=== PATIENT | male | born 1935 | race Caucasian/White ===

== ENCOUNTER → 2018-05-02 | Outpatient (CLI) | payer MEDICARE, OTHER ==
--- NOTE | 2018-05-02 14:00 | XR ---
EXAMINATION TYPE: XR lumbar spine 2 or 3V DATE OF EXAM: 05/02/2018 COMPARISON: None HISTORY: Bilateral sciatica TECHNIQUE: Three-view lumbar spine FINDINGS: There 5 lumbar-type vertebral bodies. Pedicles are intact. There is loss of disc height L3- 4 L4-5 L5-S1. Disc space narrowing is present posteriorly L1-L2 3. Vertebral body heights are preserv ed. Scoliosis is present. IMPRESSION: 1. Degenerative disc changes L3-4 through L5-S1.
== END | disposition home or self-care (01) ==
LOC: RADXRMAIN 11:27
PROVIDERS: ATTEND Family Medicine
DX: M47.817 Spondylosis without myelopathy or radiculopathy, lumbosacral region (principal)
CPT/HCPCS: 72100

== ENCOUNTER 2018-05-05 10:23 | Observation (INO) | payer MEDICARE, OTHER ==
[2018-05-05] MEDS ORDERED: HYDROcodone/APAP 5-325MG 1 EACH TAB PO STA (10:51)
--- NOTE | 2018-05-05 10:58 | ED ---
Back Pain HPI - General Chief Complaint: Back Pain/Injury Stated Complaint: SCIATICA Time Seen by Provider: 05/05/18 10:35 Source: patient Limitations: no limitations - History of Present Illness Initial Comments: Patient is an 82-year-old male presents with a chief complaint back pain and sciatica. The patient states that this pain has been going on for about 5 weeks however has been gradually getting worse. The patient and his state that since yesterday the pain has been so bad that the patient is unable to walk without holding onto something. The patient had a fall yesterday where he hit his head on a garbage can. The patient denies the use of blood thinners. He denies loss of consciousness, he remembers the entire event. Patient cannot identify an inciting incidents to his back pain however he states that he had x- rays previously that showed degenerative disc disease. He is scheduled for an MRI on May 24 of this year. - Related Data Home Medications Medication Instructions Recorded Confirmed Celecoxib [CeleBREX] 200 mg PO BID 05/05/18 05/05/18 Fish Oil/Dha/Epa [Fish Oil 1,200 1 cap PO DAILY 05/05/18 05/05/18 mg Fish Oil] HYDROcodone/APAP 10-325MG [[place] 1 tab PO DAILY PRN 05/05/18 05/05/18 10-325] Lisinopril [Zestril] 5 mg PO HS 05/05/18 05/05/18 Multivitamins, Thera [Multivitamin 1 tab PO DAILY 05/05/18 05/05/18 (formulary)] Saw [place] 500 mg PO DAILY 05/05/18 05/05/18 Simvastatin [Zocor] 20 mg PO HS 05/05/18 05/05/18 Turmeric Root Extract [Turmeric] 500 mg PO DAILY 05/05/18 05/05/18 Allergies Allergy/AdvReac Type Severity Reaction Status Date / Time No Known Allergies Allergy Verified 05/05/18 12:26 Review of Systems ROS Statement: Those systems with pertinent positive or pertinent negative responses have been documented in the HPI. ROS Other: All systems not noted in ROS Statement are negative. Musculoskeletal: Reports: back pain, arthralgia, other Neurological: Reports: abnormal gait Past Medical History Past Medical History: Atrial Fibrillation, Hypertension History of Any Multi-Drug Resistant Organisms: None Reported Past Surgical History: Orthopedic Surgery Past Psychological History: No Psychological Hx Reported Smoking Status: Former smoker Past Alcohol Use History: Rare Past Drug Use History: None Reported General Exam Limitations: no limitations General appearance: alert, in no apparent distress Head exam: Present: normocephalic, other (Patient has a bruise and a small abrasion to the left lateral aspect of his head, just left of the lateral canthus of the left eye.) Eye exam: Present: normal appearance ENT exam: Present: normal exam Neck exam: Present: normal inspection Respiratory exam: Present: normal lung sounds bilaterally. Absent: respiratory distress Cardiovascular Exam: Present: regular rate, normal rhythm GI/Abdominal exam: Present: soft. Absent: distended, tenderness Rectal exam: Present: deferred Extremities exam: Present: normal inspection, other (Patient is a small abrasion over the anterior left knee Secondary to fall) Back exam: Present: normal inspection, other (Patient has limited range of motion in the lumbar spine however he has no tenderness to palpation or percussion of the spine.). Absent: full ROM, tenderness, muscle spasm, paraspinal tenderness, vertebral tenderness Neurological exam: Present: alert, altered, other (Patient has an antalgic gait secondary to pain. Lower extremity reflexes are concerning for a decreased right patellar reflex, left patellar, and bilateral Achilles tendon reflexes are 2+) Psychiatric exam: Present: normal affect, normal mood Skin exam: Present: warm, dry, intact Course Vital Signs 05/05/18 10:29 Temperature 98.3 F Pulse Rate 67 Respiratory 18 Rate Blood Pressure 178/77 O2 Sat by Pulse 98 Oximetry Medical Decision Making - Medical Decision Making Patient is an 82-year-old male who presents with chief complaint back pain. On initial evaluation, vital signs show hypertension but otherwise stable. Patient is in no acute distress. Pulses are 2+ bilaterally in the upper and lower extremities. At this time, patient given [place] for pain, he'll be sent for a computed tomography scan evaluation of the head and C-spine given his recent fall. The family expresses concern about the patient's worsening symptoms and recent fall, I believe that the patient does need an MRI however I believe that it should be expedited as the patient's symptoms continue to worsen. At this time there does not appear to be any symptoms concerning of spinal cord compression as she denies bowel or bladder dysfunction, perennial anesthesia, or any numbness or tingling. Patient is able to ambulate with assistance. 12:[address] evaluation of the head and neck are unremarkable except for moderate degenerative changes of the cervical spine. Lumbar computed tomography scan shows degenerative changes with moderate central canal compromise most notably at L2-L3, L3 and L4. Lab evaluation is unremarkable. This case was discussed with Dr. Finney who accepted admission on behalf of Dr. Ortega. MRI has been ordered. I discussed with the patient, he is agreeable. - Lab Data Result diagrams: 05/05/18 11:00 05/05/18 11:00 Lab Results 05/05/18 05/05/18 05/05/18 Range/Units 11:00 11:00 11:00 WBC 8.0 (3.8-10.6) k/uL RBC 5.37 (4.30-5.90) m/uL Hgb 15.9 (13.0-17.5) gm/dL Hct 48.6 (39.0-53.0) % MCV 90.4 (80.0-100.0) fL MCH 29.6 (25.0-35.0) pg MCHC 32.7 (31.0-37.0) g/dL RDW 13.4 (11.5-15.5) % Plt Count 253 (150-450) k/uL Neutrophils % 78 % Lymphocytes % 13 % Monocytes % 5 % Eosinophils % 2 % Basophils % 0 % Neutrophils # 6.3 (1.3-7.7) k/uL Lymphocytes # 1.1 (1.0-4.8) k/uL Monocytes # 0.4 (0-1.0) k/uL Eosinophils # 0.2 (0-0.7) k/uL Basophils # 0.0 (0-0.2) k/uL PT 10.1 (9.0-12.0) sec INR 1.0 (<1.2) Sodium 141 (137-145) mmol/L Potassium 4.6 (3.5-5.1) mmol/L Chloride 110 H (98-107) mmol/L Carbon Dioxide 19 L (22-30) mmol/L Anion Gap 12 mmol/L BUN 17 (9-20) mg/dL Creatinine 0.74 (0.66-1.25) mg/dL Est GFR (CKD-EPI)AfAm >90 (>60 ml/min/1.73 sqM) Est GFR (CKD-EPI)NonAf 86 (>60 ml/min/1.73 sqM) Glucose 104 H (74-99) mg/dL Calcium 9.2 (8.4-10.2) mg/dL Disposition Clinical Impression: Sciatica, Abnormal gait, Low back pain Disposition: HOME SELF-CARE Condition: Good Is patient prescribed a controlled substance at d/c from ED?: No Decision to Admit Reason: Admit from EC - Out of Hospital Transfer - Req. Specs Out of Hospital Transfer - Requested Specifics: Other Non-Acute
[2018-05-05 11:19] LABS: Basophils % (A) 0 %; Eosinophils # (A) 0.2 k/uL (0-0.7); Eosinophils % (A) 2 %; HCT 48.6 % (39.0-53.0); HGB 15.9 gm/dL (13.0-17.5); Lymphocytes # (A) 1.1 k/uL (1.0-4.8); Lymphocytes % (A) 13 %; MCH 29.6 pg (25.0-35.0); MCHC 32.7 g/dL (31.0-37.0); MCV 90.4 fL (80.0-100.0); Mean Platelet Volume 6.3; Monocytes # (A) 0.4 k/uL (0-1.0); Monocytes % (A) 5 %; Neutrophils # (A) 6.3 k/uL (1.3-7.7); Neutrophils % (A) 78 %; Platelet Count 253 k/uL (150-450); RBC 5.37 m/uL (4.30-5.90); RDW 13.4 % (11.5-15.5)
[2018-05-05 11:24] LABS: Anion Gap 12 mmol/L; Blood Urea Nitrogen 17 mg/dL (9-20); Calcium 9.2 mg/dL (8.4-10.2); Carbon Dioxide 19 mmol/L (22-30); Chloride 110 mmol/L (98-107); Glucose 104 mg/dL (74-99); Potassium 4.6 mmol/L (3.5-5.1); Sodium 141 mmol/L (137-145)
[2018-05-05 11:27] LABS: Prothrombin Time 10.1 sec (9.0-12.0)
--- NOTE | 2018-05-05 11:49 | CT ---
EXAMINATION TYPE: CT lumbar spine wo con DATE OF EXAM: 05/05/2018 11:42 AM COMPARISON: None. HISTORY: Sciatica CT DLP: 779.6 mGycm Automated exposure control for dose reduction was used. Unenhanced CT of the lumbar spine was performed. Bone and soft tissue window settings are submitted as well as coronal and sagittal reconstructions. FINDINGS: Visualized portions of the lungs are clear. There is moderate atheromatous calcification of the aorta. Paraspinal soft tissues are otherwise normal. Vertebral body height and alignment are maintained. There is no evidence of spondylolysis or spondylo listhesis. T12-L1, intervertebral foramina appear well maintained. There is no significant compressive discopath y. The facets are unremarkable. L1-L2: Is mild disc space loss. There is a diffuse disc displacement. The intervertebral foramina are widely maintained. There is minor hypertrophic change in the facets. L2-L3: The intervertebral foramina are widely maintained. There is a diffuse disc displacement. This hypertrophic changes in the facets. There is moderate central canal stenosis. L3-L4: There is marked disc space loss. The intervertebral foramina appear well maintained. There is a diffuse disc displacement. This hypertrophic changes in the facets. There is moderate central canal stenosis. L4-L5: There is disc space loss. There is spondylosis deformans present. There is right-sided interve rtebral foraminal narrowing. There is a diffuse disc displacement. There are hypertrophic changes in the facets. There is mild trefoiling of the thecal sac. L5-S1: There is disc space loss and a vacuum phenomena. There is mild, bilateral intervertebral lit inal narrowing. There is hypertrophic changes in the facets. IMPRESSION: 1. DIFFUSE DEGENERATIVE DISC DISEASE AND FACET ARTHROPATHY. 2. VARYING DEGREES OF CENTRAL CANAL COMPROMISE, MOST MARKED AT L2-3 AND L3-4.
[2018-05-05] MEDS ORDERED: NALOXONE 0.4 MG/ML 1 ML VIAL IV PRN (11:53)
[2018-05-05] MEDS ORDERED: HYDROcodone/APAP 5-325MG 1 EACH TAB PO PRN (11:53)
--- NOTE | 2018-05-05 12:01 | CT ---
EXAMINATION TYPE: CT brain manolo aguilar DATE OF EXAM: 05/05/2018 COMPARISON: NONE HISTORY: fall CT DLP: 1368 mGycm Automated exposure control for dose reduction was used. TECHNIQUE: CT scan of the head and cervical spine are performed without contrast. FINDINGS: BRAIN: There are generalized changes of sulcal prominence and ventriculomegaly, compatible with atrop hic change. There is diffuse periventricular white matter lucency, compatible with small vessel ische gissell change. There is no acute focal lesion, mass effect or midline shift identified. I do not see blanka dence of intracranial blood. There is minimal, chronic ethmoidal sinus mucosal disease. The bony calvarium is intact. IMPRESSION: 1. NO ACUTE INTRACRANIAL ABNORMALITY. 2. MINIMAL, CHRONIC SINUS MUCOSAL DISEASE. 3. DEGENERATIVE CHANGE. CERVICAL SPINE: There are emphysematous changes within the lungs. Prevertebral soft tissues are normal. There is a retrograde listhesis of C3 on C4 and a mild antegrade listhesis of C4 on C5. Atlantoaxial relationships are normal. There is disc space loss and hypertrophic spondylosis at C3-4, C5-6 and C6- 7. There is uncovertebral joint disease present at these levels. There is facet arthropathy on the le ft at C2-3 and on the right at C4-5. There is left-sided facet arthropathy at C5-6 and C6-7. No protr usion is seen. No fracture is identified. IMPRESSION: 1. NO ACUTE OSSEOUS ABNORMALITY. 2. MODERATE DEGENERATIVE CHANGE.. 3. EMPHYSEMATOUS CHANGE.
[2018-05-05] MEDS ORDERED: HYDROcodone/APAP 10-325MG 1 EACH TAB PO PRN (13:26)
[2018-05-05] MEDS ORDERED: ALPRAZolam 0.25 MG TAB PO PRN (13:27)
[2018-05-05] MEDS ORDERED: MELATONIN 3 MG TABLET PO PRN (13:27)
[2018-05-05] MEDS ORDERED: HYDROmorphone 1 MG/ML 1 ML SYRINGE IVP PRN (13:27)
[2018-05-05] MEDS ORDERED: ACETAMINOPHEN TAB 500 MG TAB PO PRN (13:27)
[2018-05-05 15:35] VITALS: BMI 29.1
[2018-05-05] MEDS ORDERED: hydrALAZINE HCL 20 MG/ML 1 ML VIAL IVP PRN (15:51)
[2018-05-05] MEDS ORDERED: KETOROLAC 30 MG/ML 1 ML VIAL IVP PRN (15:52)
[2018-05-05 17:04] LABS: Glucose,Whole Blood 131 mg/dL (75-99)
[2018-05-05 17:33] LABS: Appearance,Urine Clear (Clear); Bilirubin,Urine Negative (Negative); Blood,Urine Negative (Negative); Color,Urine Yellow; Glucose,Urine (UA) Negative (Negative); Ketones,Urine Negative (Negative); Leukocyte Esterase,Urine Negative (Negative); Nitrite,Urine Negative (Negative); Protein,Urine Negative (Negative); Specific Gravity,Urine 1.022 (1.001-1.035); Urobilinogen,Urine <2.0 mg/dL (<2.0)
[2018-05-05] MEDS: methylPREDNISolone SOD SUCCI 125 MG/2 ML VIAL IV SCH ×2 (17:47→23:16)
[2018-05-05] MEDS: INSULIN ASPART 100 UNIT/ML 1 ML 10 ML VIAL SQ SCH ×2 (17:49→22:21)
--- NOTE | 2018-05-05 19:50 | P.CNOR ---
History of Present Illness - [facility] Consult date: 05/05/18 Consult reason: low back pain History of present illness: This is an 82-year-old male with a fairly recent history of low back pain. He states that he has been having pain for the last 5 weeks or so but has been progressively worse over the past week. He states that he has noticed difficulty walking secondary to pain as well as weakness in his legs. He denies numbness or tingling but states that his legs "won't do what he wants them to do". He states that he fell yesterday due to the weakness in his legs. He reports no bowel or bladder changes. His back pain became worse after the fall. He is brought to the emergency department this morning by family and admitted to observation. We're consulted for orthopedic spine evaluation. Past Medical History Past Medical History: Atrial Fibrillation, Eye Disorder, Hyperlipidemia, Hypertension History of Any Multi-Drug Resistant Organisms: None Reported Past Surgical History: Orthopedic Surgery Additional Past Surgical History / Comment(s): right rotator cuff, bilateral carpal tunnel Past Anesthesia/Blood Transfusion Reactions: No Reported Reaction Past Psychological History: No Psychological Hx Reported Smoking Status: Former smoker Past Alcohol Use History: Rare Past Drug Use History: None Reported Medications and Allergies Home Medications Medication Instructions Recorded Confirmed Type Celecoxib [CeleBREX] 200 mg PO BID 05/05/18 05/05/18 History Fish Oil/Dha/Epa [Fish Oil 1,200 1 cap PO DAILY 05/05/18 05/05/18 History mg Fish Oil] HYDROcodone/APAP 10-325MG [[place] 1 tab PO DAILY PRN 05/05/18 05/05/18 History 10-325] Lisinopril [Zestril] 5 mg PO HS 05/05/18 05/05/18 History Multivitamins, Thera [Multivitamin 1 tab PO DAILY 05/05/18 05/05/18 History (formulary)] Saw [place] 500 mg PO DAILY 05/05/18 05/05/18 History Simvastatin [Zocor] 20 mg PO HS 05/05/18 05/05/18 History Turmeric Root Extract [Turmeric] 500 mg PO DAILY 05/05/18 05/05/18 History Allergies Allergy/AdvReac Type Severity Reaction Status Date / Time No Known Allergies Allergy Verified 05/05/18 12:26 Physical Examination This is a pleasant 82-year-old male in no acute distress. He is alert and oriented 3. Exam of his head neck reveal no obvious deformity. There is a small scratch over his left eye. He has full cervical spine motion without difficulty or pain. There is no pain to palpation about the cervical spine or paraspinal musculature. Exam of the upper extremities is unremarkable. He has fairly good shoulder, elbow, wrist and finger motion without difficulty or pain. Exam of the thoracic and lumbar spine reveal no obvious deformity. There is mild pain with palpation about the lower lumbar spine and paraspinal musculature. Exam of the lower extremities reveals no deformity. There is an abrasion about the left lower leg which is covered with clean dressing. He is able to wiggle toes. He has weakness with dorsiflexion of the great toes against resistance bilaterally. Strength is +2-3/5 bilaterally. Plantar flexion against resistance is +5/5 bilaterally. He is able to lift each leg off the bed independently but is unable to sustain leg raise against resistance. Pedal pulses are +2/4 bilaterally. Capillary refills less than [address] of the lumbar spine reveals degenerative changes. There is significant degenerative disc disease at L3-4 and L4-5. There is some spinal canal stenosis noted. No compression fractures identified. - Labs Labs: Abnormal Lab Results - Last 24 Hours (Table) 05/05/18 05/05/18 Range/Units 11:00 17:02 Chloride 110 H (98-107) mmol/L Carbon Dioxide 19 L (22-30) mmol/L Glucose 104 H (74-99) mg/dL POC Glucose (mg/dL) 131 H (75-99) mg/dL H & H 05/05/18 Range/Units 11:00 Hgb 15.9 (13.0-17.5) gm/dL Hct 48.6 (39.0-53.0) % Coagulation 05/05/18 Range/Units 11:00 INR 1.0 (<1.2) Result Diagrams: 05/05/18 11:00 05/05/18 11:00 Assessment and Plan (1) Lumbar degenerative disc disease Current Visit: Yes Status: Acute Code(s): M51.36 - OTHER INTERVERTEBRAL DISC DEGENERATION, LUMBAR REGION SNOMED Code(s): 65365968 (2) Lumbar canal stenosis Current Visit: Yes Status: Acute Code(s): M48.061 - SPINAL STENOSIS, LUMBAR REGION WITHOUT NEUROGENIC KJ SNOMED Code(s): 53841474 (3) Low back pain Current Visit: Yes Status: Acute Code(s): M54.5 - LOW BACK PAIN SNOMED Code(s): 658032528 Plan: The clinical and radiographic findings are discussed the patient. I have started site Medrol 80 mg IVP every 8 hours 3 doses. The patient has been ambulating in the hallway with a walker since the first dose of steroid. An MRI has been ordered by the emergency department. MRI will most likely be done on Monday. We will await results of the MRI and proceed with recommendations as indicated at that time. He is to report any changes in bowel or bladder or increased weakness to the lower extremities.
[2018-05-05] MEDS ORDERED: MELOXICAM 7.5 MG TAB PO SCH (21:00)
--- NOTE | 2018-05-05 21:44 | HP ---
HISTORY AND PHYSICAL DATE OF SERVICE: 05/05/2018 CHIEF COMPLAINT: Back pain. HISTORY OF PRESENT ILLNESS: This 82-year-old gentleman with a past medical history of multiple medical problems, including atrial fibrillation, hypertension, hyperlipidemia, being followed by Dr. Ricardo Ortega in the outpatient setting, is complaining of back pain for the last 5 weeks. The pain was felt in the back and radiating downward to both legs. Because of increasing pains, the patient came to [place]. Patient unable to walk. Patient also took a fall, scraping the left knee also. There is no history of fever, rigors, chills at this time. CT scan of the back showed diffuse DJD varying degrees of central canal compromise, also. There is no history of fever, rigors. No history of any headache, loss consciousness, seizures at this time. PAST MEDICAL HISTORY: History of atrial fibrillation, history of hypertension, hyperlipidemia, history of DJD. HOME MEDICATIONS: 1. Turmeric extract 500 mg p.o. daily. 2. Zocor 20 mg q.h.s. 3. Saw [place] 500 mg p.o. daily. 4. Multivitamins 1 p.o. daily. 5. Zestril 5 mg q.h.s. 6. [place] 1 tablet b.i.d. p.r.n. 7. Fish oil 1 capsule b.i.d. 8. Celebrex 200 mg b.i.d. ALLERGIES: None. FAMILY HISTORY: No history of heart disease or strokes in the family. SOCIAL HISTORY: previous history of smoking. Occasional alcohol intake. REVIEW OF SYSTEMS: ENT: No diminished hearing, diminished vision. CARDIOVASCULAR: No angina, palpitations. RESPIRATORY: No cough or hemoptysis. GI: No nausea or vomiting. : No dysuria. NERVOUS: No numbness or weakness. ALLERGY/IMMUNOLOGY: No asthma or hay fever. MUSCULOSKELETAL: As mentioned earlier. HEMATOLOGY/ONCOLOGY: No history of anemia. ENDOCRINE: No history of diabetes, hypothyroidism. CONSTITUTIONAL: As mentioned earlier. DERMATOLOGY: Negative. RHEUMATOLOGY: Negative. PSYCHIATRY: As mentioned earlier. PHYSICAL EXAMINATION: Alert oriented x3. Pulse 59, blood pressure 166/90, respirations 16, temperature 97.2, pulse ox 96% on room air. HEENT: Conjunctivae normal. Oral mucosa moist. NECK: No jugular venous distention. No carotid bruits. No lymph node enlargement. CARDIOVASCULAR: S1, S2 muffled. RESPIRATORY: Breath sounds diminished in the bases. No rhonchi. No crackles. ABDOMEN: Soft, nontender. No mass palpable. LEGS: No edema. No swelling. NERVOUS SYSTEM: Higher functions as mentioned earlier. Moves all 4 limbs. No focal motor or sensory deficits. LYMPHATIC: No lymphadenopathy in neck or axillae. SKIN: No ulcer, rash or bleeding. BACK: Some tenderness present. Some gait dysfunction also present. LABS: CBC within normal limits. CO2 is 19. ASSESSMENT: 1. Back pain with sciatica with severe degenerative joint disease. 2. Varying degrees of central canal compromise, marked at L2-3 and L3-4. 3. Gait dysfunction. 4. Atrial fibrillation. 5. Hypertension. 6. Hyperlipidemia. 7. History of degenerative joint disease. 8. History of nicotine dependence. RECOMMENDATIONS AND DISCUSSION: In this 82-year-old gentleman who presented with multiple complex medical issues , we will monitor the patient closely, continue the current medical management and continue symptomatic treatment. Otherwise, orthopedic evaluation, IV steroids have been recommended by Orthopedics. Resume the home medications, oral pain medications. I would also recommend to continue the current medications and further recommendations to follow. See orders for further details. MMODL / IJN: [id number] / MTDD
[2018-05-05 22:19] LABS: Glucose,Whole Blood 159 mg/dL (75-99)
[2018-05-05] MEDS: LISINOPRIL 5 MG TAB PO SCH (22:21)
[2018-05-05] MEDS: ATORVASTATIN 10 MG TAB PO SCH (22:21)
[2018-05-05] MEDS: HEPARIN SODIUM,PORCINE 5,000 UNIT/ML 1 ML VIAL SQ SCH (22:21)
[2018-05-06 06:56] LABS: Glucose,Whole Blood 161 mg/dL (75-99)
[2018-05-06 07:32] LABS: Basophils % (A) 0 %; Eosinophils % (A) 0 %; HCT 49.3 % (39.0-53.0); HGB 16.2 gm/dL (13.0-17.5); Lymphocytes # (A) 0.6 k/uL (1.0-4.8); Lymphocytes % (A) 8 %; MCH 29.6 pg (25.0-35.0); MCHC 32.9 g/dL (31.0-37.0); MCV 90.1 fL (80.0-100.0); Mean Platelet Volume 6.4; Monocytes # (A) 0.1 k/uL (0-1.0); Monocytes % (A) 2 %; Neutrophils # (A) 6.8 k/uL (1.3-7.7); Neutrophils % (A) 90 %; Platelet Count 268 k/uL (150-450); RBC 5.48 m/uL (4.30-5.90); RDW 13.2 % (11.5-15.5); WBC 7.6 k/uL (3.8-10.6)
[2018-05-06 07:45] LABS: Anion Gap 10 mmol/L; Blood Urea Nitrogen 19 mg/dL (9-20); Carbon Dioxide 24 mmol/L (22-30); Chloride 105 mmol/L (98-107); Glucose 174 mg/dL (74-99); Sodium 139 mmol/L (137-145)
[2018-05-06] MEDS ORDERED: NON-FORMULARY DRUG (Fish Oil/Dha/Epa [Fish Oil 1,200 Mg Fish Oil] 1 CAP) PO SCH (09:00)
[2018-05-06] MEDS ORDERED: NON-FORMULARY DRUG (Saw Palmetto [Saw Palmetto] 500 MG) PO SCH (09:00)
[2018-05-06] MEDS: INSULIN ASPART 100 UNIT/ML 1 ML 10 ML VIAL SQ SCH ×2 (09:22→15:51)
[2018-05-06] MEDS: methylPREDNISolone SOD SUCCI 125 MG/2 ML VIAL IV SCH (09:22)
[2018-05-06] MEDS: HEPARIN SODIUM,PORCINE 5,000 UNIT/ML 1 ML VIAL SQ SCH ×2 (09:22→20:45)
[2018-05-06] MEDS: MULTIVITAMINS, THERA 1 EACH TAB PO SCH (09:23)
[2018-05-06] MEDS: PANTOPRAZOLE 40 MG TABLET PO SCH (09:23)
--- NOTE | 2018-05-06 09:45 | P.PN ---
Subjective Progress Note Date: 05/06/18 Principal diagnosis: Low back pain. Lumbar stenosis. Lumbar degenerative disc disease. This is an 82-year-old male who we are following regarding his low back pain with lower extremity weakness. He states that his pain is improved today. He has been ambulating without the use of the walker today. He is awaiting MRI tomorrow. Objective - Vital Signs Vital signs: Vital Signs Temp 97.8 F 05/06/18 08:00 Pulse 100 05/06/18 08:00 Resp 18 05/06/18 08:00 BP 148/89 05/06/18 08:00 Pulse Ox 91 L 05/06/18 08:00 Intake & Output 05/05/18 05/06/18 05/06/18 18:59 06:59 18:59 Weight 84.3 kg Other: Voiding Method Toilet Toilet # Voids 2 - Exam This is a pleasant 82-year-old male in no acute distress. He is alert and oriented 3. He is sitting up in a chair. He has less pain with palpation about the lumbar spine today. He continues to have weakness to the lower extremities on exam but no pain with motion of the legs today. Pedal pulse is + 2/4 bilaterally. Sensation is intact. - Labs CBC & Chem 7: 05/06/18 07:01 05/06/18 07:01 Labs: Abnormal Lab Results - Last 24 Hours (Table) 05/05/18 05/05/18 05/05/18 Range/Units 11:00 17:02 22:17 Lymphocytes # (1.0-4.8) k/uL Chloride 110 H (98-107) mmol/L Carbon Dioxide 19 L (22-30) mmol/L Glucose 104 H (74-99) mg/dL POC Glucose (mg/dL) 131 H 159 H (75-99) mg/dL 05/06/18 05/06/18 05/06/18 Range/Units 06:54 07:01 07:01 Lymphocytes # 0.6 L (1.0-4.8) k/uL Chloride (98-107) mmol/L Carbon Dioxide (22-30) mmol/L Glucose 174 H (74-99) mg/dL POC Glucose (mg/dL) 161 H (75-99) mg/dL Assessment and Plan (1) Lumbar degenerative disc disease Current Visit: Yes Status: Acute Code(s): M51.36 - OTHER INTERVERTEBRAL DISC DEGENERATION, LUMBAR REGION SNOMED Code(s): 42483171 (2) Lumbar canal stenosis Current Visit: Yes Status: Acute Code(s): M48.061 - SPINAL STENOSIS, LUMBAR REGION WITHOUT NEUROGENIC KJ SNOMED Code(s): 14804049 (3) Low back pain Current Visit: Yes Status: Acute Code(s): M54.5 - LOW BACK PAIN SNOMED Code(s): 418439033 Plan: The clinical and radiographic findings are discussed the patient. Complete the 3 doses of Solu-Medrol today. We'll continue to follow and await MRI results. We will most likely send him home on a tapered prednisone dose.
[2018-05-06 12:09] LABS: Glucose,Whole Blood 168 mg/dL (75-99)
[2018-05-06 16:01] VITALS: RESP 16
--- NOTE | 2018-05-06 16:37 | PN ---
PROGRESS NOTE I am covering for Dr. Ricardo Ortega. This 82-year-old gentleman who was admitted with back pains, headache, is on IV steroids. Patient is improving slightly and MRI is also ordered. No chest pain. No palpitations. No fever. PHYSICAL EXAM: Alert and oriented x3. Pulse 100, blood pressure 14/80 respiration 18, temperature 97.8, pulse ox 98% on room air. HEENT: Conjunctivae normal. Oral mucosa moist. NECK: No jugular venous distention. No lymph nodes. CARDIAC: S1, S2. RESPIRATORY: Diminished breath sounds at the bases. No rhonchi. ABDOMEN: Soft, nontender. LEGS: Movements are minimally painful. NERVOUS SYSTEM: No focal deficits. LABS: CBC within normal limits. Glucose 174. ASSESSMENT: 1. Back pain, sciatica with severe degenerative joint disease. 2. Varying degrees of central canal compromise marked at L2-3, L3-4 on MRI. 3. Gait dysfunction. 4. Atrial fibrillation. 5. Hypertension. 6. History of degenerative joint disease. 7. History of nicotine dependence. RECOMMENDATIONS: Recommend to continue current management, continue symptomatic treatment, continue with IV steroids. Increase ambulation. MRI per Orthopedic surgery. Dr. Ortega will follow. MMODL / IJN: [id number] /
[2018-05-06 17:20] LABS: Glucose,Whole Blood 219 mg/dL (75-99)
[2018-05-06 20:40] LABS: Glucose,Whole Blood 185 mg/dL (75-99)
[2018-05-06] MEDS: ATORVASTATIN 10 MG TAB PO SCH (20:44)
[2018-05-06] MEDS: LISINOPRIL 5 MG TAB PO SCH (20:44)
[2018-05-07 07:38] LABS: Basophils % (A) 0 %; Eosinophils % (A) 0 %; HCT 47.2 % (39.0-53.0); HGB 15.7 gm/dL (13.0-17.5); Lymphocytes # (A) 1.8 k/uL (1.0-4.8); Lymphocytes % (A) 14 %; MCH 29.5 pg (25.0-35.0); MCHC 33.3 g/dL (31.0-37.0); MCV 88.6 fL (80.0-100.0); Mean Platelet Volume 6.4; Monocytes # (A) 0.6 k/uL (0-1.0); Monocytes % (A) 5 %; Neutrophils # (A) 10.4 k/uL (1.3-7.7); Neutrophils % (A) 80 %; Platelet Count 334 k/uL (150-450); RBC 5.32 m/uL (4.30-5.90); RDW 13.4 % (11.5-15.5); WBC 12.9 k/uL (3.8-10.6)
[2018-05-07 07:56] LABS: Calcium 10.1 mg/dL (8.4-10.2); Potassium 4.7 mmol/L (3.5-5.1)
[2018-05-07] MEDS: MULTIVITAMINS, THERA 1 EACH TAB PO SCH (08:33)
[2018-05-07] MEDS: PANTOPRAZOLE 40 MG TABLET PO SCH (08:33)
[2018-05-07] MEDS: HEPARIN SODIUM,PORCINE 5,000 UNIT/ML 1 ML VIAL SQ SCH (08:33)
--- NOTE | 2018-05-07 09:00 | P.PN ---
Progress Note - Text Progress Note Date: 05/07/18 Patient is a very pleasant 82-year-old male who is seen and examined at bedside for follow up evaluation in regards to his low back pain and bilateral lower extremity weakness. He states his symptoms became severe on Monday he presented to the hospital for further evaluation. Since that time he was given Solu-Medrol 80 mg every 8 hours for 3 doses. Since that time his symptoms have had significant improvement. He is not currently experiencing significant lower extremity weakness or radiculopathy bilaterally. He has previously had some pain radiating down the posterior thighs and in the posterior calves bilaterally. He is able to stand and move without significant difficulty. He does feel he is improved significantly over the weekend and would like to be discharged home today. He is currently planning to have an MRI lumbar spine to be performed this morning. He had a CT of the lumbar spine performed which did show evidence of lumbar degenerative disc disease with some spinal canal stenosis. Physical exam: Patient is awake, alert, and oriented 3 Vital signs stable Good chest excursion with deep inspiration and expiration Abdomen soft nontender Examination of lumbar spine reveals skin is intact with no abrasions, lacerations, or bruises; no erythema, purulence or signs of infection Mild pain with palpation of the lower lumbosacral spine along the midline Dorsiflexion, plantarflexion, and extensor hallucis longus positive sustained bilaterally Able to stand on toes bilaterally without difficulty Some difficulty with standing on heels bilaterally Able to perform active hip flexion and knee extension against resistance without difficulty bilaterally Patient is able to stand and change positions without significant difficulty No signs or symptoms of DVT; no calf pain Neurovascularly intact Assessment: Low back pain Bilateral lower extremity weakness L3-4 and L4 to S5 significant degenerative disc disease Lumbar spinal canal stenosis Plan: 1. After physical examination of the patient further discussion with the patient, his symptoms have improved over the weekend. He is moving well without significant difficulty. He is able to actively perform active range of motion bilateral lower extremities without significant difficulty. He has some difficulty standing on his heels bilaterally. He is not currently experiencing significant low back pain but some back pain continues to be present. His legs feel stronger this morning than they did over the weekend. He is currently waiting for an MRI of the lumbar spine to be performed. We discussed we will review the MRI results. Given the significant improvement of his overall symptoms, we're not currently planning for acute surgical intervention in regards to his lumbar spine. We are currently planning to continue with treatment in the outpatient setting. We discussed that if he needed consultation and possible treatment with pain management or the possibility of surgical intervention if he were to fail all conservative treatment options, this can be discussed in detail in the outpatient setting. As previously discussed, we will plan to discharge him on a steroid taper at discharge. A prescription for prednisone 10 mg taper as written, signed, and placed in the patient's chart. From an orthopedic spine standpoint, patient is clear for discharge pending MRI results and clearance by medicine. 2. Medicine will continue to follow patient closely 3. Following discharge, patient a final with Nas Hernandez PA-C or Dr. John Rouse at [facility] in 2 weeks for further evaluation 4. Patient has been discussed in detail with Dr. John Rouse and he agrees with this plan
[2018-05-07 11:29] LABS: Hemoglobin A1C 6.4 % (4.0-6.0)
--- NOTE | 2018-05-07 12:22 | MR ---
EXAMINATION TYPE: MR lumbar spine wo/w con DATE OF EXAM: 05/07/2018 COMPARISON: CT lumbar spine 05/05/2018 HISTORY: sciatica TECHNIQUE: Multiplanar, multisequence images of the lumbar spine were acquired utilizing 8.5 mL intravenous Gada vist gadolinium contrast. L1-L2: There is a left posterior paracentral disc herniation resulting in moderate to severe canal st enosis, possible mass effect on the conus. Facet arthropathy with hypertrophy ligamentum flavum cause s some posterior lateral mass effect on the thecal sac. No significant foraminal encroachment. L2-L3: Posterior extension of endplate disc complex results in anterior mass effect on the thecal sac . Facet arthropathy causes posterior lateral mass effect on the thecal sac, there is moderate central canal stenosis. L3-L4: Posterior extension of endplate disc complex causes some anterior mass effect on the thecal sa c. Facet arthropathy causes posterior lateral mass effect on the thecal sac and encroaches on the lat eral recesses, there is some trefoil appearance of the thecal sac, differential extension of endplate disc complex results in greater left-sided foraminal encroachment. L4-L5: Posterior extension of endplate disc complex causes some anterior mass effect on the thecal sa c. Circumferential extension of endplate disc complex results in foraminal encroachment greater on th e right than on the left. Facet arthropathy with hypertrophy of the ligamentum flavum causes some pos terior lateral mass effect on the thecal sac right greater than left likely accentuated by spinal cur vature. L5-S1: Circumferential disc bulge, extension of endplate disc complex causes foraminal encroachment a nd contact the anterior thecal sac. Facet arthropathy changes present. No significant central stenosi s. Lumbar segments are intact. No paraspinal masses are identified. Conus medullaris has a normal appe arance. There is multilevel spondylosis with endplate discogenic marrow signal change. Loss of disc h eight and signal present at the intervertebral levels, there is multilevel vacuum disc phenomenon pre sent. There is a mild spinal curvature. Probable focal hemangioma present within the L2 vertebral bod y. Some minimal peripheral enhancement noted at the level of the patient's disc herniation at L1-2. N o additional abnormal enhancement following contrast administration. IMPRESSION: Degenerative disc disease, disc herniation at L1-2 with possible mass effect on the conus medullaris, multilevel spinal stenosis, multilevel foraminal encroachment, facet arthropathy as described.
--- NOTE | 2018-05-07 15:44 | DS ---
DISCHARGE SUMMARY FINAL DIAGNOSES: 1. Back pain, sciatica with severe degenerative joint disease. 2. Varying degrees of central canal compression marked at L2-3 and L3-4 on MRI. 3. Gait dysfunction. 4. Atrial fibrillation. 5. Hypertension. 6. History of degenerative joint disease. 7. History of nicotine dependence. DISCHARGE DISPOSITION: The patient is being discharged in stable condition with guarded prognosis. HISTORY OF PRESENT ILLNESS: This 82-year-old gentleman with past medical history of multiple medical problems is being by Dr. Ricardo Ortega in the outpatient setting for severe back pain and sciatica, gait dysfunction. The patient is treated with steroids which offered some symptomatic relief. Orthopedic Surgery saw the patient. Recommended outpatient followup. On exam, vitals are stable. Cardiovascular S1, S2. Abdomen soft. Nervous system: No focal deficits. DISCHARGE ADVICE AND MEDICATIONS: 1. Diet is cardiac diet. 2. Activity limited until followup. 3. Follow up with Dr. Ricardo Ortega in 2-3 days. 4. Follow up with Dr. Rouse as recommended. MEDICATIONS: 1. Fish oil 1 p.o. daily. 2. [place] 10 mg daily p.r.n. 3. Zestril 5 mg q.h.s. 4. Multivitamins one p.o. daily. 5. Saw palmetto 500 mg daily. 6. Zocor 20 mg q.h.s. 7. Turmeric extract 500 mg p.o. daily. 8. Protonix 40 mg daily. 9. Prednisone taper per orthopedic surgery that will be 30 mg daily for 4 days, 20 for 4 days, 10 for 4 days. 10.Silver sulfadiazine local application. Once again, the patient is being discharged in stable condition with guarded prognosis. PT/OT evaluation and possible walker also being arranged. MMODL / IJN: [id number] /
[2018-05-07 15:50] VITALS: BP 136/75; PULSE 64; TEMP 97.9
== END 2018-05-07 16:06 | disposition home or self-care (01) ==
LOC: EC 10:23 → 3OBS 11:53
PROVIDERS: ADMIT Family Medicine; ATTEND Family Medicine
DX: M47.26 Other spondylosis with radiculopathy, lumbar region (principal); M48.061 Spinal stenosis, lumbar region without neurogenic claudication; M51.16 Intervertebral disc disorders with radiculopathy, lumbar region; M51.36 Other intervertebral disc degeneration, lumbar region; R26.9 Unspecified abnormalities of gait and mobility; E78.5 Hyperlipidemia, unspecified; M19.90 Unspecified osteoarthritis, unspecified site; H57.9 Unspecified disorder of eye and adnexa; R53.1 Weakness; R51 Headache; I48.91 Unspecified atrial fibrillation; I10 Essential (primary) hypertension; S00.83XA Contusion of other part of head, initial encounter; W01.198A Fall on same level from slipping, tripping and stumbling with subsequent striking against other object, initial encounter; Z87.891 Personal history of nicotine dependence; Z79.891 Long term (current) use of opiate analgesic; Z79.899 Other long term (current) drug therapy
CPT/HCPCS: 99284 ×2; 96374; 96376 ×2; 36415; 97161; 97165; 80048 ×3; 85025 ×3; 85610; 81003; 83036; 72125; 72131; 70450; 72158; G0378 ×3; J1644 ×3; J2930 ×2; A9581

== ENCOUNTER → 2020-10-06 | Outpatient (CLI) | payer MEDICARE, OTHER ==
--- NOTE | 2020-10-06 11:00 | XR ---
EXAMINATION TYPE: XR chest 2V DATE OF EXAM: 10/06/2020 COMPARISON: NONE HISTORY: Cough TECHNIQUE: Frontal and lateral views of the chest are obtained. FINDINGS: There is no focal air space opacity, pleural effusion, or pneumothorax seen. The cardiac silhouette size is within normal limits. The aorta is dense. There are prominent lung volume suggest ing underlying COPD. The osseous structures are intact, postop change noted to the right humerus. IMPRESSION: No acute cardiopulmonary process.
== END | disposition home or self-care (01) ==
LOC: RADXRMAIN 09:32
PROVIDERS: ATTEND Family Medicine
DX: R05 Cough (principal)
CPT/HCPCS: 71046

== ENCOUNTER 2021-02-25 03:29 | Emergency (ER) | payer MEDICARE, OTHER ==
[2021-02-25 03:38] VITALS: PULSE 65; TEMP 97.5
--- NOTE | 2021-02-25 04:30 | ED ---
SOB HPI - General Chief Complaint: Shortness of Breath Stated Complaint: ALAN Time Seen by Provider: 02/25/21 04:16 Source: patient, family Mode of arrival: wheelchair Limitations: no limitations - History of Present Illness Initial Comments: This patient is an 85-year-old man who presents to be evaluate for shortness of breath. The patient states that he had been feeling pretty well today until he got up this morning to use the bathroom. When he went back to bed to lie down and he was feeling like he was short of breath. When I see the patient this morning, he states that the symptoms have resolved since leaving home. The patient has been having problems with intermittent shortness of breath since the end of December. At that time he had developed a significant cough, and was seen at his physician office and also an urgent care. He had been given course of steroid, and inhaler, and medication for reflux. The cough and breathing seemed to improve somewhat so they could not tell which medication seem to bring on the improvement. He has not had fever or chills. No chest pain. No leg pain or swelling. No change in urination or bowel movements. MD Complaint: shortness of breath, cough Onset/Timin -: month(s) Severity scale (1-10): 0 Consistency: constant Improves With: nothing Worsens With: nothing Associated Symptoms: denies other symptoms - Related Data Home Medications Medication Instructions Recorded Confirmed Fish Oil/Dha/Epa [Fish Oil 1,200 1 cap PO DAILY 05/05/18 05/05/18 mg Fish Oil] HYDROcodone/APAP 10-325MG [[place] 1 tab PO DAILY PRN 05/05/18 05/05/18 10-325] Multivitamins, Thera [Multivitamin 1 tab PO DAILY 05/05/18 05/05/18 (formulary)] Saw [place] 500 mg PO DAILY 05/05/18 05/05/18 Simvastatin [Zocor] 20 mg PO HS 05/05/18 05/05/18 Turmeric Root Extract [Turmeric] 500 mg PO DAILY 05/05/18 05/05/18 lisinopriL [Zestril] 5 mg PO HS 05/05/18 05/05/18 Previous Rx's Medication Instructions Recorded Pantoprazole [Protonix] 40 mg PO IRASEMA-BRKFST #30 tablet. 05/07/18 SILVER sulfADIAZINE CREAM 1 applic TOPICAL DAILY applic 05/07/18 [Silvadene Cream] predniSONE See Taper PO DAILY #24 tab 05/07/18 Allergies Allergy/AdvReac Type Severity Reaction Status Date / Time No Known Allergies Allergy Verified 02/25/21 03:38 Review of Systems ROS Statement: Those systems with pertinent positive or pertinent negative responses have been documented in the HPI. ROS Other: All systems not noted in ROS Statement are negative. Constitutional: Denies: fever, chills ENT: Denies: throat pain Respiratory: Reports: cough, dyspnea. Denies: wheezes, hemoptysis Cardiovascular: Reports: orthopnea. Denies: chest pain, palpitations, edema, syncope Gastrointestinal: Denies: abdominal pain, nausea, vomiting, diarrhea Genitourinary: Denies: dysuria, hematuria Musculoskeletal: Denies: back pain Skin: Denies: rash Neurological: Denies: headache, weakness, numbness Past Medical History Past Medical History: Atrial Fibrillation, Eye Disorder, Hyperlipidemia, Hypertension History of Any Multi-Drug Resistant Organisms: None Reported Past Surgical History: Orthopedic Surgery Additional Past Surgical History / Comment(s): right rotator cuff, bilateral carpal tunnel Past Anesthesia/Blood Transfusion Reactions: No Reported Reaction Past Psychological History: No Psychological Hx Reported Smoking Status: Former smoker Past Alcohol Use History: Rare Past Drug Use History: None Reported General Exam Limitations: no limitations General appearance: alert, in no apparent distress Head exam: Present: atraumatic, normocephalic Eye exam: Present: normal appearance. Absent: scleral icterus, conjunctival injection ENT exam: Present: normal oropharynx Respiratory exam: Present: normal lung sounds bilaterally. Absent: respiratory distress, wheezes, rales, rhonchi, stridor Cardiovascular Exam: Present: regular rate, normal rhythm, systolic murmur (Grade 2/6 systolic ejection murmur.). Absent: diastolic murmur, rubs, gallop GI/Abdominal exam: Present: soft. Absent: distended, tenderness, guarding, rebound, rigid, mass Extremities exam: Present: normal inspection, normal capillary refill. Absent: pedal edema, calf tenderness Back exam: Present: normal inspection. Absent: CVA tenderness (R), CVA tenderness (L) Neurological exam: Present: alert Skin exam: Present: warm, dry, intact, normal color. Absent: rash Course Vital Signs 02/25/21 03:31 Temperature 97.5 F L Pulse Rate 65 Respiratory 26 H Rate Blood Pressure 163/82 O2 Sat by Pulse 95 Oximetry Medical Decision Making - Medical Decision Making Patient's symptoms had resolved and they did not recur here. He is feeling well and would like to go. I discussed the results with the patient and his and they're going to follow with the favor maker as scheduled. Discussed following with cardiology as well to ensure that this is not an anginal equi valent. - Lab Data Result diagrams: 02/25/21 04:54 02/25/21 04:54 Lab Results 02/25/21 02/25/21 02/25/21 Range/Units 04:54 04:54 04:54 WBC 6.0 (3.8-10.6) k/uL RBC 4.85 (4.30-5.90) m/uL Hgb 14.4 (13.0-17.5) gm/dL Hct 42.3 (39.0-53.0) % MCV 87.3 (80.0-100.0) fL MCH 29.8 (25.0-35.0) pg MCHC 34.1 (31.0-37.0) g/dL RDW 12.8 (11.5-15.5) % Plt Count 274 (150-450) k/uL MPV 6.6 Neutrophils % 70 % Lymphocytes % 19 % Monocytes % 5 % Eosinophils % 5 % Basophils % 1 % Neutrophils # 4.2 (1.3-7.7) k/uL Lymphocytes # 1.2 (1.0-4.8) k/uL Monocytes # 0.3 (0-1.0) k/uL Eosinophils # 0.3 (0-0.7) k/uL Basophils # 0.0 (0-0.2) k/uL PT 9.9 (9.0-12.0) sec INR 0.9 (<1.2) APTT 22.4 (22.0-30.0) sec D-Dimer 0.34 (<0.60) mg/L FEU Sodium 140 (137-145) mmol/L Potassium 4.3 (3.5-5.1) mmol/L Chloride 107 (98-107) mmol/L Carbon Dioxide 27 (22-30) mmol/L Anion Gap 6 mmol/L BUN 13 (9-20) mg/dL Creatinine 0.72 (0.66-1.25) mg/dL Est GFR (CKD-EPI)AfAm >90 (>60 ml/min/1.73 sqM) Est GFR (CKD-EPI)NonAf 85 (>60 ml/min/1.73 sqM) Glucose 140 H (74-99) mg/dL Plasma Lactic Acid Kev (0.7-2.0) mmol/L Calcium 9.3 (8.4-10.2) mg/dL Total Bilirubin 0.3 (0.2-1.3) mg/dL AST 25 (17-59) U/L ALT 20 (4-49) U/L Alkaline Phosphatase 71 (38-126) U/L Troponin I (0.000-0.034) ng/mL NT-Pro-B Natriuret Pep pg/mL Total Protein 6.2 L (6.3-8.2) g/dL Albumin 3.8 (3.5-5.0) g/dL 02/25/21 02/25/21 02/25/21 Range/Units 04:54 04:54 04:54 WBC (3.8-10.6) k/uL RBC (4.30-5.90) m/uL Hgb (13.0-17.5) gm/dL Hct (39.0-53.0) % MCV (80.0-100.0) fL MCH (25.0-35.0) pg MCHC (31.0-37.0) g/dL RDW (11.5-15.5) % Plt Count (150-450) k/uL MPV Neutrophils % % Lymphocytes % % Monocytes % % Eosinophils % % Basophils % % Neutrophils # (1.3-7.7) k/uL Lymphocytes # (1.0-4.8) k/uL Monocytes # (0-1.0) k/uL Eosinophils # (0-0.7) k/uL Basophils # (0-0.2) k/uL PT (9.0-12.0) sec INR (<1.2) APTT (22.0-30.0) sec D-Dimer (<0.60) mg/L FEU Sodium (137-145) mmol/L Potassium (3.5-5.1) mmol/L Chloride (98-107) mmol/L Carbon Dioxide (22-30) mmol/L Anion Gap mmol/L BUN (9-20) mg/dL Creatinine (0.66-1.25) mg/dL Est GFR (CKD-EPI)AfAm (>60 ml/min/1.73 sqM) Est GFR (CKD-EPI)NonAf (>60 ml/min/1.73 sqM) Glucose (74-99) mg/dL Plasma Lactic Acid Kev 1.2 (0.7-2.0) mmol/L Calcium (8.4-10.2) mg/dL Total Bilirubin (0.2-1.3) mg/dL AST (17-59) U/L ALT (4-49) U/L Alkaline Phosphatase (38-126) U/L Troponin I <0.012 (0.000-0.034) ng/mL NT-Pro-B Natriuret Pep 42 pg/mL Total Protein (6.3-8.2) g/dL Albumin (3.5-5.0) g/dL - EKG Data -: EKG Interpreted by Dc EKG shows normal: sinus rhythm (With occasional PVC), axis, intervals (Normal CO interval 240 ms, prolonged consistent with first-degree AV block. QRS duration 94 ms, QTC 418 ms, both normal), ST-T waves (Normal) Rate: normal (62 bpm) Interpretation: other (Possible old inferior infarct.) Disposition Clinical Impression: Dyspnea Disposition: HOME SELF-CARE Condition: Good Instructions (If sedation given, give patient instructions): Dyspnea (ED) Additional Instructions: Follow with the bridge operator slip as well as the favor maker to ensure that this does not represent angina. Is patient prescribed a controlled substance at d/c from ED?: No Referrals: Ricardo Ortega MD [Primary Care Provider] - 1-2 days Wade Adan MD [STAFF PHYSICIAN] - 1-2 days
--- NOTE | 2021-02-25 04:48 | XR ---
EXAMINATION TYPE: XR chest 2V DATE OF EXAM: 02/25/2021 COMPARISON: 10/06/2020 HISTORY: Difficulty breathing TECHNIQUE: FINDINGS: There is some patchy atelectasis at the lung bases. Heart size is normal. There are no vern r masses. There are chest leads. There is right shoulder surgery. IMPRESSION: Atelectasis at both lung bases is new compared to old exam. No heart failure.
[2021-02-25 05:16] LABS: Basophils % (A) 1 %; Eosinophils # (A) 0.3 k/uL (0-0.7); Eosinophils % (A) 5 %; HCT 42.3 % (39.0-53.0); HGB 14.4 gm/dL (13.0-17.5); Lymphocytes # (A) 1.2 k/uL (1.0-4.8); Lymphocytes % (A) 19 %; MCH 29.8 pg (25.0-35.0); MCHC 34.1 g/dL (31.0-37.0); MCV 87.3 fL (80.0-100.0); Mean Platelet Volume 6.6; Monocytes # (A) 0.3 k/uL (0-1.0); Monocytes % (A) 5 %; Neutrophils # (A) 4.2 k/uL (1.3-7.7); Neutrophils % (A) 70 %; Platelet Count 274 k/uL (150-450); RBC 4.85 m/uL (4.30-5.90); RDW 12.8 % (11.5-15.5)
[2021-02-25 05:34] LABS: D-Dimer 0.34 mg/L FEU (<0.60); INR 0.9 (<1.2); Partial Thromboplastin Time 22.4 sec (22.0-30.0); Prothrombin Time 9.9 sec (9.0-12.0)
[2021-02-25 05:44] LABS: ALT 20 U/L (4-49); AST 25 U/L (17-59); African American GFR (CKD) >90 (>60 ml/min/1.73 sqM); Albumin 3.8 g/dL (3.5-5.0); Alkaline Phosphatase 71 U/L (38-126); Anion Gap 6 mmol/L; Blood Urea Nitrogen 13 mg/dL (9-20); Calcium 9.3 mg/dL (8.4-10.2); Carbon Dioxide 27 mmol/L (22-30); Chloride 107 mmol/L (98-107); Glucose 140 mg/dL (74-99); Non-African American GFR(CKD) 85 (>60 ml/min/1.73 sqM); Potassium 4.3 mmol/L (3.5-5.1); Sodium 140 mmol/L (137-145); Total Bilirubin 0.3 mg/dL (0.2-1.3); Total Protein 6.2 g/dL (6.3-8.2)
[2021-02-25 06:27] VITALS: BP 137/79; RESP 16
== END 2021-02-25 06:27 | disposition home or self-care (01) ==
LOC: EC 03:29
DX: R06.02 Shortness of breath (principal); R05 Cough; I10 Essential (primary) hypertension; E78.5 Hyperlipidemia, unspecified; I48.91 Unspecified atrial fibrillation; Z87.891 Personal history of nicotine dependence
CPT/HCPCS: 36415; 71046; 80053; 83605; 83880; 84484; 85025; 85379; 85610; 85730; 93005; 99285

== ENCOUNTER 2021-10-28 20:07 | Emergency (ER) | payer MEDICARE, OTHER ==
[2021-10-28 20:25] VITALS: RESP 16; TEMP 98.1
[2021-10-28] MEDS ORDERED: HYDROmorphone 0.5 MG/0.5 ML SYRINGE IM STA (21:44)
[2021-10-28] MEDS ORDERED: KETOROLAC 15 MG/ML 1 ML VIAL IM STA (21:44)
--- NOTE | 2021-10-28 22:55 | CT ---
EXAMINATION TYPE: CT lumbar spine wo con DATE OF EXAM: 10/28/2021 COMPARISON: 05/05/2018 HISTORY: chronic back and hip pain CT DLP: 1297.6 mGycm Automated exposure control for dose reduction was used. Images obtained from the level of T12-S2 vertebra without contrast. The lumbar vertebrae have fairly normal alignment. There is moderate degenerative disc space narrowin g from L3 to S1. There is spurring of the endplates. There is no compression fracture. There is poste rior disc herniation and facet arthropathy with some spinal stenosis at L1 to. There are similar less severe stenosis at L2-3. There is moderate stenosis at L3-4. There is no significant stenosis at L4- 5 and L5-S1. There is no lumbar paraspinal mass. I see no focal bone destruction. The facet joints ar e intact. The sacroiliac joints are intact IMPRESSION: Multilevel spondylotic changes. Spinal stenosis at L2-3 and L3-4 which has progressed compared to old exam. No fracture seen. No focal bone destruction.
--- NOTE | 2021-10-28 23:28 | ED ---
Back Pain HPI - General Chief Complaint: Back Pain/Injury Stated Complaint: Back pain Time Seen by Provider: 10/28/21 20:56 Source: patient Limitations: no limitations - History of Present Illness Initial Comments: This patient is an 86-year-old man who presents to be evaluated for right lower back pain. He has been having intermittent symptoms like this one back months to years. The pain has flared up worse for the past few days. She denies any change in bladder or bowel function. No saddle anesthesia. MD Complaint: back pain -: month(s) Similar Symptoms Previously: Yes Place: home Radiation: right leg Severity: severe Quality: aching Consistency: constant Improves With: none Worsens With: none Associated Symptoms: denies other symptoms - Related Data Home Medications Medication Instructions Recorded Confirmed Fish Oil/Dha/Epa [Fish Oil 1,200 1 cap PO DAILY 05/05/18 05/05/18 mg Fish Oil] HYDROcodone/APAP 10-325MG [[place] 1 tab PO DAILY PRN 05/05/18 05/05/18 10-325] Multivitamins, Thera [Multivitamin 1 tab PO DAILY 05/05/18 05/05/18 (formulary)] Saw [place] 500 mg PO DAILY 05/05/18 05/05/18 Simvastatin [Zocor] 20 mg PO HS 05/05/18 05/05/18 Turmeric Root Extract [Turmeric] 500 mg PO DAILY 05/05/18 05/05/18 lisinopriL [Zestril] 5 mg PO HS 05/05/18 05/05/18 Previous Rx's Medication Instructions Recorded Pantoprazole [Protonix] 40 mg PO IRASEMA-BRITKFST #30 tablet. 05/07/18 SILVER sulfADIAZINE CREAM 1 applic TOPICAL DAILY applic 05/07/18 [Silvadene Cream] predniSONE See Taper PO DAILY #24 tab 05/07/18 Allergies Allergy/AdvReac Type Severity Reaction Status Date / Time No Known Allergies Allergy Verified 10/28/21 20:25 Review of Systems ROS Statement: Those systems with pertinent positive or pertinent negative responses have been documented in the HPI. ROS Other: All systems not noted in ROS Statement are negative. Constitutional: Denies: fever, chills, weakness Respiratory: Denies: cough, dyspnea Cardiovascular: Denies: chest pain, palpitations, edema Gastrointestinal: Denies: abdominal pain, nausea, vomiting, diarrhea, constipation Genitourinary: Denies: dysuria, hematuria Musculoskeletal: Reports: as per HPI, back pain Skin: Denies: rash Neurological: Denies: headache, weakness, numbness Past Medical History Past Medical History: Atrial Fibrillation, Eye Disorder, Hyperlipidemia, Hypertension History of Any Multi-Drug Resistant Organisms: None Reported Past Surgical History: Orthopedic Surgery Additional Past Surgical History / Comment(s): right rotator cuff, bilateral carpal tunnel Past Anesthesia/Blood Transfusion Reactions: No Reported Reaction Past Psychological History: No Psychological Hx Reported Smoking Status: Former smoker Past Alcohol Use History: Rare Past Drug Use History: None Reported General Exam Limitations: no limitations General appearance: alert, in no apparent distress Head exam: Present: atraumatic, normocephalic Eye exam: Present: normal appearance. Absent: scleral icterus, conjunctival injection Neck exam: Present: normal inspection Respiratory exam: Present: normal lung sounds bilaterally. Absent: respiratory distress, wheezes, rales, rhonchi, stridor Cardiovascular Exam: Present: regular rate, normal rhythm, normal heart sounds. Absent: systolic murmur, diastolic murmur, rubs, gallop GI/Abdominal exam: Present: soft. Absent: distended, tenderness, guarding, rebound, rigid, mass Extremities exam: Present: normal inspection, normal capillary refill. Absent: pedal edema, calf tenderness Back exam: Present: normal inspection, paraspinal tenderness. Absent: CVA tenderness (R), CVA tenderness (L), vertebral tenderness Neurological exam: Present: alert, reflexes normal. Absent: motor sensory deficit Skin exam: Present: warm, dry, intact, normal color. Absent: rash Course Vital Signs 10/28/21 10/29/21 20:22 00:01 Temperature 98.1 F Pulse Rate 75 80 Respiratory 16 16 Rate Blood Pressure 195/85 160/90 O2 Sat by Pulse 96 95 Oximetry Disposition Clinical Impression: Lumbar radiculopathy, Lumbar canal stenosis Disposition: HOME SELF-CARE Condition: Fair Instructions (If sedation given, give patient instructions): Lumbar Spinal Stenosis (ED) Is patient prescribed a controlled substance at d/c from ED?: No Referrals: Ricardo Ortega MD [Primary Care Provider] - 1-2 days Guille Rouse DO [Doctor of Osteopathic Medicine] - 1-2 days
[2021-10-29 00:03] VITALS: BP 160/90; PULSE 80
== END 2021-10-29 00:01 | disposition home or self-care (01) ==
LOC: EC 20:07
DX: M48.061 Spinal stenosis, lumbar region without neurogenic claudication (principal); M54.16 Radiculopathy, lumbar region; I10 Essential (primary) hypertension; I48.91 Unspecified atrial fibrillation; E78.5 Hyperlipidemia, unspecified; Z87.891 Personal history of nicotine dependence; Z79.52 Long term (current) use of systemic steroids; Z79.899 Other long term (current) drug therapy
CPT/HCPCS: 72131; 99283; 96372 ×2; J1885; J1170

== ENCOUNTER → 2022-01-27 | Outpatient (CLI) | payer MEDICARE, OTHER ==
[2022-01-27 12:34] LABS: INR 0.9 (<1.2); Partial Thromboplastin Time 23.3 sec (22.0-30.0); Prothrombin Time 10.4 sec (9.0-12.0)
[2022-01-27 18:14] LABS: HCT 45.5 % (39.6-50.0); HGB 14.8 g/dL (13.0-17.0); MCH 29.5 pg (27.0-32.0); MCHC 32.5 g/dL (32.0-37.0); MCV 90.8 fL (80.0-97.0); Mean Platelet Volume 10.2 fL (9.5-12.2); NRBC Per 100 WBC 0 /100 WBCS (0.0-0.0); Platelet Count 292 X 10*3/uL (140-440); RBC 5.01 X 10*6/uL (4.40-5.60); RDW 12.6 % (11.5-14.5)
[2022-01-27 18:20] LABS: African American GFR (CKD) 95.2 (60.0-200.0); Albumin 4.4 g/dL (3.8-4.9); Albumin/Globulin Ratio 1.81 (1.60-3.17); Anion Gap 10.1 mmol/L (10.00-18.00); BUN/Creat Ratio 11.97 Ratio (12.00-20.00); Blood Urea Nitrogen 9.2 mg/dL (9.0-27.0); Calcium 9.5 mg/dL (8.7-10.3); Carbon Dioxide 25.3 mmol/L (20.0-27.5); Globulin 2.4 g/dL (1.6-3.3); Non-African American GFR(CKD) 82.1 (60.0-200.0); Potassium 4.4 mmol/L (3.5-5.5); Total Bilirubin 0.4 mg/dL (0.30-1.20); Total Protein 6.9 g/dL (6.2-8.2)
[2022-01-27 20:37] LABS: Appearance,Urine Clear (Clear); Bilirubin,Urine Negative (Negative); Blood,Urine Negative (Negative); Color,Urine Yellow (Yellow); Ketones,Urine Negative (Negative); Nitrite,Urine Negative (Negative); PH, Urine 7.5 (5.0-8.0); Specific Gravity,Urine 1.009 (1.001-1.030); Urobilinogen,Urine 0.2 (0.2,1.0)
== END | disposition home or self-care (01) ==
LOC: LABPAT 10:55
PROVIDERS: ATTEND Orthopaedic Surgery
DX: Z01.818 Encounter for other preprocedural examination (principal); I44.0 Atrioventricular block, first degree
CPT/HCPCS: 80053; 81003; 85027; 85610; 85730; 87070; 93005

== ENCOUNTER 2022-02-08 07:39 | Inpatient (IN) | payer MEDICARE, OTHER ==
[~2022-02-08 07:39] MED LIST: ACETAMINOPHEN TAB 500 MG TAB PO PRN; DEXAMETHASONE SOD PHOSPHATE 4 MG/ML 1 ML VIAL IV ONE; GABAPENTIN 300 MG CAP PO PRN; LIDOCAINE 1% (10MG/ML) FOR IV START INTRADERMA PRN; MELOXICAM 7.5 MG TAB PO PRN; MIDAZOLAM 2 MG/2 ML VIAL IV PRN; ONDANSETRON 4 MG/2 ML VIAL IVP ONE; TRANEXAMIC ACID IN NACL,ISO-OS 1,000 MG in SALINE 1 100ML.BAG IVPB PRN
[2022-02-08] MEDS ORDERED: MIDAZOLAM 2 MG/2 ML VIAL ONE (09:05)
[2022-02-08] MEDS ORDERED: PROPOFOL 10 MG/ML 20 ML VIAL IV ONE (09:05)
[2022-02-08] MEDS ORDERED: TRANEXAMIC ACID IN NACL,ISO-OS 1,000 MG/100 ML BAG ONE (09:05)
[2022-02-08] MEDS ORDERED: HYDROmorphone (PF) 1 MG/ML ONE (09:05)
[2022-02-08] MEDS: LACTATED RINGERS 1,000 ML IV SCH (09:08)
[2022-02-08] MEDS ORDERED: ceFAZolin 1,000 MG in SODIUM CHLORIDE 0.9% 1,000 ML IRRIGATION ONE (09:10)
[2022-02-08] MEDS ORDERED: ROPIVACAINE 5 MG/ML 30 ML VIAL MISCELLANE ONE ×2 (09:13→10:14)
--- NOTE | 2022-02-08 10:17 | P.OP ---
Date of Procedure: 02/08/22 Preoperative Diagnosis: Severe osteoarthritis right hip Postoperative Diagnosis: Severe osteoarthritis right hip Procedure(s) Performed: Right total hip arthroplasty with a direct anterior approach Implants: [employer] Polarstem standard size 6 collar [employer] R3, 3 hole hemispherical acetabular shell, 54 mm [employer] Reflection 6.5 mm cancellus screw, 20 mm 2 [employer] R3, XLPE 20 acetabular liner [employer] Oxinium femoral head 36 m, +4 All components were press-fit. The articulation is Oxinium on polyethylene. Anesthesia: spinal Surgeon: Kt Patrick Branch Services Manager #1: Nas Hernandez Estimated Blood Loss (ml): 350 Pathology: other (Femoral head) Condition: stable Disposition: PACU Indications for Procedure: After failure of conservative treatment we discussed the surgical and nonsur gical treatment options at length. Patient wishes to proceed with a total hip arthroplasty with a direct anterior approach. Complications specific to this procedure were discussed at length, including but not limited to infection, leg length discrepancy, dislocation, nerve injury, and fracture. Covid-19 was also discussed at length with the patient, and they are aware of the current policies and procedures. The patient was given the option of delaying surgery, but they elect to proceed knowing these risks. Patient is aware of all these complications and informed consent was obtained Operative Findings: The operative findings are consistent with severe osteoarthritis of the right hip Description of Procedure: Patient was seen and evaluated in the preoperative area and the consent was reviewed. The operative site was marked with a skin marker. The patient was then brought to the operating room and given preoperative antibiotics intravenously. 1 g of Tranexamic acid was also given intravenously. A spinal anesthetic was administered by the anesthesia department. The patient was then placed on the Ulysses table with the bony prominences well-padded. The hip area was then prepped with a ChloraPrep solution and draped in the usual sterile fashion. A universal timeout was then performed, which confirmed the patient's name, surgical site, ALLERGIES, and procedure being performed on the consent. Next the incision site was located at 1 cm distal and 2 cm lateral to the anterior superior iliac spine. The skin and subcutaneous tissues were sharply incised. Incision was carefully dissected down to the fascia overlying the tensor fascia laura muscle. This fascia was then incised in line with the incision. Care was taken to stay laterally in order to avoid injuring the lateral femoral cutaneous nerve. Next, using blunt finger dissection, the tensor fascia laura muscle was dissected off its investing fascia. The muscle was then carefully retracted laterally with a cobra retractor over the lateral neck of the femur. Next, the circumflex vessels were identified and cauterized using the AquaMantis device. The anterior hip capsule was then exposed. The capsule was then opened and an inverted T fashion. Cobra retractors were then placed intracapsularly. The retractors were maintained intracapsular throughout the procedure. The proximal femur was then visualized. Fluoroscopic x-rays were then taken in order to evaluate the preoperative leg lengths. A small amount of traction was placed on the leg. The femoral neck was then osteotomized at the appropriate level above the lesser trochanter. A small wedge of bone was then removed from the remaining femoral head. Next, using a corkscrew the femoral head was removed from the acetabulum. On gross visual inspection, the femoral head had complete loss of articular cartilage and multiple periarticular osteophytes. The femoral head was then mellissa sured. Attention was then turned to the acetabulum. The acetabulum was exposed and any remaining labrum was excised. Sequential reaming of the acetabulum was performed using fluoroscopic guidance until there was a good bed of bleeding cancellus bone. When the appropriate size was reached, a trial was then placed. The position and fit of the trial was checked with fluoroscopy. The trial was then removed. Then, using fluoroscopic guidance, the final implant was impacted at 20 of anteversion and 40 of abduction, and fully seated in the acetabulum. 2 screws were then placed in the acetabulum. Again fluoroscopy was used to check position of the screws. Next, the liner was then impacted, with a 20 elevated liner located in the anterior superior quadrant. Component locking was confirmed. Attention was then directed to the femur. With the aid of the Ulysses table, the femur was externally rotated to approximately 130, extended, and adducted under the opposite leg. A side hook was then placed under the proximal femur, and the side hook elevator was used to elevate the proximal femur while releasing the capsule. Retractors were then placed. A capsular release was performed, as well as a release of the conjoined tendon, which afforded excellent visualization of the proximal femur. Next, a box osteotome was used to lateralize the proximal femur. A boat deckhand was then used to locate the femoral canal. Sequential broaching was then performed with appropriate size which afforded excellent fixation in the proximal femur. A trial was then placed with appropriate head and neck, and the hip was gently reduced with the aid of the Ulysses table. Fluoroscopy was then used to check position of the components, as well as to ensure equal leg lengths. The hip was then gently dislocated and the trials were then removed. Final implants were then impacted and the hip was again reduced. Final fluoroscopic x-rays confirmed that the components were in anatomic position, as well as equal leg lengths. The hip was also taken through range of motion, and found to be stable. The hip was then copiously irrigated with antibiotic solution with pulsatile lavage. The hip was then irrigated with Irrisept solution. The soft tissues were then injected with a ropivacaine solution. A second dose of 1 g of Tranexamic acid was also given intravenously. The fascia was then closed with 2-0 strata fix suture. The subcutaneous tissue was closed with 3-0 Vicryl. The subcuticular tissue was closed with 3-0 strata fix suture. The skin was then closed with Exofin skin glue. After the glue and dried, and Optifoam silver impregnated dressing was applied. The patient was then transferred to the recovery room in stable condition. The pediatric physical therapy assistant ETHAN Hanson was required due to the complexity of surgery, and the need for skilled bilingual sales assistant for positioning, draping, exposure, retraction, and closure of the wound.
[2022-02-08] MEDS: HYDROmorphone 0.5 MG/0.5 ML SYRINGE IVP PRN ×3 (10:58→12:40)
[2022-02-08] MEDS ORDERED: NALOXONE 0.4 MG/ML 1 ML VIAL IV PRN (11:02)
[2022-02-08] MEDS ORDERED: ONDANSETRON 4 MG/2 ML VIAL IVP PRN (11:03)
[2022-02-08] MEDS ORDERED: MAGNESIUM HYDROXIDE 2,400 MG/10 ML CUP PO PRN (11:03)
[2022-02-08] MEDS ORDERED: HYDROcodone/APAP 5-325MG 1 EACH TAB PO PRN (11:03)
[2022-02-08] MEDS ORDERED: HYDROcodone/APAP 7.5-325MG 1 EACH TAB PO PRN (11:03)
[2022-02-08] MEDS ORDERED: HYDROmorphone 0.5 MG/0.5 ML SYRINGE IVP PRN ×2 (11:03)
--- NOTE | 2022-02-08 11:51 | XR ---
EXAMINATION TYPE: XR Hip Limited RT DATE OF EXAM: 02/08/2022 COMPARISON: NONE INDICATION: Postoperative TECHNIQUE: AP view of the right hip FINDINGS: Status post right total hip arthroplasty. No gross hardware complication. Acute postoperative changes with surrounding soft tissue swelling and gas. IMPRESSION: As above.
--- NOTE | 2022-02-08 12:06 | XR ---
EXAMINATION TYPE: XR Hip Limited RT DATE OF EXAM: 02/08/2022 CLINICAL HISTORY: Right hip arthroplasty TECHNIQUE: OR fluoroscopy COMPARISON: None. FINDINGS: Fluoroscopic guidance was provided during the procedure. A total of 23 seconds of fluorosc opic time was utilized during the procedure and 3 spot images were acquired. IMPRESSION: As Above.
[2022-02-08] MEDS ORDERED: KETOROLAC 15 MG/ML 1 ML VIAL IVP ONE (12:30)
[2022-02-08] MEDS: MULTIVITAMINS, THERA 1 EACH TAB PO SCH (16:18)
--- NOTE | 2022-02-08 17:01 | FL ---
Fluoroscopy HISTORY: Anterior hip replacement 23 seconds fluoroscopy time supplied to the referring clinician. 3 intraoperative C-arm images docum ent the procedure. See dictated report from orthopedic surgery.
[2022-02-08] MEDS: SENNOSIDES-DOCUSATE SODIUM 1 EACH TAB PO SCH (19:58)
[2022-02-08] MEDS: SODIUM CHLORIDE 0.9% 1,000 ML IV SCH (20:02)
[2022-02-09] MEDS: HYDROcodone/APAP 10-325MG 1 EACH TAB PO PRN ×4 (00:07→19:17)
[2022-02-09] MEDS: SODIUM CHLORIDE 0.9% 1,000 ML IV SCH ×2 (06:29→20:36)
[2022-02-09] MEDS: LACTATED RINGERS 1,000 ML IV SCH (06:29)
--- NOTE | 2022-02-09 07:39 | P.DS ---
Providers Expected date of discharge: 02/09/22 Attending physician: Kt Patrick Consults: 02/08/22 11:03 Consult Physician Routine Consulting Provider: Ronaldo Finney Consult Reason/Comments: Postoperative medical management Do you want consulting provider notified?: Yes Primary care physician: Ricardo Ortega - Discharge Diagnosis(es) (1) Primary localized osteoarthritis of right hip Current Visit: Yes Status: Acute (2) Status post total replacement of right hip Current Visit: Yes Status: Acute Hospital Course: This is an 86-year-old Male with known history of degenerative arthritis of the Right hip. The patient presents for evaluation. After discussion and consideration patient elects to proceed with total hip arthroplasty with direct anterior approach. The patient is seen preoperatively by primary care physician and cleared for surgery. Patient is admitted to [facility] on 02/08/2022 for total hip arthroplasty with direct anterior approach. The procedure is performed without complication or sequelae. The patient is doing well postoperatively. Labs and vital signs are stable on day of discharge. On day of discharge patient's hip incision is healing well. There is minimal erythema. There is no drainage noted at this time. There is minimal soft tissue swelling to the hip and thigh. Patient has full foot and ankle motion without difficulty or pain. Neurovascular status to the lower extremity is intact. Patient is discharged to home in good condition. Please see med rec for accurate list of home medications. Patient Condition at Discharge: Good Plan - Discharge Summary Discharge Rx Participant: Yes New Discharge Prescriptions: New Celecoxib [CeleBREX] 200 mg PO DAILY PRN #30 cap PRN Reason: Pain Sennosides-Docusate Sodium [Senokot-S] 1 tab PO BID PRN #60 tablet PRN Reason: Constipation Aspirin 325 mg PO BID #60 tab HYDROcodone/APAP 10-325MG [[place] 10] 1 each PO Q6H PRN #28 tab PRN Reason: Pain Ondansetron [Zofran] 4 mg PO Q6HR PRN #30 tab PRN Reason: Nausea No Action Turmeric Root Extract [Turmeric] 500 mg PO DAILY HYDROcodone/APAP 10-325MG [[place] 10-325] 1 tab PO Q6HR PRN PRN Reason: Pain Cholecalciferol [Vitamin D3 (25 Mcg = 1000 Iu)] 50 mcg PO DAILY Aspirin 81 mg PO DAILY Prevagen Es 1 tab PO DAILY Atorvastatin [Lipitor] 10 mg PO DAILY amLODIPine [Norvasc] 2.5 mg PO DAILY Superbeta Prostate 1 tab PO DAILY Discharge Medication List HYDROcodone/APAP 10-325MG [[place] 10-325] 1 tab PO Q6HR PRN 05/05/18 [History] Turmeric Root Extract [Turmeric] 500 mg PO DAILY 05/05/18 [History] Aspirin 81 mg PO DAILY 02/07/22 [History] Atorvastatin [Lipitor] 10 mg PO DAILY 02/07/22 [History] Cholecalciferol [Vitamin D3 (25 Mcg = 1000 Iu)] 50 mcg PO DAILY 02/07/22 [History] Prevagen Es 1 tab PO DAILY 02/07/22 [History] Superbeta Prostate 1 tab PO DAILY 02/07/22 [History] amLODIPine [Norvasc] 2.5 mg PO DAILY 02/07/22 [History] Aspirin 325 mg PO BID #60 tab 02/08/22 [Rx] Celecoxib [CeleBREX] 200 mg PO DAILY PRN #30 cap 02/08/22 [Rx] HYDROcodone/APAP 10-325MG [[place] 10] 1 each PO Q6H PRN #28 tab 02/08/22 [Rx] Ondansetron [Zofran] 4 mg PO Q6HR PRN #30 tab 02/08/22 [Rx] Sennosides-Docusate Sodium [Senokot-S] 1 tab PO BID PRN #60 tablet 02/08/22 [Rx] Follow up Appointment(s)/Referral(s): Kt Patrick DO [Doctor of Osteopathic Medicine] - 2 Weeks Activity/Diet/Wound Care/Special Instructions: 1. Keep Optifoam dressing over the right hip intact over the next 7 days 2. Patient may shower with dressing intact over the surgical site of the right hip 3. Patient may shower without a dressing intact after 7 days if his incision site remains clean and dry 4. Weight-bear as tolerated on the right lower extremity with a walker 5. Take medications as prescribed 6. Any questions or concerns patient may contact [facility] at [phone] Discharge Disposition: HOME SELF-CARE
[2022-02-09] MEDS: ASPIRIN 325 MG TAB PO SCH ×2 (08:09→20:51)
[2022-02-09] MEDS: CHOLECALCIFEROL 25 MCG (1000 IU) TABLET PO SCH (08:09)
[2022-02-09] MEDS: MULTIVITAMINS, THERA 1 EACH TAB PO SCH (08:09)
[2022-02-09] MEDS: amLODIPine 2.5 MG TAB PO SCH (08:09)
[2022-02-09] MEDS: ATORVASTATIN 10 MG TAB PO SCH (08:09)
[2022-02-09 09:55] LABS: Basophils # (A) 0.02 X 10*3/uL (0.00-0.10); Basophils % (A) 0.1 %; Eosinophils # (A) 0.01 X 10*3/uL (0.04-0.35); Eosinophils % (A) 0.1 %; HCT 32.9 % (39.6-50.0); HGB 10.7 g/dL (13.0-17.0); Immature Grans, Automated 0.4 %; Lymphocytes # (A) 1.22 X 10*3/uL (0.90-5.00); Lymphocytes % (A) 8.7 %; MCH 29.3 pg (27.0-32.0); MCHC 32.5 g/dL (32.0-37.0); MCV 90.1 fL (80.0-97.0); Monocytes # (A) 1.42 X 10*3/uL (0.20-1.00); Monocytes % (A) 10.2 %; NRBC Per 100 WBC 0 /100 WBCS (0.0-0.0); Neutrophils # (A) 11.23 X 10*3/uL (1.80-7.70); Neutrophils % (A) 80.5 %; Platelet Count 277 X 10*3/uL (140-440); RBC 3.65 X 10*6/uL (4.40-5.60); RDW 12.6 % (11.5-14.5); WBC 13.96 X 10*3/uL (4.50-10.00)
[2022-02-09] MEDS ORDERED: diazePAM 5 MG TAB PO STA (13:41)
[2022-02-09] MEDS: HYDROmorphone 0.5 MG/0.5 ML SYRINGE IVP PRN ×2 (13:44→21:00)
--- NOTE | 2022-02-09 14:01 | P.CONS ---
History of Present Illness - Reason for Consult Consult date: 02/09/22 Medical management postop right hip arthroplasty - History of Present Illness This is a pleasant 86-year-old male who follows with Dr. Ricardo Ortega in the outpatient setting and was admitted under orthopedic services and underwent right hip arthroplasty with direct anterior approach. Patient has past medical history of severe osteoarthritis of the right hip and has failed previous conservative measures and elected to have procedure. Patient is postop day #1 and doing relatively well. Patient has past medical history of atrial fibrillation, I disorder, hyperlipidemia, hypertension, extremely hard of hearing. We were consulted for medical management and hypertension. Patient takes low-dose Norvasc 2.5 mg daily and recommend patient holding his blood pressures were mildly soft postoperatively. Discussed with the patient and son at the bedside about monitoring blood pressures daily and if blood pressure is low hold medications and notify provider. DVT and pain management prophylaxis per primary service. On exam patient denies any chest pain, shortness of breath, lightheadedness, dizziness, or palpitations. Patient is afebrile. Patient reports to passing gas and did have a bowel movement and denies any nausea or vomiting and tolerating diet. Incentive spirometer at the bedside and encourage the patient to keep using at least 10 times every hour while awake. Patient will have home care and rehab in the outpatient setting. Review Of Systems: Constitutional: No fever, no chills, no night sweats. No weight change. No weakness, fatigue or lethargy. No daytime sleepiness. EENT: No headache. No blurred vision or double vision, no loss of vision. No loss of Hearing, no ringing in the ears, no dizziness. No nasal drainage or congestion. No epistaxis. No sore throat. Lungs: No shortness of breath, cough, no sputum production. No wheezing. Cardiovascular: No chest pain, no lower extremity edema. No palpitations. No paroxysmal nocturnal dyspnea. No orthopnea. No lightheadedness or dizziness. No syncopal episodes. Abdominal: No abdominal pain. No nausea, vomiting. No diarrhea. No constipation. No bloody or tarry stools.. No loss of appetite. Genitourinary: No dysuria, increased frequency, urgency. No urinary retention. Musculoskeletal: No myalgias. No muscle weakness, no gait dysfunction, no frequent falls. No back pain. No neck pain. Integumentary: No wounds, no lesions. No rash or pruritus. No unusual bruising. No change in hair or nails. Neurologic: No aphasia. No facial droop. No change in mentation. No head injury. No headache. No paralysis. No paresthesia. Psychiatric: No depression. No anxiety. No mood swings. Endocrine: No abnormal blood sugars. No weight change. No excessive sweating or thirst. No cold intolerance. PHYSICAL EXAMINATION: GENERAL: The patient is alert and oriented x4, Well developed, well nourished. HEENT: Pupils are round and equally reacting to light. EOMI. no scleral icterus. No conjunctival pallor. Normocephalic, atraumatic. No pharyngeal erythema. No thyromegaly. CARDIOVASCULAR: S1 and S2 muffled PULMONARY: diminished breath sounds bilaterally with no wheezing or rhonchi noted. ABDOMEN: soft. Nontender on exam. obese. non-distended, normoactive bowel sounds. No palpable organomegaly. MUSCULOSKELETAL: No joint swelling or deformity. EXTREMITIES: No cyanosis, clubbing, or pedal edema. Right hip surgical dressing is intact NEUROLOGICAL: Gross neurological examination did not reveal any focal deficits. SKIN: No rashes. Assessment: Severe osteoarthritis of the right hip status post right hip total arthroplasty anterior approach postop day #1 History of chronic atrial fibrillation Mild leukocytosis, most likely reactive from surgery Hypertension Hyperlipidemia GI prophylaxis DVT prophylaxis Full code Plan: Recommend to continue with current medications and management per orthopedic services. Patient has been seen and evaluated by PT/OT therapy recommending home with home care and plan is for discharge today. Appropriate home medications resumed and recommend to continue monitoring blood pressures closely as blood pressure is been on the softer side and discussed with the patient and family member at the bedside about monitoring blood pressure daily and his systolic number is less than 120 to hold the Norvasc and notify provider. Patient tolerating diet with no reports of nausea or vomiting noted. Patient with some mildly elevated leukocytosis most likely reactive recommend following up with primary care provider at scheduled appointment and having repeat labs at that time. Recommend continue with incentive spirometer use at least 10 times every hour while awake and to continue with restrictions per orthopedics. DVT prophylaxis and pain management per orthopedic services. Will continue to follow with orthopedics during hospitalization. Thank you for this consultation. The impression and plan of care has been dictated by Yesy Tierney, nurse practitioner as directed. Dr. Isis MD I have performed a history and examination and MDM of this patient, discussed the same with the dictator, and agree with the dictator's assessment and plan as written ,documented as a scribe. Based on total visit time, I have performed more than 50% of the visit. Any additional findings or plans will be noted. Past Medical History Past Medical History: Atrial Fibrillation, Eye Disorder, Hyperlipidemia, Hypertension Additional Past Medical History / Comment(s): bubble in his left eye in the corner. Pt sees Dr Guy. mild left ankle edema History of Any Multi-Drug Resistant Organisms: None Reported Past Surgical History: Orthopedic Surgery Additional Past Surgical History / Comment(s): right rotator cuff, bilateral carpal tunnel. Cataract surgery Past Anesthesia/Blood Transfusion Reactions: No Reported Reaction Additional Past Anesthesia/Blood Transfusion Reaction / Comm: slow to wake up Past Psychological History: No Psychological Hx Reported Smoking Status: Former smoker Past Alcohol Use History: Rare Past Drug Use History: None Reported - Past Family History Father Family Medical History: No Reported History Mother Family Medical History: No Reported History Additional Family Medical History / Comment(s): lived 105yr Medications and Allergies Home Medications Medication Instructions Recorded Confirmed Type Turmeric Root Extract [Turmeric] 500 mg PO DAILY 05/05/18 02/07/22 History Atorvastatin [Lipitor] 10 mg PO DAILY 02/07/22 02/07/22 History Cholecalciferol [Vitamin D3 (25 50 mcg PO DAILY 02/07/22 02/07/22 History Mcg = 1000 Iu)] Prevagen Es 1 tab PO DAILY 02/07/22 02/07/22 History Superbeta Prostate 1 tab PO DAILY 02/07/22 02/07/22 History amLODIPine [Norvasc] 2.5 mg PO DAILY 02/07/22 02/08/22 History Aspirin 325 mg PO BID #60 tab 02/08/22 Rx Celecoxib [CeleBREX] 200 mg PO DAILY PRN #30 cap 02/08/22 Rx HYDROcodone/APAP 10-325MG [[place] 1 each PO Q6H PRN #28 tab 02/08/22 Rx 10] Ondansetron [Zofran] 4 mg PO Q6HR PRN #30 tab 02/08/22 Rx Sennosides-Docusate Sodium 1 tab PO BID PRN #60 tablet 02/08/22 Rx [Senokot-S] Allergies Allergy/AdvReac Type Severity Reaction Status Date / Time No Known Allergies Allergy Verified 02/08/22 07:59 Physical Exam Vitals: Vital Signs Temp Pulse Pulse Resp BP Pulse Ox 02/09/22 07:56 97.6 F 73 16 112/67 90 L 02/09/22 02:00 98.1 F 68 18 106/57 93 L 02/08/22 20:00 97.5 F L 92 18 94/54 95 02/08/22 17:00 99.0 F 106 H 16 108/64 92 L 02/08/22 15:34 120 H 16 155/78 99 02/08/22 15:00 110 H 22 148/59 99 02/08/22 14:00 96 16 136/72 93 L 02/08/22 13:01 86 16 119/64 96 02/08/22 12:31 58 L 16 147/65 94 L 02/08/22 12:16 60 18 127/73 94 L 02/08/22 12:01 68 130/62 94 L 02/08/22 11:46 61 18 135/66 95 02/08/22 11:31 65 16 160/68 94 L 02/08/22 11:15 55 L 16 126/70 94 L 02/08/22 10:48 97.9 F 83 16 134/63 98 Intake and Output 02/08/22 02/09/22 02/09/22 22:59 06:59 14:59 Output Total 150 Balance -150 Output: Urine 150 Other: # Voids 2 4 # Bowel Movements 1 Weight 82.554 kg Results CBC & Chem 7: 02/09/22 04:40
--- NOTE | 2022-02-09 14:35 | XR ---
EXAMINATION TYPE: XR Hip RT and AP Pelvis DATE OF EXAM: 02/09/2022 COMPARISON: Right hip x-ray from yesterday. HISTORY: Increased right hip pain. Right hip replacement one day earlier. TECHNIQUE: A single AP view of the pelvis is obtained. Two views of the right hip are obtained. FINDINGS: Metallic artifact from total right hip arthroplasty redemonstrated. Position stable and sat isfactory. No acute displaced fracture in the pelvis. Sacroiliac joints symmetric and within normal limits. Pubi c symphysis is intact. Outlet projection noted. Overlying soft tissue is unremarkable. IMPRESSION: There is no acute fracture or dislocation in the pelvis or right hip.
[2022-02-09] MEDS ORDERED: diazePAM 5 MG TAB PO PRN (16:38)
[2022-02-09] MEDS: SENNOSIDES-DOCUSATE SODIUM 1 EACH TAB PO SCH (20:51)
[2022-02-10] MEDS: HYDROcodone/APAP 10-325MG 1 EACH TAB PO PRN ×4 (01:46→22:16)
[2022-02-10] MEDS: HYDROmorphone 0.5 MG/0.5 ML SYRINGE IVP PRN ×3 (04:27→07:02)
[2022-02-10] MEDS: LACTATED RINGERS 1,000 ML IV SCH (05:37)
[2022-02-10] MEDS: CHOLECALCIFEROL 25 MCG (1000 IU) TABLET PO SCH (07:19)
[2022-02-10] MEDS: ASPIRIN 325 MG TAB PO SCH ×2 (07:20→22:16)
[2022-02-10] MEDS: amLODIPine 2.5 MG TAB PO SCH (07:20)
[2022-02-10] MEDS: ATORVASTATIN 10 MG TAB PO SCH (07:20)
--- NOTE | 2022-02-10 09:49 | P.PN ---
Subjective Progress Note Date: 02/10/22 Principal diagnosis: Status post right total hip arthroplasty This is an 86 year-old male post right total hip arthroplasty. This is post-op day 2. The patient was evaluated at the bedside today with family present. The patient has been confused and aggressive since receiving Valium yesterday. A family member states he had a similar reaction to bee pollen in the . The patient's states he is calming down a little since last night. He is cur rently sleeping after receiving Dilaudid and [place] 10 this morning. Objective - Vital Signs Vital signs: Vital Signs Temp 98.2 F 02/09/22 20:00 Pulse 100 02/09/22 20:00 Resp 24 02/10/22 07:21 BP 142/56 02/10/22 07:21 Pulse Ox 93 L 02/09/22 20:00 FiO2 Intake & Output 02/09/22 02/10/22 02/10/22 18:59 06:59 18:59 Output Total 100 Balance -100 Output: Urine 100 Other: Voiding Method Toilet Urinal # Voids 1 2 - Exam The patient does not appear in acute distress. Orientated x1 according to nurs ing staff. The patient is currently sleeping during exam. Dressing is clean dry and intact. Incision appears fine with no erythema or active drainage. Calf is soft.. Circulatory status is intact. - Labs CBC & Chem 7: 02/09/22 04:40 Labs: Abnormal Lab Results - Last 24 Hours (Table) 02/09/22 Range/Units 04:40 WBC 13.96 H (4.50-10.00) X 10*3/uL RBC 3.65 L (4.40-5.60) X 10*6/uL Hgb 10.7 L (13.0-17.0) g/dL Hct 32.9 L (39.6-50.0) % Immature Gran # 0.06 H (0.00-0.04) X 10*3/uL Neutrophils # 11.23 H (1.80-7.70) X 10*3/uL Monocytes # 1.42 H (0.20-1.00) X 10*3/uL Eosinophils # 0.01 L (0.04-0.35) X 10*3/uL Assessment and Plan (1) Primary localized osteoarthritis of right hip Current Visit: Yes Status: Acute Code(s): M16.11 - UNILATERAL PRIMARY OSTEOARTHRITIS, RIGHT HIP SNOMED Code(s): 838745146543096 (2) Status post total replacement of right hip Current Visit: Yes Status: Acute Code(s): Z96.641 - PRESENCE OF RIGHT ARTIFICIAL HIP JOINT SNOMED Code(s): 127450040255 Plan: 1. Continue pain control. Discontinued Valium. Continue [place] 10 and use Dil audid only if needed. 2. Anticoagulation with Aspirin 325 mg BID. 3. Continue physical therapy and ambulation. 4. Anticipate discharge home in the next 1-2 days depending on mental status.
[2022-02-10] MEDS ORDERED: QUEtiapine 25 MG TAB PO PRN (10:50)
[2022-02-10] MEDS: MULTIVITAMINS, THERA 1 EACH TAB PO SCH (11:02)
--- NOTE | 2022-02-10 15:17 | P.PN ---
Subjective Progress Note Date: 02/10/22 - Reason for Consult Consult date: 02/09/22 Medical management postop right hip arthroplasty - History of Present Illness This is a pleasant 86-year-old male who follows with Dr. Ricardo Ortega in the outpatient setting and was admitted under orthopedic services and underwent right hip arthroplasty with direct anterior approach. Patient has past medical history of severe osteoarthritis of the right hip and has failed previous conservative measures and elected to have procedure. Patient is postop day #1 and doing relatively well. Patient has past medical history of atrial fibrillation, I disorder, hyperlipidemia, hypertension, extremely hard of hearing. We were consulted for medical management and hypertension. Patient takes low-dose Norvasc 2.5 mg daily and recommend patient holding his blood pressures were mildly soft postoperatively. Discussed with the patient and son at the bedside about monitoring blood pressures daily and if blood pressure is low hold medications and notify provider. DVT and pain management prophylaxis per primary service. On exam patient denies any chest pain, shortness of breath, lightheadedness, dizziness, or palpitations. Patient is afebrile. Patient reports to passing gas and did have a bowel movement and denies any nausea or vomiting and tolerating diet. Incentive spirometer at the bedside and encourage the patient to keep using at least 10 times every hour while awake. Patient will have home care and rehab in the outpatient setting. 02/10/2022 Patient is seen in follow-up this morning and apparently patient became increasingly confused and agitated and aggressive with staff shortly after receiving Valium and discharge was held by orthopedics to monitor closely. Valium was discontinued and patient's mentation is back to baseline and recommend close observation overnight with possible discharge in 24 hours. Family was at the bedside and had to stay with the patient due to increasing anxiety and delirium. Patient is afebrile and denies any chest pain or shortness of breath. Patient is calm and cooperative and responding appropriately to questions and commands. Patient is alert and oriented 3. Patient tolerating diet with no reports of nausea or vomiting noted and is urinating with no difficulties. Patient reports to passing gas and did have a bowel movement yesterday. Review of systems: Constitutional: No reports of fatigue, fever, or chills Cardiovascular: No reports of chest pain or palpitations Respiratory: No reports of shortness of breath or cough GI: No reports of nausea, vomiting, or diarrhea : No reports of dysuria or retention Neurovascular: No reports of weakness , reports hip pain but manageable All medications have been reviewed PHYSICAL EXAMINATION: GENERAL: The patient is alert and oriented x3, Well developed, well nourished. HEENT: Pupils are round and equally reacting to light. EOMI. no scleral icterus. No conjunctival pallor. Normocephalic, atraumatic. No pharyngeal erythema. No thyromegaly. CARDIOVASCULAR: S1 and S2 muffled PULMONARY: diminished breath sounds bilaterally with no wheezing or rhonchi noted. ABDOMEN: soft. Nontender on exam. obese. non-distended, normoactive bowel sounds. No palpable organomegaly. MUSCULOSKELETAL: No joint swelling or deformity. EXTREMITIES: No cyanosis, clubbing, or pedal edema. Right hip surgical dressing is intact NEUROLOGICAL: Gross neurological examination did not reveal any focal deficits. SKIN: No rashes. Assessment: Severe osteoarthritis of the right hip status post right hip total arthroplasty anterior approach postop day #1 History of chronic atrial fibrillation Acute altered mental status, possible toxic encephalopathy secondary to Valium which was discontinued, mental status is improved and patient is alert and oriented 3 Mild leukocytosis, most likely reactive from surgery Hypertension Hyperlipidemia GI prophylaxis DVT prophylaxis Full code Plan: Recommend to continue with current medications and management per orthopedic services. Patient has been seen and evaluated by PT/OT therapy recommending home with home care and plan was for discharge yesterday although patient became increasingly agitated and confused after receiving Valium and discharge was held to monitor mentation. Appropriate home medications resumed and recommend to continue monitoring blood pressures closely as blood pressure is improved today and mildly elevated although patient with his confusion was not given any oral medications and discussed with nursing staff about giving Norvasc now and monitoring blood pressure overnight. Patient tolerating diet with no reports of nausea or vomiting noted. Patient with some mildly elevated leukocytosis most l ikely reactive recommend following up with primary care provider at scheduled appointment and having repeat labs at that time. Recommend continue with incentive spirometer use at least 10 times every hour while awake and to continue with restrictions per orthopedics. DVT prophylaxis and pain management per orthopedic services. Recommend avoiding IV pain medications and Valium has been discontinued. Will continue to follow with orthopedics during hospitalization. Pulse observation overnight with possible discharge in 24 hours. Thank you for this consultation. The impression and plan of care has been dictated by Yesy Tierney, nurse practitioner as directed. Dr. Isis MD I have performed a history and examination and MDM of this patient, discussed the same with the dictator, and agree with the dictator's assessment and plan as written ,documented as a scribe. Based on total visit time, I have performed more than 50% of the visit. Any additional findings or plans will be noted. Objective - Vital Signs Vital signs: Vital Signs Temp 98.2 F 02/09/22 20:00 Pulse 100 02/09/22 20:00 Resp 24 02/10/22 07:21 BP 142/56 02/10/22 07:21 Pulse Ox 93 L 02/09/22 20:00 FiO2 Intake & Output 02/09/22 02/10/22 02/10/22 18:59 06:59 18:59 Output Total 100 Balance -100 Output: Urine 100 Other: Voiding Method Toilet Urinal # Voids 1 2 - Labs CBC & Chem 7: 02/09/22 04:40
[2022-02-10] MEDS ORDERED: amLODIPine 2.5 MG TAB PO STA (15:41)
[2022-02-10] MEDS: SODIUM CHLORIDE 0.9% 1,000 ML IV SCH (15:42)
[2022-02-10] MEDS: SENNOSIDES-DOCUSATE SODIUM 1 EACH TAB PO SCH (22:16)
[2022-02-11] MEDS: HYDROcodone/APAP 10-325MG 1 EACH TAB PO PRN ×4 (03:39→21:17)
[2022-02-11] MEDS: LACTATED RINGERS 1,000 ML IV SCH (04:42)
[2022-02-11] MEDS: SODIUM CHLORIDE 0.9% 1,000 ML IV SCH (04:42)
[2022-02-11] MEDS: amLODIPine 2.5 MG TAB PO SCH (07:13)
[2022-02-11] MEDS: ASPIRIN 325 MG TAB PO SCH ×2 (07:13→19:56)
[2022-02-11] MEDS: ATORVASTATIN 10 MG TAB PO SCH (07:13)
[2022-02-11] MEDS: CHOLECALCIFEROL 25 MCG (1000 IU) TABLET PO SCH (07:13)
[2022-02-11 09:06] LABS: Basophils # (A) 0.03 X 10*3/uL (0.00-0.10); Basophils % (A) 0.3 %; Eosinophils # (A) 0.26 X 10*3/uL (0.04-0.35); Eosinophils % (A) 2.7 %; HCT 28.7 % (39.6-50.0); HGB 9.2 g/dL (13.0-17.0); Immature Grans, Automated 0.5 %; Lymphocytes # (A) 1.34 X 10*3/uL (0.90-5.00); Lymphocytes % (A) 13.7 %; MCHC 32.1 g/dL (32.0-37.0); MCV 90.5 fL (80.0-97.0); Mean Platelet Volume 9.8 fL (9.5-12.2); Monocytes % (A) 9.2 %; NRBC Per 100 WBC 0 /100 WBCS (0.0-0.0); Neutrophils # (A) 7.18 X 10*3/uL (1.80-7.70); Neutrophils % (A) 73.6 %; Platelet Count 227 X 10*3/uL (140-440); RBC 3.17 X 10*6/uL (4.40-5.60); RDW 12.5 % (11.5-14.5); WBC 9.76 X 10*3/uL (4.50-10.00)
--- NOTE | 2022-02-11 09:19 | P.PN ---
Subjective Progress Note Date: 02/11/22 Principal diagnosis: Status post right total hip arthroplasty This is an 86 year-old male post right total hip arthroplasty. This is post-op day 3. The patient was evaluated at the bedside today with family present. The patient's confusion has improved but last night he was confused and aggressive again. He pain is controlled on [place] 10 at this time. Objective - Vital Signs Vital signs: Vital Signs Temp 99.3 F 02/11/22 07:11 Pulse 90 02/11/22 07:11 Resp 16 02/11/22 07:11 BP 144/81 02/11/22 07:11 Pulse Ox 96 02/11/22 07:11 FiO2 Intake & Output 02/10/22 02/11/22 02/11/22 18:59 06:59 18:59 Other: Voiding Method Urinal # Voids 3 4 - Exam The patient does not appear in acute distress. Alert and orientated x3. Dressing is clean dry and intact. Incision appears fine with no erythema or active drainage. Calf is soft and nontender. Good foot and ankle motion without difficulty. Sensation and circulatory status is intact. - Labs CBC & Chem 7: 02/11/22 04:53 Labs: Abnormal Lab Results - Last 24 Hours (Table) 02/11/22 Range/Units 04:53 RBC 3.17 L (4.40-5.60) X 10*6/uL Hgb 9.2 L (13.0-17.0) g/dL Hct 28.7 L (39.6-50.0) % Immature Gran # 0.05 H (0.00-0.04) X 10*3/uL Assessment and Plan (1) Primary localized osteoarthritis of right hip Current Visit: Yes Status: Acute Code(s): M16.11 - UNILATERAL PRIMARY OSTEOARTHRITIS, RIGHT HIP SNOMED Code(s): 699030214893209 (2) Status post total replacement of right hip Current Visit: Yes Status: Acute Code(s): Z96.641 - PRESENCE OF RIGHT ARTIFICIAL HIP JOINT SNOMED Code(s): 639409316062 Plan: 1. Continue pain control. Continue [place] 10. 2. Anticoagulation with Aspirin 325 mg BID. 3. Continue physical therapy and ambulation. 4. Anticipate discharge home tomorrow depending on mental status overnight tonight.
[2022-02-11] MEDS: MULTIVITAMINS, THERA 1 EACH TAB PO SCH (10:51)
[2022-02-11] MEDS ORDERED: QUEtiapine 25 MG TAB PO SCH (18:00)
--- NOTE | 2022-02-11 18:45 | P.PN ---
Subjective Progress Note Date: 02/11/22 - Reason for Consult Consult date: 02/09/22 Medical management postop right hip arthroplasty - History of Present Illness This is a pleasant 86-year-old male who follows with Dr. Ricardo Ortega in the outpatient setting and was admitted under orthopedic services and underwent right hip arthroplasty with direct anterior approach. Patient has past medical history of severe osteoarthritis of the right hip and has failed previous conservative measures and elected to have procedure. Patient is postop day #1 and doing relatively well. Patient has past medical history of atrial fibrillation, I disorder, hyperlipidemia, hypertension, extremely hard of hearing. We were consulted for medical management and hypertension. Patient takes low-dose Norvasc 2.5 mg daily and recommend patient holding his blood pressures were mildly soft postoperatively. Discussed with the patient and son at the bedside about monitoring blood pressures daily and if blood pressure is low hold medications and notify provider. DVT and pain management prophylaxis per primary service. On exam patient denies any chest pain, shortness of breath, lightheadedness, dizziness, or palpitations. Patient is afebrile. Patient reports to passing gas and did have a bowel movement and denies any nausea or vomiting and tolerating diet. Incentive spirometer at the bedside and encourage the patient to keep using at least 10 times every hour while awake. Patient will have home care and rehab in the outpatient setting. 02/10/2022 Patient is seen in follow-up this morning and apparently patient became increasingly confused and agitated and aggressive with staff shortly after receiving Valium and discharge was held by orthopedics to monitor closely. Valium was discontinued and patient's mentation is back to baseline and recommend close observation overnight with possible discharge in 24 hours. Family was at the bedside and had to stay with the patient due to increasing anxiety and delirium. Patient is afebrile and denies any chest pain or shortness of breath. Patient is calm and cooperative and responding appropriately to questions and commands. Patient is alert and oriented 3. Patient tolerating diet with no reports of nausea or vomiting noted and is urinating with no difficulties. Patient reports to passing gas and did have a bowel movement yesterday. 02/11/2022 Patient evaluated today with family at the bedside. Patient had increased agitation and confusion last night again and appears to be sundowning or possible acute hospital acquired that is exacerbated during the evening. Patient has seroquel on board for this evening and will recommend and change the timing of the dose for 1800 and this was discussed with family and nursing staff at the bedside. Patient is alert and oriented x 3 during exam and also calm and cooperative. Patient continues with some discomfort of the right hip but no worse. Patient is working with physical therapy and will have family support at home. at the bedside and will be returning this evening to stay with the patient if needed. Patient denies chest pain and shortness of breath. Patient is afebrile. Patient is voiding with no difficulty. Patient had IV fluids and will discontinue. Review of systems: Constitutional: No reports of fatigue, fever, or chills Cardiovascular: No reports of chest pain or palpitations Respiratory: No reports of shortness of breath or cough GI: No reports of nausea, vomiting, or diarrhea : No reports of dysuria or retention Neurovascular: No reports of weakness , reports right hip pain but manageable All medications have been reviewed PHYSICAL EXAMINATION: GENERAL: The patient is alert and oriented x3, Well developed, well nourished. HEENT: Pupils are round and equally reacting to light. EOMI. no scleral icterus. No conjunctival pallor. Normocephalic, atraumatic. No pharyngeal erythema. No thyromegaly. CARDIOVASCULAR: S1 and S2 muffled PULMONARY: diminished breath sounds bilaterally with no wheezing or rhonchi noted. ABDOMEN: soft. Nontender on exam. obese. non-distended, normoactive bowel sounds. No palpable organomegaly. MUSCULOSKELETAL: No joint swelling or deformity. EXTREMITIES: No cyanosis, clubbing, or pedal edema. Right hip surgical dressing is intact NEUROLOGICAL: Gross neurological examination did not reveal any focal deficits. SKIN: No rashes. Assessment: Severe osteoarthritis of the right hip status post right hip total arthroplasty anterior approach postop day #3 History of chronic atrial fibrillation Acute altered mental status, possible toxic encephalopathy secondary to Valium which was discontinued, or possible component of hospital acquired delirium more prevalent in the evening. Mild leukocytosis, most likely reactive from surgery, improved Hypertension Hyperlipidemia GI prophylaxis DVT prophylaxis Full code Plan: Recommend to continue with current medications and management per orthopedic services. Patient has been followed by PT/OT therapy recommending home with home care. Patient tolerating diet with no reports of nausea or vomiting noted. WBC has normalized. Patient is afebrile. Recommend to continue with incentive spirometer use at least 10 times every hour while awake and to continue with restrictions per orthopedics. DVT prophylaxis and pain management per orthop edic services. Recommend avoiding IV pain medications and Valium has been discontinued. Encouraged Seroquel in the evening and will change to 1800 as patient is becoming increasingly confused and agitated in the evening. Appears to be sundowning or possible hospital acquired delirium. Strongly encouraged the family to stay with him tonight to assist with his acute delirium as he improves significantly each morning. Will monitor overnight and possible discharge by ortho in the am. Will continue to follow with orthopedics during hospitalization. Thank you for this consultation. The impression and plan of care has been dictated by Yesy Tierney, nurse practitioner as directed. Dr. Isis MD I have performed a history and examination and MDM of this patient, discussed the same with the dictator, and agree with the dictator's assessment and plan as written ,documented as a scribe. Based on total visit time, I have performed more than 50% of the visit. Any additional findings or plans will be noted. Objective - Vital Signs Vital signs: Vital Signs Temp 98.5 F 02/11/22 17:17 Pulse 85 02/11/22 17:17 Resp 18 02/11/22 17:17 BP 129/77 02/11/22 17:17 Pulse Ox 97 02/11/22 17:17 FiO2 Intake & Output 02/10/22 02/11/22 02/11/22 18:59 06:59 18:59 Other: Voiding Method Urinal # Voids 3 4 2 - Labs CBC & Chem 7: 02/11/22 04:53 Labs: Abnormal Lab Results - Last 24 Hours (Table) 02/11/22 Range/Units 04:53 RBC 3.17 L (4.40-5.60) X 10*6/uL Hgb 9.2 L (13.0-17.0) g/dL Hct 28.7 L (39.6-50.0) % Immature Gran # 0.05 H (0.00-0.04) X 10*3/uL
[2022-02-11] MEDS: SENNOSIDES-DOCUSATE SODIUM 1 EACH TAB PO SCH (19:56)
[2022-02-12] MEDS: HYDROcodone/APAP 10-325MG 1 EACH TAB PO PRN ×2 (04:16→11:09)
[2022-02-12] MEDS: CHOLECALCIFEROL 25 MCG (1000 IU) TABLET PO SCH (07:11)
[2022-02-12] MEDS: amLODIPine 2.5 MG TAB PO SCH (07:12)
[2022-02-12] MEDS: ATORVASTATIN 10 MG TAB PO SCH (07:12)
[2022-02-12] MEDS: ASPIRIN 325 MG TAB PO SCH (07:12)
[2022-02-12 07:56] VITALS: BP 161/71; PULSE 78; RESP 17; TEMP 97.6
--- NOTE | 2022-02-12 09:57 | P.DS ---
Providers Date of admission: 02/10/22 07:41 Expected date of discharge: 02/12/22 Attending physician: Kt Patrcik Consults: 02/08/22 11:03 Consult Physician Routine Consulting Provider: Ronaldo Finney Consult Reason/Comments: Postoperative medical management Do you want consulting provider notified?: Yes Primary care physician: Ricardo Ortega - Discharge Diagnosis(es) (1) Primary localized osteoarthritis of right hip Current Visit: Yes Status: Acute (2) Status post total replacement of right hip Current Visit: Yes Status: Acute Hospital Course: This is a 86-year-old male with known history of degenerative arthritis of the right hip. The patient presents for evaluation. After discussion and consideration patient elects to proceed with total hip arthroplasty. The patient is seen preoperatively by his primary care physician and cleared for surgery. Patient is admitted to [facility] on 02/08/2022 for right anterior total hip arthroplasty. The procedures performed without complication or sequelae. He did have an adverse reaction to Valium post op day 1. The patient's mental status as improved over the past 2 days. Labs and vital signs are stable on day of discharge. On day of discharge patient's hip incision is healing well. There is minimal erythema. There is no drainage noted at this time. There is minimal soft tissue swelling to the hip and thigh. Patient has full foot and ankle motion without difficulty or pain. Neurovascular status to the right lower extremity is intact. Patient is discharged to home in stable condition. Patient Condition at Discharge: Fair Plan - Discharge Summary Discharge Rx Participant: Yes New Discharge Prescriptions: New Celecoxib [CeleBREX] 200 mg PO DAILY PRN #30 cap PRN Reason: Pain Sennosides-Docusate Sodium [Senokot-S] 1 tab PO BID PRN #60 tablet PRN Reason: Constipation Aspirin 325 mg PO BID #60 tab HYDROcodone/APAP 10-325MG [[place] 10] 1 each PO Q6H PRN #28 tab PRN Reason: Pain Ondansetron [Zofran] 4 mg PO Q6HR PRN #30 tab PRN Reason: Nausea Continue Turmeric Root Extract [Turmeric] 500 mg PO DAILY Cholecalciferol [Vitamin D3 (25 Mcg = 1000 Iu)] 50 mcg PO DAILY Prevagen Es 1 tab PO DAILY Atorvastatin [Lipitor] 10 mg PO DAILY amLODIPine [Norvasc] 2.5 mg PO DAILY Superbeta Prostate 1 tab PO DAILY Discontinued HYDROcodone/APAP 10-325MG [[place] 10-325] 1 tab PO Q6HR PRN PRN Reason: Pain Aspirin 81 mg PO DAILY Discharge Medication List Turmeric Root Extract [Turmeric] 500 mg PO DAILY 05/05/18 [History] Atorvastatin [Lipitor] 10 mg PO DAILY 02/07/22 [History] Cholecalciferol [Vitamin D3 (25 Mcg = 1000 Iu)] 50 mcg PO DAILY 02/07/22 [History] Prevagen Es 1 tab PO DAILY 02/07/22 [History] Superbeta Prostate 1 tab PO DAILY 02/07/22 [History] amLODIPine [Norvasc] 2.5 mg PO DAILY 02/07/22 [History] Aspirin 325 mg PO BID #60 tab 02/08/22 [Rx] Celecoxib [CeleBREX] 200 mg PO DAILY PRN #30 cap 02/08/22 [Rx] HYDROcodone/APAP 10-325MG [[place] 10] 1 each PO Q6H PRN #28 tab 02/08/22 [Rx] Ondansetron [Zofran] 4 mg PO Q6HR PRN #30 tab 02/08/22 [Rx] Sennosides-Docusate Sodium [Senokot-S] 1 tab PO BID PRN #60 tablet 02/08/22 [Rx] Follow up Appointment(s)/Referral(s): Ricardo Ortega MD [Primary Care Provider] - 02/18/22 9:30 am [facility], [NON-STAFF] - As Needed ([facility] will call you to schedule your in home physical therapy.) Kt Patrick DO [Doctor of Osteopathic Medicine] - 02/25/22 10:15 am Ambulatory/Diagnostic Orders: Complete Blood Count w/diff [LAB.AMB] Time Frame: 3 Days, Location: None Selected Patient Instructions/Handouts: Total Hip Replacement (DC) Activity/Diet/Wound Care/Special Instructions: 1. Keep Optifoam dressing over the right hip intact over the next 7 days 2. Patient may shower with dressing intact over the surgical site of the right hip 3. Patient may shower without a dressing intact after 7 days if his incision site remains clean and dry 4. Weight-bear as tolerated on the right lower extremity with a walker 5. Take medications as prescribed 6. Any questions or concerns patient may contact [facility] at [phone] Discharge Disposition: HOME WITH HOME HEALTH SERVICES
--- NOTE | 2022-02-12 11:45 | P.PN ---
Subjective Progress Note Date: 02/12/22 This is a pleasant 86-year-old male who follows with Dr. Ricardo Ortega in the outpatient setting and was admitted under orthopedic services and underwent right hip arthroplasty with direct anterior approach. Patient has past medical history of severe osteoarthritis of the right hip and has failed previous conservative measures and elected to have procedure. Patient is postop day #1 and doing relatively well. Patient has past medical history of atrial fibrillation, I disorder, hyperlipidemia, hypertension, extremely hard of hearing. We were consulted for medical management and hypertension. Patient takes low-dose Norvasc 2.5 mg daily and recommend patient holding his blood pressures were mildly soft postoperatively. Discussed with the patient and son at the bedside about monitoring blood pressures daily and if blood pressure is low hold medications and notify provider. DVT and pain management prophylaxis per primary service. On exam patient denies any chest pain, shortness of breath, lightheadedness, dizziness, or palpitations. Patient is afebrile. Patient reports to passing gas and did have a bowel movement and denies any nausea or vomiting and tolerating diet. Incentive spirometer at the bedside and encourage the patient to keep using at least 10 times every hour while awake. Patient will have home care and rehab in the outpatient setting. 02/10/2022 Patient is seen in follow-up this morning and apparently patient became increasingly confused and agitated and aggressive with staff shortly after receiving Valium and discharge was held by orthopedics to monitor closely. Valium was discontinued and patient's mentation is back to baseline and recommend close observation overnight with possible discharge in 24 hours. Family was at the bedside and had to stay with the patient due to increasing anxiety and delirium. Patient is afebrile and denies any chest pain or shortness of breath. Patient is calm and cooperative and responding appropriately to questions and commands. Patient is alert and oriented 3. Patient tolerating diet with no reports of nausea or vomiting noted and is urinating with no difficulties. Patient reports to passing gas and did have a bowel movement yesterday. 02/11/2022 Patient evaluated today with family at the bedside. Patient had increased agitation and confusion last night again and appears to be sundowning or possible acute hospital acquired that is exacerbated during the evening. Patient has seroquel on board for this evening and will recommend and change the timing of the dose for 1800 and this was discussed with family and nursing staff at the bedside. Patient is alert and oriented x 3 during exam and also calm and cooperative. Patient continues with some discomfort of the right hip but no worse. Patient is working with physical therapy and will have family support at home. at the bedside and will be returning this evening to stay with the patient if needed. Patient denies chest pain and shortness of breath. Patient is afebrile. Patient is voiding with no difficulty. Patient had IV fluids and will discontinue. 02/12/2022 Patient evaluated today sitting up in the chair with at the bedside. Miko johnston is alert and oriented x 3, appropriate and is ready for discharge today. He had a good night rest and slept through the night after taking dose of seroquel last night. Will send an as needed script for seroquel to use at bedtime. A repeat CBC has been ordered recommended for 2-3 days outpatient. Patient will also follow up with his primary care Dr. Ricardo Ortega on February 18 at 9:30 AM an appointment has been scheduled. Patient will also see Dr. Patrick in the office on February 25 at 10:15 AM. Orthopedics has evaluated the patient and is cleared for discharge home with homecare and physical therapy today. He reports mild pain to the right hip, stable. Denies numbness or tingling. Blood pressure today 120/66 and patient will continue with norvasc on discharge. Currently denies chest pain, shortness of breath. He is afebrile. Voiding without difficulty. He has had a BM since surgery and will discharge on bowel regimine. Review of systems: Constitutional: No reports of fatigue, fever, or chills Cardiovascular: No reports of chest pain or palpitations Respiratory: No reports of shortness of breath or cough GI: No reports of nausea, vomiting, or diarrhea : No reports of dysuria or retention Neurovascular: No reports of weakness , reports right hip pain but manageable All medications have been reviewed PHYSICAL EXAMINATION: GENERAL: The patient is alert and oriented x3, Well developed, well nourished. HEENT: Pupils are round and equally reacting to light. EOMI. no scleral icterus. No conjunctival pallor. Normocephalic, atraumatic. No pharyngeal erythema. No thyromegaly. CARDIOVASCULAR: S1 and S2 muffled PULMONARY: diminished breath sounds bilaterally with no wheezing or rhonchi noted. ABDOMEN: soft. Nontender on exam. obese. non-distended, normoactive bowel sounds. No palpable organomegaly. MUSCULOSKELETAL: No joint swelling or deformity. EXTREMITIES: No cyanosis, clubbing, or pedal edema. Right hip surgical dressing is intact NEUROLOGICAL: Gross neurological examination did not reveal any focal deficits. SKIN: No rashes. Assessment: Severe osteoarthritis of the right hip status post right hip total arthroplasty anterior approach postop day #4 History of chronic atrial fibrillation Acute altered mental status, possible toxic encephalopathy secondary to Valium which was discontinued, or possible component of hospital acquired delirium more prevalent in the evening. Mild leukocytosis, most likely reactive from surgery, improved Hypertension Hyperlipidemia GI prophylaxis DVT prophylaxis Full code Plan: Recommend to continue with current medications and management per orthopedic services. Patient has been followed by PT/OT therapy recommending home with home care. Patient tolerating diet with no reports of nausea or vomiting noted. WBC has normalized. Patient is afebrile. Recommend to continue with incentive spirometer use at least 10 times every hour while awake and to continue with restrictions per orthopedics. DVT prophylaxis and pain management per orthopedic services. Recommend avoiding IV pain medications and Valium has been discontinued. Encouraged Seroquel in the evening and will change to 1800 as patient is becoming increasingly confused and agitated in the evening. Appears to be sundowning or possible hospital acquired delirium. Family has stayed with the patient and he also took a dose of seroquel and patient slept through the night and is alert x 3 this morning and is asking to return home. is christiano witt with discharge plan. Patient is hemodynamically stable. Will continue to follow with orthopedics during hospitalization. Thank you for this consultation. Patient is cleared medically for discharge. The impression and plan of care has been dictated by Nurse Yasmani Meza as directed. Dr. Isis MD I have performed a history and physical examination and medical decision making of this patient, discussed the same with the dictator, and agree with the dict ators assessment and plan as written, documented as a scribe. Based on total visit time, I have performed more than 50% of this visit. Objective - Vital Signs Vital signs: Vital Signs Temp 97.6 F 02/12/22 07:55 Pulse 78 02/12/22 07:55 Resp 17 02/12/22 07:55 BP 161/71 02/12/22 07:55 Pulse Ox 96 02/12/22 07:55 FiO2 Intake & Output 02/11/22 02/12/22 02/12/22 18:59 06:59 18:59 Output Total 100 Balance -100 Output: Urine 100 Other: Voiding Method Toilet # Voids 2 3 - Labs CBC & Chem 7: 02/11/22 04:53 Assessment and Plan Time with Patient: Less than 30
[2022-02-12] MEDS ORDERED: QUEtiapine 25 MG TAB PO SCH (21:00)
== END 2022-02-12 12:30 | disposition home health service (06) | DRG 982 ==
LOC: OR 07:39 → 4SSUR 10:48 → OR 02-10 01:41 → 4SSUR 02-10 07:41
PROVIDERS: ADMIT Orthopaedic Surgery; ATTEND Orthopaedic Surgery
PROC: 0SR906A Replacement of Right Hip Joint with Oxidized Zirconium on Polyethylene Synthetic Substitute, Uncemented, Open Approach (ICD-10-PCS; principal; 2022-02-08 09:05)
DX: G92.8 Other toxic encephalopathy (principal); I48.20 Chronic atrial fibrillation, unspecified; T84.84XA Pain due to internal orthopedic prosthetic devices, implants and grafts, initial encounter; M16.11 Unilateral primary osteoarthritis, right hip; D72.829 Elevated white blood cell count, unspecified; E78.5 Hyperlipidemia, unspecified; F41.9 Anxiety disorder, unspecified; H91.90 Unspecified hearing loss, unspecified ear; I10 Essential (primary) hypertension; Z79.1 Long term (current) use of non-steroidal anti-inflammatories (NSAID); Z79.82 Long term (current) use of aspirin; Z79.899 Other long term (current) drug therapy; Z87.891 Personal history of nicotine dependence; Z98.890 Other specified postprocedural states; Z88.8 Allergy status to other drugs, medicaments and biological substances; T42.4X5A Adverse effect of benzodiazepines, initial encounter
CPT/HCPCS: 73501; 73502; 85025; 86850; 86900; 86901; 88300

== ENCOUNTER → 2022-02-18 | Outpatient (CLI) | payer MEDICARE, OTHER ==
--- NOTE | 2022-02-18 11:56 | US ---
EXAMINATION TYPE: US venous doppler duplex LE DATE OF EXAM: 02/18/2022 11:43 AM COMPARISON: NONE CLINICAL HISTORY: R60.0 LOCALIZED EDEMA. Recent right hip replacement, right leg pain SIDE PERFORMED: Bilateral TECHNIQUE: The lower extremity deep venous system is examined utilizing real time linear array sonog carter with graded compression, doppler sonography and color-flow sonography. VESSELS IMAGED: Common Femoral Vein Deep Femoral Vein Greater Saphenous Vein * Femoral Vein Popliteal Vein Small Saphenous Vein * Proximal Calf Veins (* superficial vessels) Right Leg: Appears negative for DVT Left Leg: Appears negative for DVT IMPRESSION: No evidence for DVT
== END | disposition home or self-care (01) ==
LOC: RADUSWWP 11:08
PROVIDERS: ATTEND Family Medicine
DX: R60.0 Localized edema (principal)
CPT/HCPCS: 93970

== ENCOUNTER → 2022-12-21 | Outpatient (CLI) | payer MEDICARE, OTHER ==
--- NOTE | 2022-12-21 12:07 | FL ---
EXAMINATION TYPE: FL barium swallow w video DATE OF EXAM: 12/21/2022 MODIFIED SWALLOW / DEGLUTITION STUDY CLINICAL HISTORY: Dysphagia with solids and liquids for 3 months. TECHNIQUE: Deglutition study is performed utilizing thin liquid barium, nectar thick liquid barium, barium thick applesauce, and barium coated cracker. 1 minute 1 second of fluoro time and 0 images o btained. Total dose area product (DAP) in uGy*m?, mGy*cm? (or similar): n/a COMPARISON: None. FINDINGS: The oral and pharyngeal phases show satisfactory initiation and propagation with all modali ties tested. Normal mastication is seen with solid modalities tested. There is no evidence of penet ration or aspiration with any modality tested. No significant pharyngeal residue was appreciated. IMPRESSION: No penetration or aspiration observed. Please refer to speech therapist notes for furthe r details if necessary.
== END | disposition home or self-care (01) ==
LOC: RADFLMAIN 10:47
PROVIDERS: ATTEND Otolaryngology
DX: R13.13 Dysphagia, pharyngeal phase (principal)
CPT/HCPCS: 74230

== ENCOUNTER → 2022-12-22 | Outpatient (CLI) | payer MEDICARE, OTHER ==
--- NOTE | 2022-12-22 10:29 | FL ---
EXAMINATION TYPE: FL barium swallow DATE OF EXAM: 12/22/2022 CLINICAL INDICATION: 87-year-old male R13.13, dysphagia. Difficulty swallowing. Coughing. COMPARISON: None Total Fluoroscopy Time: 3 minutes 7 seconds Total DAP: 47.86 88 images obtained. FINDINGS: The swallowing mechanism is normal and hypopharyngeal anatomy is preserved. The cervical portion has a normal course, caliber, and motility. The thoracic portion shows normal motility. No fixed narrowing is identified. There is [id number] te tertiary peristalsis noted and prolonged pooling of contrast in the lower esophagus. Repeat swallo ws needed for clearance of contrast. The mucosa is normal and no persistent defect is encountered. There is a small hiatal hernia. Mild gastroesophageal reflux is demonstrated. IMPRESSION: 1. Mild to moderate esophageal dysmotility. Prolonged pooling of contrast in the lower esophagus with repeated swallows needed for clearance. No stricture identified. 2. Small hiatal hernia with mild gastroesophageal reflux.
== END | disposition home or self-care (01) ==
LOC: RADUSWWP 09:00
PROVIDERS: ATTEND Otolaryngology
DX: K21.9 Gastro-esophageal reflux disease without esophagitis (principal); K22.4 Dyskinesia of esophagus
CPT/HCPCS: 74220

== ENCOUNTER → 2022-12-26 | Outpatient (CLI) | payer MEDICARE, OTHER ==
--- NOTE | 2022-12-26 15:52 | CT ---
EXAMINATION TYPE: CT soft tissue neck wo con CT DLP: 492.7 mGycm, Automated exposure control for dose reduction was used. DATE OF EXAM: 12/26/2022 3:31 PM COMPARISON: CT brain C-spine 05/05/2018. CLINICAL INDICATION:Male, 87 years old with history of R13.13 DYSPHAGIA, PHARYNGEAL PHASE; PHH, dysph agia TECHNIQUE: Standard CT of the neck without administration of intravenous contrast. Axial sections wi th coronal and sagittal reformats were obtained. FINDINGS: Limited evaluation due to lack of intravenous contrast. Brain: Visualized portions are grossly unremarkable. Orbits: Bilateral aphakia. Sinuses: Left mastoid effusion. Suprahyoid Neck: The oropharynx, oral cavity, parapharyngeal and retropharyngeal spaces are clear and symmetric. The nasopharynx is unremarkable. Infrahyoid Neck: The larynx, hypopharynx, and supraglottic area are clear and symmetric. Parotid Glands: Unremarkable. Submandibular Glands: Unremarkable. Musculoskeletal: Degenerative disc disease changes of the visualized spine are present. No acute osse ous abnormality. Grade 1 anterolisthesis of C2 on C3 and C4 on C5.. No aggressive osseous lesion. Lymph noes: Multiple nonenlarged lymph nodes are seen along both anterior chains of the neck. Vascular structures: Mild atherosclerotic calcifications of the internal carotid arteries. Thoracic Inlet/airway: Airway is patent. The lung apices are clear. Cylindrical bronchiectasis identi fied bilaterally. Soft tissues/Thyroid: Posterior right thyroid hypodense nodule with macrocalcifications measuring up to 1.6 cm. Other: none. IMPRESSION: Limited evaluation due to lack of intravenous contrast. 1. No acute process. 2. Posterior right thyroid lobe hypodense nodule with macrocalcification measuring up to 1.6 cm. Dedi cated thyroid ultrasound is recommended.
== END | disposition home or self-care (01) ==
LOC: RADCTMAIN 15:14
PROVIDERS: ATTEND Otolaryngology
DX: E04.1 Nontoxic single thyroid nodule (principal); R13.13 Dysphagia, pharyngeal phase
CPT/HCPCS: 70490

== ENCOUNTER → 2023-02-06 | Outpatient (CLI) | payer MEDICARE, OTHER ==
--- NOTE | 2023-02-06 22:15 | US ---
EXAMINATION TYPE: US thyroid st tissue head/neck DATE OF EXAM: 02/06/2023 COMPARISON: CT: 12/26/22 CLINICAL INDICATION: Male, 87 years old with history of E04.1 THYROID NODULE; calcified nodule seen o n CT limitations due to body habitus GLAND SIZE: Right Lobe: 3.8 x 1.9 x 2.1 cm Overall Parenchyma: homogenous Left Lobe: 3.6 x 1.8 x 2.0 cm Overall Parenchyma: homogeneous Isthmus Thickness: 0.4 cm NODULES RIGHT: # of nodules measured on right: 1 1. 1.7 X 1.3 x 1.2 cm, mid mid, TIRADS Score: 6 TIRADS Category 4: Moderately Suspicious Composition: Solid or almost completely solid (2 points). Echogenicity: Hypoechoic (2 points). Shape: Wider than tall (0 points). Margin: Smooth (0 points). Echogenic foci: Peripheral (rim) calcifications (2 points) Recommendation: If >1.5cm: FNA; If >1cm: Follow up at 1,2, 3,5 years LEFT: # of nodules measured on left: 0 ISTHMUS: # of nodules measured in the isthmus: 0 Bilateral neck scanned, no evidence of lymphadenopathy. IMPRESSION: Right thyroid gland nodule with peripheral calcification which meets criteria for FNA, which may be d ifficult given peripheral calcification.
== END | disposition home or self-care (01) ==
LOC: RADUSWWP 16:55
PROVIDERS: ATTEND Otolaryngology
DX: E04.1 Nontoxic single thyroid nodule (principal)
CPT/HCPCS: 76536

== ENCOUNTER 2023-03-17 11:33 | Day surgery (SDC) | payer MEDICARE, OTHER ==
[2023-03-17 13:45] VITALS: BP 165/76; PULSE 57; RESP 18; TEMP 97.7
--- NOTE | 2023-03-17 14:01 | US ---
ULTRASOUND GUIDED FNA THYROID BIOPSY: CLINICAL HISTORY: Right thyroid calcified nodule FINDINGS: Limited imaging demonstrated the nodule in the external calcified rim. Calcification also shadowed ou t the nodule. The nodule was not able to be accessed for percutaneous biopsy. IMPRESSION: 1. The third ultrasound guided FNA thyroid biopsy.
== END 2023-03-17 14:00 | disposition home or self-care (01) ==
LOC: RADPROMAIN 11:33
PROVIDERS: ATTEND Otolaryngology
DX: Z53.8 Procedure and treatment not carried out for other reasons (principal); E04.1 Nontoxic single thyroid nodule
CPT/HCPCS: 76536

== ENCOUNTER → 2023-04-05 | Outpatient (CLI) | payer MEDICARE, OTHER ==
[2023-04-05 17:22] LABS: T4, Free (Free Thyroxine) 1.47 ng/dL (0.80-1.80)
== END | disposition home or self-care (01) ==
LOC: LABWHC1 10:35
PROVIDERS: ATTEND Otolaryngology
DX: E04.1 Nontoxic single thyroid nodule (principal)
CPT/HCPCS: 36415; 84439; 84443

== ENCOUNTER → 2023-09-12 | Outpatient (CLI) | payer MEDICARE, OTHER ==
--- NOTE | 2023-09-13 09:39 | US ---
EXAMINATION TYPE: US thyroid st tissue head/neck DATE OF EXAM: 09/12/2023 COMPARISON: 02/06/2023 CLINICAL INDICATION: Male, 88 years old with history of E04.1 SINGLE THYROID NODULE; Right thyroid no dule Parquetry Floor Layer notes: Difficult to scan, thyroid low in neck, large neck GLAND SIZE: Right Lobe: 3.2 x 1.5 x 1.7 cm Overall Parenchyma: heterogenous Left Lobe: 3.4 x 1.4 x 1.1 cm Overall Parenchyma: heterogenous Isthmus Thickness: 0.3 cm NODULES RIGHT: # of nodules measured on right: 1 1. 1.4 X 0.6 x 0.8 cm, mid, Calcified, nodule, which is wider than tall Prior size: 1.7 x 1.3 x 1.2 cm LEFT: # of nodules measured on left: 0 ISTHMUS: # of nodules measured in the isthmus: 0 Bilateral neck scanned, no evidence of lymphadenopathy. Calcified nodule right lobe, smaller in size when compared to prior. IMPRESSION: Decreasing size of the calcified nodule in the right lobe currently 1.4 cm versus 1.7 cm, previously. Overall small size of the thyroid gland. Query any underlying hypothyroidism.
== END | disposition home or self-care (01) ==
LOC: RADUSWWP 15:35
PROVIDERS: ATTEND Otolaryngology
DX: E04.1 Nontoxic single thyroid nodule (principal)
CPT/HCPCS: 76536

== ENCOUNTER → 2023-11-13 | Outpatient (CLI) | payer MEDICARE, OTHER ==
--- NOTE | 2023-11-13 16:56 | US ---
EXAMINATION TYPE: US thyroid st tissue head/neck DATE OF EXAM: 11/13/2023 COMPARISON: Cancel FNA 03/17/2023, 09/12/2023. CLINICAL INDICATION: Male, 88 years old with history of E04.1 NONTOXIC SINGLE THYROID NODULE; Nodule. GLAND SIZE: Right Lobe: 4.4 x 2.0 x 2.3 cm Overall Parenchyma: heterogenous Left Lobe: 4.5 x 1.5 x 1.6 cm Overall Parenchyma: heterogenous. *Extremely limited visibility of left lobe Isthmus Thickness: Unable to visualize Exam is extremely limited due to thyroid low in neck, large neck NODULES RIGHT: # of nodules measured on right: 1 1. 1.6 X 1.0 x 0.9 cm, mid mid, solid or almost completely solid, hyperechoic nodule, which is wide r than tall, with ill-defined margins, without echogenic foci. Prior size: 1.4 x 0.6 x 0.8 cm TIRADS Score: 4 TIRADS Category 4: Composition: Solid or almost completely solid (2 points). Echogenicity: Hypoechoic (2 points). Shape: Wider than tall (0 points). Margin: Smooth (0 points). Echogenic foci: None or large comet-tail artifacts (0 points) Nodule appears calcified. LEFT: # of nodules measured on left: 0 ISTHMUS: # of nodules measured in the isthmus: 0, unable to visualize isthmus Bilateral neck scanned, no evidence of lymphadenopathy. IMPRESSION: 1. Heterogenous thyroid gland correlate for thyroiditis. 2. Similar size of the right neck thyroid nodule which is calcified. Continued attention on surveill ance imaging. 3. 4.
== END | disposition home or self-care (01) ==
LOC: RADUSWWP 14:23
PROVIDERS: ATTEND Family Medicine
DX: E04.1 Nontoxic single thyroid nodule (principal); E06.9 Thyroiditis, unspecified
CPT/HCPCS: 76536

== ENCOUNTER 2024-05-15 14:38 | Emergency (ER) | payer MEDICARE, OTHER ==
[2024-05-15 14:50] VITALS: TEMP 98.3
--- NOTE | 2024-05-15 16:35 | ED ---
Chest Pain HPI - General Source: patient, family, RN notes reviewed Mode of arrival: ambulatory Limitations: no limitations <Papito Ivan - Last Filed: 05/15/24 16:34> - General Source: patient, family, RN notes reviewed, old records reviewed Mode of arrival: ambulatory Limitations: no limitations - History of Present Illness MD Complaint: chest pain -: month(s) Onset: during rest, during exertion Pain Location: substernal Pain Radiation: none Severity: moderate Severity scale (1-10): 4 Quality: sharp Consistency: intermittent Improves With: nothing <Irving Cotton - Last Filed: 05/27/24 15:51> - General Chief Complaint: Chest Pain Stated Complaint: chest pain Time Seen by Provider: 05/15/24 16:34 - History of Present Illness Initial Comments: Quick note: 88-year-old male presented to ER with a chief complaint chest discomfort. Patient states he is having intermittent chest discomfort for the past 6 months. He states it has been worse over the past couple of days. He reports it is centralized chest discomfort to radiation to the left side and down his arm. reports he has a history of an irregular heart rhythm. Not A-fib. Patient denies any shortness of breath. reports he has been feeling dizzy and lightheaded. (Papito Ivan) This is an 88-year-old male to ER for evaluation of chest pain today 6 months of episodic chest pain but worse over the last few days central chest pain with concern for irregular heart rhythm (Irving Cotton) - Related Data Home Medications Medication Instructions Recorded Confirmed amLODIPine [Norvasc] 5 mg PO DAILY 02/07/22 05/15/24 Atorvastatin [Lipitor] 10 mg PO DAILY 05/15/24 05/15/24 Dutasteride 0.5 mg PO DAILY 05/15/24 05/15/24 HYDROcodone/APAP 10-325MG [[place] 1 tab PO Q6H PRN 05/15/24 05/15/24 10] Prevagen 1 tab PO DAILY 05/15/24 05/15/24 Tamsulosin [Flomax] 0.4 mg PO DAILY 05/15/24 05/15/24 traZODone HCL [Desyrel] 50 mg PO HS 09/18/24 09/18/24 Allergies Allergy/AdvReac Type Severity Reaction Status Date / Time diazepam [From Valium] AdvReac Confusion, Verified 05/15/24 17:26 agression Review of Systems ROS Other: All systems not noted in ROS Statement are negative. <Papito Ivan - Last Filed: 05/15/24 16:34> ROS Other: All systems not noted in ROS Statement are negative. <Irving Cotton - Last Filed: 05/27/24 15:51> ROS Statement: Those systems with pertinent positive or pertinent negative responses have been documented in the HPI. EKG Findings - EKG Comments: EKG Findings:: EKG sinus 65 DC 220 QRS 108 QTc 407 - EKG Results: EKG: interpreted by ERMD <Irving Cotton - Last Filed: 05/27/24 15:51> Past Medical History Past Medical History: Atrial Fibrillation, Eye Disorder, Hyperlipidemia, Hypertension Additional Past Medical History / Comment(s): bubble in his left eye in the corner. Pt sees Dr Guy. mild left ankle edema History of Any Multi-Drug Resistant Organisms: None Reported Past Surgical History: Orthopedic Surgery Additional Past Surgical History / Comment(s): right rotator cuff, bilateral carpal tunnel. Cataract surgery, hip replacement Past Anesthesia/Blood Transfusion Reactions: No Reported Reaction Additional Past Anesthesia/Blood Transfusion Reaction / Comment(s): slow to wake up Past Psychological History: No Psychological Hx Reported Smoking Status: Never smoker Past Alcohol Use History: Rare Past Drug Use History: None Reported - Past Family History Father Family Medical History: No Reported History Mother Family Medical History: No Reported History Additional Family Medical History / Comment(s): lived 105yr <Papito Ivan - Last Filed: 05/15/24 16:34> General Exam Limitations: no limitations <Papito Ivan - Last Filed: 05/15/24 16:34> General appearance: alert, in no apparent distress Head exam: Present: atraumatic, normocephalic, normal inspection Eye exam: Present: normal appearance, PERRL, EOMI. Absent: scleral icterus, conjunctival injection, periorbital swelling ENT exam: Present: normal exam, mucous membranes moist Neck exam: Present: normal inspection. Absent: tenderness, meningismus, lymphadenopathy Respiratory exam: Present: normal lung sounds bilaterally. Absent: respiratory distress, wheezes, rales, rhonchi, stridor Cardiovascular Exam: Present: regular rate, normal rhythm, normal heart sounds. Absent: systolic murmur, diastolic murmur, rubs, gallop, clicks GI/Abdominal exam: Present: soft, normal bowel sounds. Absent: distended, tenderness, guarding, rebound, rigid Extremities exam: Present: normal inspection, full ROM, normal capillary refill. Absent: tenderness, pedal edema, joint swelling, calf tenderness Back exam: Present: normal inspection Neurological exam: Present: alert, oriented X3, CN II-XII intact Psychiatric exam: Present: normal affect, normal mood Skin exam: Present: warm, dry, intact, normal color. Absent: rash <Irving Cotton - Last Filed: 05/27/24 15:51> - General Exam Comments Initial Comments: Visual Physical Exam Vital signs reviewed General: Well-appearing, nontoxic, no acute distress. Head: Normocephalic, atraumatic Eyes: PERRLA, EOMI ENT: Airway patent Chest: Nonlabored breathing Skin: No visual rash, normal skin tone Neuro: Alert and oriented 3 Musculoskeletal: No gross abnormalities (Papito Ivan) Course <Irving Cotton - Last Filed: 05/27/24 15:51> Vital Signs 05/15/24 05/15/24 14:47 18:12 Temperature 98.3 F Pulse Rate 61 58 L Respiratory 18 19 Rate Blood Pressure 179/68 166/92 O2 Sat by Pulse 95 95 Oximetry - Reevaluation(s) Reevaluation #1: Medical records reviewed (Irving Cotton) Reevaluation #2: Patient symptoms unchanged (Irving Cotton) Reevaluation #3: Patient informed of results and questions answered (Irving Cotton) Reevaluation #4: Was pt. sent in by a medical professional or institution (, PA, FOOD SERVICE HELPER, urgent care, hospital, or intermediate...) When possible be specific @ -no Did you speak to anyone other than the patient for history (EMS, parent, family, police, friend...)? What history was obtained from this source @ -no Did you review nursing and triage notes (agree or disagree)? Why? @ -agree Are old charts reviewed (outside hosp., previous admission, EMS record, old EKG, old radiological studies, urgent care reports/EKG's, intermediate records)? Report findings @ -yes Differential Diagnosis (chest pain, altered mental status, abdominal pain women, abdominal pain men, vaginal bleeding, weakness, fever, dyspnea, syncope, headache, dizziness, GI bleed, back pain, seizure, CVA, palpatations, mental health, musculoskeletal)? @ -prior EKG interpreted by me (3pts min.). @ -yes X-rays interpreted by me (1pt min.). @ -yes negative for acute disease CT interpreted by me (1pt min.). @ -no U/S interpreted by me (1pt. min.). @ -no What testing was considered but not performed or refused? (CT, X-rays, U/S, labs)? Why? @ -none What meds were considered but not given or refused? Why? @ -none Did you discuss the management of the patient with other professionals (professionals i.e. , PA, FOOD SERVICE HELPER, lab, RT, psych nurse, social media executive, levelman, teacher, armed security officer, director of casework services)? Give summary @ -no Was smoking cessation discussed for >3mins.? @ -no Was critical care preformed (if so, how long)? @ -no Were there social determinants of health that impacted care today? How? (Homelessness, low income, unemployed, alcoholism, drug addiction, transportation, low edu. Level, literacy, decrease access to med. care, longterm, rehab)? @ -none Was there de-escalation of care discussed even if they declined (Discuss DNR or withdrawal of care, Hospice)? DNR status @ -no What co-morbidities impacted this encounter? (DM, HTN, Smoking, COPD, CAD, Cancer, CVA, ARF, Chemo, Hep., AIDS, mental health diagnosis, sleep apnea, morbid obesity)? @ -none Was patient admitted / discharged? Hospital course, mention meds given and route, prescriptions, significant lab abnormalities, going to OR and other pertinent info. @ - 88-year-old male to ER with chest pain nonspecific chest pain found here in the ER nontypical chest pain patient has no acute findings and can be discharged home Discharge Undiagnosed new problem with uncertain prognosis? @ -no Drug Therapy requiring intensive monitoring for toxicity (Heparin, Nitro, Insulin, Cardizem)? @ -no Were any procedures done? @ -no Diagnosis/symptom? @ -Chest pain Acute, or Chronic, or Acute on Chronic? @ -Acute Uncomplicated (without systemic symptoms) or Complicated (systemic symptoms)? @ -Complicated Side effects of treatment? @ -no Exacerbation, Progression, or Severe Exacerbation? @ -exacerbation Poses a threat to life or bodily function? How? (Chest pain, [place], [place], pneumonia, PE, COPD, DKA, ARF, appy, cholecystitis, CVA, Diverticulitis, Homicidal, Suicidal, threat to staff... and all critical care pts) @ -yes extremes of age (Irving Cotton) Reevaluation #5: Differential Chest Pain: Stable Angina, Unstable Angina, STEMI, NSTEMI Aortic Dissection, Pneumothorax, M usculoskeletal, Esophageal Spasm GERD, Cholecystitis, Pancreatitis, Zoster, this is not meant to be an all-inclusive list. (Irving Cotton) Chest Pain MDM <Papito Ivan - Last Filed: 05/15/24 16:34> <Irving Cotton - Last Filed: 05/27/24 15:51> - MDM I performed the quick note portion of this chart. Electronically signed by Papito Ivan PA-C (Papito Ivan) 88-year-old male to ER with chest pain nonspecific chest pain found here in the ER nontypical chest pain patient has no acute findings and can be discharged home (Irving Cotton) Disposition <Papito Ivan - Last Filed: 05/15/24 16:34> Is patient prescribed a controlled substance at d/c from ED?: No Time of Disposition: 17:40 <Irving Cotton - Last Filed: 05/27/24 15:51> Clinical Impression: Atypical chest pain, Chest pain Disposition: HOME SELF-CARE Condition: Good Instructions (If sedation given, give patient instructions): Chest Pain (ED) Referrals: Ricardo Ortega MD [Primary Care Provider] - 1-2 days
[2024-05-15 17:00] LABS: Basophils % (A) 0 %; Eosinophils # (A) 0.1 k/uL (0-0.7); Eosinophils % (A) 2 %; HCT 44.7 % (39.0-53.0); HGB 14.4 gm/dL (13.0-17.5); Lymphocytes # (A) 1.2 k/uL (1.0-4.8); Lymphocytes % (A) 18 %; MCH 29.2 pg (25.0-35.0); MCHC 32.2 g/dL (31.0-37.0); MCV 90.7 fL (80.0-100.0); Mean Platelet Volume 7.4; Monocytes # (A) 0.3 k/uL (0-1.0); Monocytes % (A) 4 %; Neutrophils # (A) 4.9 k/uL (1.3-7.7); Neutrophils % (A) 74 %; Platelet Count 289 k/uL (150-450); RBC 4.92 m/uL (4.30-5.90); RDW 12.9 % (11.5-15.5); WBC 6.6 k/uL (3.8-10.6)
--- NOTE | 2024-05-15 17:01 | XR ---
EXAMINATION TYPE: XR chest 2V DATE OF EXAM: 05/15/2024 COMPARISON: 02/25/2021 INDICATION: Chest pain TECHNIQUE: Frontal and lateral views of the chest are obtained. FINDINGS: The heart size is normal. The pulmonary vasculature is normal. There may be some minimal atelectasis at the left base. Lungs otherwise appear clear. No suspicious c onsolidations are evident. Small focal eventrations in the posterior lung IMPRESSION: 1. Minimal left basilar atelectasis. [facility], , 05/15/2024 4:58 PM
[2024-05-15 17:08] LABS: ALT 14 U/L (4-49); AST 24 U/L (17-59); African American GFR (CKD) >90 (>60 ml/min/1.73 sqM); Alkaline Phosphatase 59 U/L (38-126); Anion Gap 6 mmol/L; Blood Urea Nitrogen 14 mg/dL (9-20); Carbon Dioxide 26 mmol/L (22-30); Chloride 105 mmol/L (98-107); Glucose 150 mg/dL (74-99); INR 0.9 (<1.2); Magnesium 1.8 mg/dL (1.6-2.3); Non-African American GFR(CKD) 80 (>60 ml/min/1.73 sqM); Partial Thromboplastin Time 24.6 sec (22.0-30.0); Potassium 4.4 mmol/L (3.5-5.1); Prothrombin Time 10.2 sec (10.0-12.5); Sodium 137 mmol/L (137-145); Total Bilirubin 0.4 mg/dL (0.2-1.3); Total Protein 6.6 g/dL (6.3-8.2)
[2024-05-15 18:13] VITALS: BP 166/92; PULSE 58; RESP 19
== END 2024-05-15 18:13 | disposition home or self-care (01) ==
LOC: EC 14:38
DX: R07.89 Other chest pain (principal)
CPT/HCPCS: 36415; 71046; 80053; 83735; 84484; 85025; 85610; 85730; 93005; 99284

== ENCOUNTER 2024-10-15 06:26 | Inpatient (IN) | payer MEDICARE, OTHER ==
--- NOTE | 2024-10-15 06:56 | ED ---
Abdominal Pain HPI - General Chief Complaint: Abdominal Pain Stated Complaint: ABD Pain Time Seen by Provider: 10/15/24 06:28 Source: patient, EMS, RN notes reviewed Mode of arrival: EMS Limitations: no limitations - History of Present Illness Initial Comments: 89-year-old male presents emergency department with chief complaint of right- sided abdominal pain, right flank pain. Patient states that his sudden onset of pain this morning approxi-1 hour ago. Patient denies any fever chills she does admit to nausea states pain is improved at this time. Patient has had no prior abdominal surgeries no history of kidney stones no dysuria no change of bowel habits. Denies chest pain or shortness of breath. - Related Data Home Medications Medication Instructions Recorded Confirmed amLODIPine [Norvasc] 5 mg PO DAILY 02/07/22 05/15/24 Atorvastatin [Lipitor] 10 mg PO DAILY 05/15/24 05/15/24 Dutasteride 0.5 mg PO DAILY 05/15/24 05/15/24 HYDROcodone/APAP 10-325MG [[place] 1 tab PO Q6H PRN 05/15/24 05/15/24 10] Prevagen 1 tab PO DAILY 05/15/24 05/15/24 Tamsulosin [Flomax] 0.4 mg PO DAILY 05/15/24 05/15/24 traZODone HCL [Desyrel] 50 mg PO HS 05/15/24 05/15/24 Allergies Allergy/AdvReac Type Severity Reaction Status Date / Time diazepam [From Valium] AdvReac Confusion, Verified 10/15/24 06:42 agression Review of Systems ROS Statement: Those systems with pertinent positive or pertinent negative responses have been documented in the HPI. ROS Other: All systems not noted in ROS Statement are negative. Past Medical History Past Medical History: Atrial Fibrillation, Eye Disorder, Hyperlipidemia, Hypertension Additional Past Medical History / Comment(s): bubble in his left eye in the corner. Pt sees Dr Guy. mild left ankle edema History of Any Multi-Drug Resistant Organisms: None Reported Past Surgical History: Orthopedic Surgery Additional Past Surgical History / Comment(s): right rotator cuff, bilateral carpal tunnel. Cataract surgery, hip replacement Past Anesthesia/Blood Transfusion Reactions: No Reported Reaction Additional Past Anesthesia/Blood Transfusion Reaction / Comment(s): slow to wake up Past Psychological History: No Psychological Hx Reported Smoking Status: Never smoker Past Alcohol Use History: Rare Past Drug Use History: None Reported - Past Family History Father Family Medical History: No Reported History Mother Family Medical History: No Reported History Additional Family Medical History / Comment(s): lived 105yr General Exam Limitations: no limitations General appearance: alert, in no apparent distress Head exam: Present: atraumatic, normocephalic, normal inspection Eye exam: Present: normal appearance, PERRL, EOMI. Absent: scleral icterus, conjunctival injection, periorbital swelling ENT exam: Present: normal exam, normal oropharynx, mucous membranes moist Neck exam: Present: normal inspection, full ROM. Absent: tenderness, meningismus, lymphadenopathy Respiratory exam: Present: normal lung sounds bilaterally. Absent: respiratory distress, wheezes, rales, rhonchi, stridor Cardiovascular Exam: Present: regular rate, normal rhythm, normal heart sounds. Absent: systolic murmur, diastolic murmur, rubs, gallop, clicks GI/Abdominal exam: Present: soft, tenderness, normal bowel sounds. Absent: distended, guarding, rebound, rigid Back exam: Present: CVA tenderness (R). Absent: CVA tenderness (L) Neurological exam: Present: alert, oriented X3, CN II-XII intact Skin exam: Present: warm, dry, intact, normal color. Absent: rash Course Vital Signs 10/15/24 10/15/24 06:39 09:28 Temperature 98.5 F Pulse Rate 84 76 Respiratory 16 22 Rate Blood Pressure 153/72 139/70 O2 Sat by Pulse 93 L 88 L Oximetry Medical Decision Making - Medical Decision Making \Was pt. sent in by a medical professional or institution (, PA, METAL BURNISHER, urgent care, hospital, or penitentiary...) When possible be specific @ -No Did you speak to anyone other than the patient for history (EMS, parent, family, police, friend...)? What history was obtained from this source @ -No Did you review nursing and triage notes (agree or disagree)? Why? @ -I reviewed and agree with nursing and triage notes Were old charts reviewed (outside hosp., previous admission, EMS record, old EKG, old radiological studies, urgent care reports/EKG's, penitentiary records)? Report findings @ -No old charts were reviewed Differential Diagnosis (chest pain, altered mental status, abdominal pain women, abdominal pain men, vaginal bleeding, weakness, fever, dyspnea, syncope, headache, dizziness, GI bleed, back pain, seizure, CVA, palpatations, mental health, musculoskeletal)? @ -Differential Abdominal Pain Men: Appendicitis, cholecystitis, diverticulosis, ischemic bowel, pancreatitis, hepatitis, UTI, gastroenteritis, AAA, incarcerated hernia, bowel obstruction, constipation, inflammatory bowel, hepatitis, peptic ulcer disease, splenic infarction, perforated viscus, testicular torsion, this is not meant to be an all-inclusive list EKG interpreted by me (3pts min.). @ -As above X-rays interpreted by me (1pt min.). @ -None done CT interpreted by me (1pt min.). @ -[CAT scan of the abdomen pelvis showing evidence of cholelithiasis probably cholecystitis U/S interpreted by me (1pt. min.). @ -Ultrasound gallbladder cholelithiasis with pericholecystic fluid and gallbladder wall thickening. What testing was considered but not performed or refused? (CT, X-rays, U/S, labs)? Why? @ -None What meds were considered but not given or refused? Why? @ -None Did you discuss the management of the patient with other professionals (p rofessionals i.e. , PA, METAL BURNISHER, lab, RT, psych nurse, delinquency prevention social worker, policy checker, teacher, international first officer, director of casework services)? Give summary @ -Dr. Montalvo for admission, surgery. Was smoking cessation discussed for >3mins.? @ -No Was critical care preformed (if so, how long)? @ -No Were there social determinants of health that impacted care today? How? (Homelessness, low income, unemployed, alcoholism, drug addiction, transportation, low edu. Level, literacy, decrease access to med. care, care home, rehab)? @ -No Was there de-escalation of care discussed even if they declined (Discuss DNR or withdrawal of care, Hospice)? DNR status @ -No What co-morbidities impacted this encounter? (DM, HTN, Smoking, COPD, CAD, Cancer, CVA, ARF, Chemo, Hep., AIDS, mental health diagnosis, sleep apnea, morbid obesity)? @ -None Was patient admitted / discharged? Hospital course, mention meds given and route, prescriptions, significant lab abnormalities, going to OR and other pertinent info. @ -Admitted patient's found to have acute cholecystitis with cholelithiasis patient started on IV antibiotics, patient was admitted for further treatment and management. Undiagnosed new problem with uncertain prognosis? @ -No Drug Therapy requiring intensive monitoring for toxicity (Heparin, Nitro, Insulin, Cardizem)? @ -No Were any procedures done? @ -No Diagnosis/symptom? @ -Cholelithiasis acute cholecystitis Acute, or Chronic, or Acute on Chronic? @ -Acute Uncomplicated (without systemic symptoms) or Complicated (systemic symptoms)? @ -Complicated Side effects of treatment? @ -No Exacerbation, Progression, or Severe Exacerbation? @ -No Poses a threat to life or bodily function? How? (Chest pain, [place], [place], pneumonia, PE, COPD, DKA, ARF, appy, cholecystitis, CVA, Diverticulitis, Homicidal, Suicidal, threat to staff... and all critical care pts) @ -Yes surgical risk - Lab Data Result diagrams: 10/15/24 07:03 10/15/24 07:03 Lab Results 10/15/24 10/15/24 10/15/24 Range/Units 07:03 07:03 07:03 WBC 16.8 H (3.8-10.6) k/uL RBC 4.54 (4.30-5.90) m/uL Hgb 13.8 (13.0-17.5) gm/dL Hct 40.9 (39.0-53.0) % MCV 90.0 (80.0-100.0) fL MCH 30.4 (25.0-35.0) pg MCHC 33.8 (31.0-37.0) g/dL RDW 13.2 (11.5-15.5) % Plt Count 300 (150-450) k/uL MPV 7.9 Neutrophils % 90 % Lymphocytes % 4 % Monocytes % 4 % Eosinophils % 1 % Basophils % 0 % Neutrophils # 15.1 H (1.3-7.7) k/uL Lymphocytes # 0.6 L (1.0-4.8) k/uL Monocytes # 0.7 (0-1.0) k/uL Eosinophils # 0.2 (0-0.7) k/uL Basophils # 0.0 (0-0.2) k/uL Sodium 136 L (137-145) mmol/L Potassium 4.0 (3.5-5.1) mmol/L Chloride 96 L (98-107) mmol/L Carbon Dioxide 31 H (22-30) mmol/L Anion Gap 9 mmol/L BUN 15 (9-20) mg/dL Creatinine 0.82 (0.66-1.25) mg/dL Est GFR (CKD-EPI)AfAm >90 (>60 ml/min/1.73 sqM) Est GFR (CKD-EPI)NonAf 78 (>60 ml/min/1.73 sqM) Glucose 172 H (74-99) mg/dL Plasma Lactic Acid Kev (0.7-2.0) mmol/L Calcium 8.9 (8.4-10.2) mg/dL Total Bilirubin 1.2 (0.2-1.3) mg/dL AST 35 (17-59) U/L ALT 40 (4-49) U/L Alkaline Phosphatase 88 (38-126) U/L Total Protein 6.6 (6.3-8.2) g/dL Albumin 3.7 (3.5-5.0) g/dL Amylase 56 (30-110) U/L Lipase 62 (23-300) U/L Urine Color Yellow Urine Appearance Cloudy (Clear) Urine pH 6.0 (5.0-8.0) Ur Specific [place] 1.032 (1.001-1.035) Urine Protein 3+ H (Negative) Urine Glucose (UA) Negative (Negative) Urine Ketones 2+ H (Negative) Urine Blood Small H (Negative) Urine Nitrite Negative (Negative) Urine Bilirubin Negative (Negative) Urine Urobilinogen 3.0 (<2.0) mg/dL Ur Leukocyte Esterase Negative (Negative) Urine RBC 4 (0-5) /hpf Urine WBC 3 (0-5) /hpf Ur Squamous Epith Cells <1 (0-4) /hpf Urine Mucus Many H (None) /hpf 10/15/24 Range/Units 07:03 WBC (3.8-10.6) k/uL RBC (4.30-5.90) m/uL Hgb (13.0-17.5) gm/dL Hct (39.0-53.0) % MCV (80.0-100.0) fL MCH (25.0-35.0) pg MCHC (31.0-37.0) g/dL RDW (11.5-15.5) % Plt Count (150-450) k/uL MPV Neutrophils % % Lymphocytes % % Monocytes % % Eosinophils % % Basophils % % Neutrophils # (1.3-7.7) k/uL Lymphocytes # (1.0-4.8) k/uL Monocytes # (0-1.0) k/uL Eosinophils # (0-0.7) k/uL Basophils # (0-0.2) k/uL Sodium (137-145) mmol/L Potassium (3.5-5.1) mmol/L Chloride (98-107) mmol/L Carbon Dioxide (22-30) mmol/L Anion Gap mmol/L BUN (9-20) mg/dL Creatinine (0.66-1.25) mg/dL Est GFR (CKD-EPI)AfAm (>60 ml/min/1.73 sqM) Est GFR (CKD-EPI)NonAf (>60 ml/min/1.73 sqM) Glucose (74-99) mg/dL Plasma Lactic Acid Kev 1.2 (0.7-2.0) mmol/L Calcium (8.4-10.2) mg/dL Total Bilirubin (0.2-1.3) mg/dL AST (17-59) U/L ALT (4-49) U/L Alkaline Phosphatase (38-126) U/L Total Protein (6.3-8.2) g/dL Albumin (3.5-5.0) g/dL Amylase (30-110) U/L Lipase (23-300) U/L Urine Color Urine Appearance (Clear) Urine pH (5.0-8.0) Ur Specific [place] (1.001-1.035) Urine Protein (Negative) Urine Glucose (UA) (Negative) Urine Ketones (Negative) Urine Blood (Negative) Urine Nitrite (Negative) Urine Bilirubin (Negative) Urine Urobilinogen (<2.0) mg/dL Ur Leukocyte Esterase (Negative) Urine RBC (0-5) /hpf Urine WBC (0-5) /hpf Ur Squamous Epith Cells (0-4) /hpf Urine Mucus (None) /hpf - EKG Data -: EKG Interpreted by Me EKG Comments: EKG performed at 9: 15 sinus rhythm with a rate of 82 IN 223 QRS 104 QT/QTc 370/409 Disposition Clinical Impression: Cholecystitis, acute with cholelithiasis Disposition: ADMITTED IP TO THIS HOSP Condition: Fair Time of Disposition: 08:41
[2024-10-15 07:22] LABS: Basophils % (A) 0 %; Eosinophils # (A) 0.2 k/uL (0-0.7); Eosinophils % (A) 1 %; HCT 40.9 % (39.0-53.0); HGB 13.8 gm/dL (13.0-17.5); Lymphocytes # (A) 0.6 k/uL (1.0-4.8); Lymphocytes % (A) 4 %; MCH 30.4 pg (25.0-35.0); MCHC 33.8 g/dL (31.0-37.0); Mean Platelet Volume 7.9; Monocytes # (A) 0.7 k/uL (0-1.0); Monocytes % (A) 4 %; Neutrophils # (A) 15.1 k/uL (1.3-7.7); Neutrophils % (A) 90 %; Platelet Count 300 k/uL (150-450); RBC 4.54 m/uL (4.30-5.90); RDW 13.2 % (11.5-15.5); WBC 16.8 k/uL (3.8-10.6)
[2024-10-15 07:25] LABS: Appearance,Urine Cloudy (Clear); Bilirubin,Urine Negative (Negative); Blood,Urine Small (Negative); Color,Urine Yellow; Glucose,Urine (UA) Negative (Negative); Ketones,Urine 2+ (Negative); Leukocyte Esterase,Urine Negative (Negative); Mucus,Urine Many /hpf; Nitrite,Urine Negative (Negative); Protein,Urine 3+ (Negative); RBC,Urine 4 /hpf (0-5); Specific Gravity,Urine 1.032 (1.001-1.035); Squamous Epithelial Cell,Urine <1 /hpf (0-4); WBC,Urine 3 /hpf (0-5)
[2024-10-15 07:36] LABS: ALT 40 U/L (4-49); AST 35 U/L (17-59); African American GFR (CKD) >90 (>60 ml/min/1.73 sqM); Albumin 3.7 g/dL (3.5-5.0); Alkaline Phosphatase 88 U/L (38-126); Amylase 56 U/L (30-110); Anion Gap 9 mmol/L; Blood Urea Nitrogen 15 mg/dL (9-20); Calcium 8.9 mg/dL (8.4-10.2); Carbon Dioxide 31 mmol/L (22-30); Chloride 96 mmol/L (98-107); Glucose 172 mg/dL (74-99); Lipase 62 U/L (23-300); Non-African American GFR(CKD) 78 (>60 ml/min/1.73 sqM); Sodium 136 mmol/L (137-145); Total Bilirubin 1.2 mg/dL (0.2-1.3); Total Protein 6.6 g/dL (6.3-8.2)
--- NOTE | 2024-10-15 07:42 | CT ---
EXAMINATION TYPE: CT abdomen pelvis wo con DATE OF EXAM: 10/15/2024 7:18 AM COMPARISON: None. CLINICAL INDICATION: Male, 89 years old with history of right flank pain, Rt flank pain TECHNIQUE: Axial images were obtained from above the diaphragm to the pubic rami in the axial plane a t 5 mm thick sections. Reconstructed images are reviewed on the computer in the coronal plane. CONTRAST: mL of . Study performed without Oral Contrast DLP: 687.2 mGycm, Automated exposure control for dose reduction was used. FINDINGS: Limited CT sections are obtained the lung bases. There is infiltrate at the left base. Correlate for atelectasis or pneumonia. Bronchiectasis is present. There are some scattered bulla present. Coronary artery calcification is present. CT ABDOMEN: The duodenum may has some mild wall thickening adjacent to the gallbladder. Liver: Normal Spleen: Normal Pancreas: Normal Adrenal glands: The adrenal glands are normal. Gallbladder: Gallstones are present. Small amount of pericolic cystic fluid and/or inflammatory sanchez e may be present. Clinical correlation recommended for acute cholecystitis. Kidneys: No masses are evident. No hydronephrosis is present. No cysts are present. No renal stone s are evident. Aorta: Vascular calcification is within the aorta. Inferior vena cava: Normal. CT PELVIS: Right hip prosthesis causes beam hardening artifact through the lower pelvis Loops of bowel within the abdomen and pelvis are normal. Scattered diverticuli within the sigmoid co braulio. No acute diverticulitis is evident. This study is without oral contrast limiting bowel evaluat ion. Appendix: Not identified. No dilated tubular structure or inflammatory changes evident. Urinary bladder: Decompressed and not well aerated. Genitourinary structures: Prostate is poorly visualized. Osseous structures: No suspicious lytic or sclerotic lesions. IMPRESSION: 1. Left lower lobe infiltrate. Correlate for atelectasis and pneumonia. 2. Inflammatory changes around the gallbladder with gallstones present. Correlate for acute cholecyst itis. 3. Some mild wall thickening of the duodenum may be related to the gallbladder. Duodenitis could be c onsidered. 4. Diverticulosis without acute diverticulitis. [facility], , 10/15/2024 7:40 AM
--- NOTE | 2024-10-15 08:23 | US ---
EXAMINATION TYPE: US gallbladder DATE OF EXAM: 10/15/2024 COMPARISON: Same day CT CLINICAL INDICATION: Male, 89 years old with history of pain; ABD pain TECHNIQUE: Grayscale and color Doppler imaging of the right upper quadrant was performed. FINDINGS: EXAM MEASUREMENTS: Liver Length: 16.4 cm Gallbladder Wall: 0.4 cm CBD: 0.4 cm Right Kidney: 11.1 x 4.8 x 4.8 cm CHILD CARE DEVELOPMENT SPECIALIST NOTES: Immobile, elderly pt Pancreas: wnl, tail obscured by overlying bowel gas Liver: Visualized portions appeared wnl Gallbladder: Slightly distended with gallstones at dependent portion and possible pericholecystic fl uid with thickened wall Evidence for sonographic Corcoran's sign: Yes CBD: wnl Right Kidney: No evidence of hydro IMPRESSION: 1. Limited examination. 2. Cholelithiasis with pericholecystic fluid and gallbladder wall thickening. Correlate for acute cho lecystitis. [facility], , 10/15/2024 8:21 AM
[2024-10-15] MEDS ORDERED: ONDANSETRON 4 MG/2 ML VIAL IVP PRN (08:42)
[2024-10-15] MEDS ORDERED: NALOXONE 0.4 MG/ML 1 ML VIAL IV PRN (08:42)
[2024-10-15] MEDS: SODIUM CHLORIDE 0.9% 1,000 ML IV SCH ×2 (09:21→14:05)
[2024-10-15] MEDS: SODIUM CHLORIDE 0.9% 500 ML 500 ML IV ONE (09:22)
[2024-10-15] MEDS: PIPERACILLIN-TAZOBACTAM 3.375 GM in SODIUM CHLORIDE 0.9% 100 ML IVPB STA (09:22)
[2024-10-15] MEDS: HYDROmorphone 0.5 MG/0.5 ML SYRINGE IVP PRN (11:16)
--- NOTE | 2024-10-15 12:11 | P.GSCN ---
History of Present Illness Consult date: 10/15/24 History of present illness: CHIEF COMPLAINT: Abdominal HISTORY OF PRESENT ILLNESS: This is a 89-year-old male who presents the hospital with complaints of right upper quadrant abdominal pain that radiated up into the shoulder and down the right side with nausea and decreased appetite x 5 days. Patient denies any fever. Per family patient has been in the ER 3 times due to having falls and pain. Patient has been having cough with some phlegm. Denies any chest pain or shortness of breath. He does have a known history of atrial fibrillation and is not on any anticoagulation. Denies any abdominal surgeries. Gallbladder ultrasound had shown evidence of gallstones, pericholecystic fluid and gallbladder wall thickening to correlate for acute cholecystitis. Surgical service consulted for acute cholecystitis. PAST MEDICAL HISTORY: Atrial Fibrillation, Eye Disorder, Hyperlipidemia, Hypertension PAST SURGICAL HISTORY: See below MEDICATIONS: See below ALLERGIES: See below SOCIAL HISTORY: No illicit drug use. REVIEW OF SYSTEMS: CONSTITUTIONAL: Denies fever or chills. HEENT: Denies blurred vision, vision changes, or eye pain. Denies hemoptysis CARDIOVASCULAR: Denies chest pain or pressure. RESPIRATORY: No shortness of breath. GASTROINTESTINAL: See HPI for pertinent findings HEMATOLOGIC: Denies bleeding disorders. GENITOURINARY: Denies any blood in urine or increased urinary frequency. SKIN: Denies pruitis. Denies rash. PHYSICAL EXAM: VITAL SIGNS: Reviewed GENERAL: Well-developed in no acute distress. ABDOMEN: Soft. Nondistended. Tenderness palpation right upper quadrant. No guarding. No rebound tenderness. NEUROLOGIC: Alert and oriented. Cranial nerves II through XII grossly intact. LABORATORY DATA: WBC 16.8 Hgb 13.8 platelets 300 Sodium 136 potassium 4.0 creatinine 0.82 Lactic acid 1.2 LFTs normal lipase 62 IMAGING: Gallbladder CAT scan reports left lower lobe infiltrate correlate for atelectasis and pneumonia. Inflammatory changes around the gallbladder with gallstone present. Correlate for acute cholecystitis. Some mild wall thickening of the duodenum may be related to the gallbladder. Duodenitis could be considered. Diverticulosis without acute diverticulitis. Gallbladder ultrasound reports cholelithiasis with pericholecystic fluid and gallbladder wall thickening. Correlate for acute cholecystitis ASSESSMENT: 1. Acute cholecystitis with right upper quadrant abdominal pain. Gallbladder ultrasound reporting cholelithiasis with pericholecystic fluid and gallbladder wall thickening PLAN: -Patient scheduled for Robotic cholecystectomy today with Dr. Montalvo -Keep patient n.p.o. -Continue antibiotics -Continue pain medication as needed -Continue antiemetics as needed -Continue IV fluids Physician Choke Reamer note has been reviewed by physician. Signing provider agrees with the documented findings, assessment, and plan of care. Past Medical History Past Medical History: Atrial Fibrillation, Eye Disorder, Hyperlipidemia, Hypertension Additional Past Medical History / Comment(s): bubble in his left eye in the corner. Pt sees Dr Guy. mild left ankle edema History of Any Multi-Drug Resistant Organisms: None Reported Past Surgical History: Orthopedic Surgery Additional Past Surgical History / Comment(s): right rotator cuff, bilateral carpal tunnel. Cataract surgery, hip replacement Past Anesthesia/Blood Transfusion Reactions: No Reported Reaction Additional Past Anesthesia/Blood Transfusion Reaction / Comm: slow to wake up Past Psychological History: No Psychological Hx Reported Smoking Status: Never smoker Past Alcohol Use History: Rare Past Drug Use History: None Reported - Past Family History Father Family Medical History: No Reported History Mother Family Medical History: No Reported History Additional Family Medical History / Comment(s): lived 105yr Medications and Allergies Home Medications Medication Instructions Recorded Confirmed Type Dutasteride 0.5 mg PO DAILY 05/15/24 10/15/24 History Atorvastatin [Lipitor] 20 mg PO DAILY 10/15/24 10/15/24 History Donepezil [Aricept] 10 mg PO DAILY 10/15/24 10/15/24 History Sennosides/Docusate Sodium [Senna 3 cap PO DAILY 10/15/24 10/15/24 History Plus 8.6-50 mg Softgel] amLODIPine [Norvasc] 5 mg PO DAILY 10/15/24 10/15/24 History methocarbamoL [Robaxin] 500 mg PO Q8H 10/15/24 10/15/24 History oxyCODONE-APAP 7.5-325MG [Percocet 1 tab PO Q6HR 10/15/24 10/15/24 History 7.5-325 mg] Allergies Allergy/AdvReac Type Severity Reaction Status Date / Time diazepam [From Valium] AdvReac Confusion, Verified 10/15/24 11:12 agression Surgical - Exam Osteopathic Statement: *. No significant issues noted on an osteopathic structural exam other than those noted in the History and Physical/Consult. Vital Signs Temp Pulse Resp BP Pulse Ox 98.5 F 84 16 153/72 93 L 10/15/24 06:39 10/15/24 06:39 10/15/24 06:39 10/15/24 06:39 10/15/24 06:39 Results - Labs 10/15/24 07:03 10/15/24 07:03 Abnormal Lab Results - Last 24 Hours (Table) 10/15/24 10/15/24 10/15/24 Range/Units 07:03 07:03 07:03 WBC 16.8 H (3.8-10.6) k/uL Neutrophils # 15.1 H (1.3-7.7) k/uL Lymphocytes # 0.6 L (1.0-4.8) k/uL Sodium 136 L (137-145) mmol/L Chloride 96 L (98-107) mmol/L Carbon Dioxide 31 H (22-30) mmol/L Glucose 172 H (74-99) mg/dL Urine Protein 3+ H (Negative) Urine Ketones 2+ H (Negative) Urine Blood Small H (Negative) Urine Mucus Many H (None) /hpf Diabetes panel 10/15/24 Range/Units 07:03 Sodium 136 L (137-145) mmol/L Potassium 4.0 (3.5-5.1) mmol/L Chloride 96 L (98-107) mmol/L Carbon Dioxide 31 H (22-30) mmol/L BUN 15 (9-20) mg/dL Creatinine 0.82 (0.66-1.25) mg/dL Glucose 172 H (74-99) mg/dL Calcium 8.9 (8.4-10.2) mg/dL AST 35 (17-59) U/L ALT 40 (4-49) U/L Alkaline Phosphatase 88 (38-126) U/L Total Protein 6.6 (6.3-8.2) g/dL Albumin 3.7 (3.5-5.0) g/dL Calcium panel 10/15/24 Range/Units 07:03 Calcium 8.9 (8.4-10.2) mg/dL Albumin 3.7 (3.5-5.0) g/dL Pituitary panel 10/15/24 Range/Units 07:03 Sodium 136 L (137-145) mmol/L Potassium 4.0 (3.5-5.1) mmol/L Chloride 96 L (98-107) mmol/L Carbon Dioxide 31 H (22-30) mmol/L BUN 15 (9-20) mg/dL Creatinine 0.82 (0.66-1.25) mg/dL Glucose 172 H (74-99) mg/dL Calcium 8.9 (8.4-10.2) mg/dL Adrenal panel 10/15/24 Range/Units 07:03 Sodium 136 L (137-145) mmol/L Potassium 4.0 (3.5-5.1) mmol/L Chloride 96 L (98-107) mmol/L Carbon Dioxide 31 H (22-30) mmol/L BUN 15 (9-20) mg/dL Creatinine 0.82 (0.66-1.25) mg/dL Glucose 172 H (74-99) mg/dL Calcium 8.9 (8.4-10.2) mg/dL Total Bilirubin 1.2 (0.2-1.3) mg/dL AST 35 (17-59) U/L ALT 40 (4-49) U/L Alkaline Phosphatase 88 (38-126) U/L Total Protein 6.6 (6.3-8.2) g/dL Albumin 3.7 (3.5-5.0) g/dL Assessment and Plan Assessment: 89 yo male w/ acute cholecystitis ultrasound demonstrates gallbladder wall thickening, pericholecystic fluid hx afib, htn after discussing with family, recommend IR acute cholecystostomy tube however IR isn't available until October getting cardiology/pulmonary clearance Time with Patient: Less than 30
[2024-10-15] MEDS: PIPERACILLIN-TAZOBACTAM 3.375 GM in SODIUM CHLORIDE 0.9% 100 ML IVPB SCH (17:38)
[2024-10-15] MEDS: oxyCODONE-APAP 7.5-325MG 1 EACH TAB PO SCH (17:39)
[2024-10-15] MEDS: methocarbamoL 500 MG TAB PO SCH (17:39)
--- NOTE | 2024-10-15 18:24 | P.HPIM ---
History of Present Illness Patient is a pleasant 89 years old male with multiple medical problems as below. Presents because of abdominal pain. Information were obtained with the help of 2 female family members including at bedside. Patient presents with abdominal pain which she described as severe in the right upper quadrant radiating up to the right shoulder. Associated with rigidity in his abdomen on touch. Pain is sharp associated with low appetite. With no diarrhea. Patient also reports falling about 1 week earlier. Patient also complaining from little shortness of breath with little coughing but no overt chest pain No urinary complaint, no headache dizziness weakness or numbness Patient is afebrile currently, here and there he has mild grade temperature of 99.2, is slightly tachypneic RR 20/min, blood pressure is stable and he is saturating 93% on 2 to 3 L oxygen via nasal cannula. He has leukocytosis with 16.8. Rest of CBC, BMP is unremarkable Urine sample was concentrated CT of the abdomen and pelvis showing left lower lobe infiltrate and gallbladder findings suspicious for acute cholecystitis with associated possible duodenitis EKG shows sinus rhythm at [address]-T changes but there is evidence of first-degree AV block, I reviewed the EKG by myself and there is a P wave rather than F-wave. Patient is admitted with surgical team consultation. I discussed the case with surgery team given his comorbidity the surgeon felt patient is high risk for procedure and was considering cholecystostomy as an alternative plan however IR service are not available this week to perform such procedure. At this time patient admitted to the general medical floor with close monitoring. Review of Systems Review of systems CONSTITUTIONAL: No fever, no malaise, no fatigue. HEENT: No recent visual problems or hearing problems. Denied any sore throat. CARDIOVASCULAR: No orthopnea, PND, no palpitations, no syncope. PULMONARY: no cough, no hemoptysis. GASTROINTESTINAL: No diarrhea, . Normoactive bowel sounds. NEUROLOGICAL: No headaches, no weakness, no numbness. HEMATOLOGICAL: Denies any bleeding or petechiae. GENITOURINARY: Denies any burning micturition, frequency, or urgency. MUSCULOSKELETAL/RHEUMATOLOGICAL: Denies any joint pain, swelling, or any muscle pain. ENDOCRINE: Denies any polyuria or polydipsia. Past Medical History Past Medical History: Atrial Fibrillation, Eye Disorder, Hyperlipidemia, Hypertension Additional Past Medical History / Comment(s): bubble in his left eye in the corner. Pt sees Dr Guy. mild left ankle edema History of Any Multi-Drug Resistant Organisms: None Reported Past Surgical History: Orthopedic Surgery Additional Past Surgical History / Comment(s): right rotator cuff, bilateral carpal tunnel. Cataract surgery, hip replacement Past Anesthesia/Blood Transfusion Reactions: No Reported Reaction Additional Past Anesthesia/Blood Transfusion Reaction / Comment(s): slow to wake up Past Psychological History: No Psychological Hx Reported Smoking Status: Never smoker Past Alcohol Use History: Rare Past Drug Use History: None Reported - Past Family History Father Family Medical History: No Reported History Mother Family Medical History: No Reported History Additional Family Medical History / Comment(s): lived 105yr Medications and Allergies Home Medications Medication Instructions Recorded Confirmed Type Dutasteride 0.5 mg PO DAILY 05/15/24 10/15/24 History Atorvastatin [Lipitor] 20 mg PO DAILY 10/15/24 10/15/24 History Donepezil [Aricept] 10 mg PO DAILY 10/15/24 10/15/24 History Sennosides/Docusate Sodium [Senna 3 cap PO DAILY 10/15/24 10/15/24 History Plus 8.6-50 mg Softgel] amLODIPine [Norvasc] 5 mg PO DAILY 10/15/24 10/15/24 History methocarbamoL [Robaxin] 500 mg PO Q8H 10/15/24 10/15/24 History oxyCODONE-APAP 7.5-325MG [Percocet 1 tab PO Q6HR 10/15/24 10/15/24 History 7.5-325 mg] Allergies Allergy/AdvReac Type Severity Reaction Status Date / Time diazepam [From Valium] AdvReac Confusion, Verified 10/15/24 11:12 agression Physical Exam Vitals: Vital Signs Temp Pulse Resp BP Pulse Ox 10/15/24 13:40 78 20 144/74 10/15/24 11:19 76 22 140/67 94 L 10/15/24 09:28 76 22 139/70 88 L 10/15/24 06:39 98.5 F 84 16 153/72 93 L Intake and Output 10/14/24 10/15/24 10/15/24 22:59 06:59 14:59 Other: Weight 79.832 kg GENERAL: The patient is alert and oriented x3, not in any acute distress. Well developed, well nourished. HEENT: Pupils are round and equally reacting to light. EOMI. No scleral icterus. No conjunctival pallor. Normocephalic, atraumatic. No pharyngeal erythema. No thyromegaly. CARDIOVASCULAR: S1 and S2 present. No murmurs, rubs, or gallops. -PULMONARY: Chest is clear to auscultation, no wheezing , no crackles. Mildly tachypneic ABDOMEN: Soft, RUQ tenderness, no rebound tenderness, nondistended, normoactive bowel sounds. No palpable organomegaly. MUSCULOSKELETAL: No joint swelling or deformity. EXTREMITIES: No cyanosis, clubbing, or pedal edema. NEUROLOGICAL: Gross neurological examination did not reveal any focal deficits. SKIN: No rashes. no petechiae. Results CBC & Chem 7: 10/15/24 07:03 10/15/24 07:03 Labs: Abnormal Lab Results - Last 24 Hours (Table) 10/15/24 10/15/24 10/15/24 Range/Units 07:03 07:03 07:03 WBC 16.8 H (3.8-10.6) k/uL Neutrophils # 15.1 H (1.3-7.7) k/uL Lymphocytes # 0.6 L (1.0-4.8) k/uL Sodium 136 L (137-145) mmol/L Chloride 96 L (98-107) mmol/L Carbon Dioxide 31 H (22-30) mmol/L Glucose 172 H (74-99) mg/dL Urine Protein 3+ H (Negative) Urine Ketones 2+ H (Negative) Urine Blood Small H (Negative) Urine Mucus Many H (None) /hpf Assessment and Plan Assessment: Acute cholecystitis Left lower lobe pneumonia Acute hypoxic respiratory failure Sepsis with tachypnea, leukocytosis and mild fever Paroxysmal atrial fibrillation, currently it is sinus rhythm with first-degree AV block and rate controlled Fall 1 week prior to hospitalization Plan: Continue with Zosyn Continue with IV hydration Follow-up blood culture Surgery team consult Pulmonary team consult Further recommendation based on the clinical course DVT prophylaxis: Subcutaneous heparin GI prophylaxis: Protonix Prognosis guarded
--- NOTE | 2024-10-16 04:52 | P.CNPUL ---
History of Present Illness Consult date: 10/16/24 Requesting physician: Toni Dinh Reason for consult: pneumonia Chief complaint: Abdominal pain History of present illness: Patient is a 89-year-old male with past medical history significant for hypertension, hyperlipidemia, atrial fibrillation. Presents to the emergency department back on 10/15/2023 with a chief complaint of right upper quadrant abdominal pain. Workup in the emergency department including a CT of the abdomen/pelvis demonstrating inflammatory changes around the gallbladder with gallstones, concerning for cholecystitis. Some mild wall thickening of the duodenum, possibly secondary to above. Also, left lower lobe atelectasis versus infectious infiltrate. Ultrasound of the gallbladder demonstrating cholecystolithiasis with pericholecystic fluid and gallbladder wall thickening. CBC: WBC count 16.8, hemoglobin 13.8, platelets 300. CMP: Sodium 136, potassium 4, chloride 96, serum bicarb 31, BUN 15, creatinine 0.82, glucose 172. Lactic 1.2. Lipase 62. LFTs not elevated. Total bilirubin 1.2. Urinalysis unremarkable for infection. Patient is currently being evaluated on the general medical floor. Initially, sleeping when I walked in the room. He is resting comfortably on room air. Denies any shortness of breath. Admits to occasional cough without much sputum production. Denies any recent treatment for pneumonia. Denies any pre-existing lung disease such as COPD or asthma. Continues to report right-sided chest pain extending down to the ipsilateral groin. This pain started yesterday morning. No nausea, vomiting, fevers. Currently empirically covered on IV Zosyn. General surgery is recommending cholecystostomy tube. Review of Systems Constitutional: Denies anorexia, Denies chills, Denies fatigue, Denies fever, Denies poor appetite, Denies weight gain, Denies weight loss Ears, nose, mouth and throat: Denies headache, Denies nasal congestion, Denies nasal discharge, Denies post-nasal drip, Denies sinus pain, Denies sinus pressure, Denies sore throat Cardiovascular: Denies chest pain, Denies leg edema, Denies lightheadedness, Denies orthopnea, Denies palpitations, Denies paroxysmal nocturnal dyspnea, Denies syncope Respiratory: Reports cough, Denies congestion, Denies cough with sputum, Denies dyspnea, Denies excessive sputum, Denies pain on inspiration Gastrointestinal: Reports as per HPI Genitourinary: Denies dysuria Musculoskeletal: Denies limitation of motion Neurological: Denies seizures, Denies syncope Psychiatric: Denies anxiety, Denies depression Past Medical History Past Medical History: Atrial Fibrillation, Eye Disorder, Hyperlipidemia, Hypertension Additional Past Medical History / Comment(s): bubble in his left eye in the corner. Pt sees Dr Guy. mild left ankle edema History of Any Multi-Drug Resistant Organisms: None Reported Past Surgical History: Orthopedic Surgery Additional Past Surgical History / Comment(s): right rotator cuff, bilateral carpal tunnel. Cataract surgery, hip replacement Past Anesthesia/Blood Transfusion Reactions: No Reported Reaction Additional Past Anesthesia/Blood Transfusion Reaction / Comment(s): slow to wake up Past Psychological History: No Psychological Hx Reported Smoking Status: Never smoker Past Alcohol Use History: Rare Past Drug Use History: None Reported - Past Family History Father Family Medical History: No Reported History Mother Family Medical History: No Reported History Additional Family Medical History / Comment(s): lived 105yr Medications and Allergies Home Medications Medication Instructions Recorded Confirmed Type Dutasteride 0.5 mg PO DAILY 05/15/24 10/15/24 History Atorvastatin [Lipitor] 20 mg PO DAILY 10/15/24 10/15/24 History Donepezil [Aricept] 10 mg PO DAILY 10/15/24 10/15/24 History Sennosides/Docusate Sodium [Senna 3 cap PO DAILY 10/15/24 10/15/24 History Plus 8.6-50 mg Softgel] amLODIPine [Norvasc] 5 mg PO DAILY 10/15/24 10/15/24 History methocarbamoL [Robaxin] 500 mg PO Q8H 10/15/24 10/15/24 History oxyCODONE-APAP 7.5-325MG [Percocet 1 tab PO Q6HR 10/15/24 10/15/24 History 7.5-325 mg] Allergies Allergy/AdvReac Type Severity Reaction Status Date / Time diazepam [From Valium] AdvReac Confusion, Verified 10/15/24 11:12 agression Physical Exam Vitals: Vital Signs Temp Pulse Pulse Resp BP BP Pulse Ox 10/16/24 02:06 98.5 F 68 15 141/72 95 10/15/24 20:42 98.3 F 73 15 169/81 94 L 10/15/24 16:01 98.3 F 73 14 157/71 93 L 10/15/24 15:32 99.2 F 79 22 148/74 94 L 10/15/24 13:40 78 20 144/74 10/15/24 11:19 76 22 140/67 94 L 10/15/24 09:28 76 22 139/70 88 L 10/15/24 06:39 98.5 F 84 16 153/72 93 L Intake and Output 10/15/24 10/15/24 10/16/24 14:59 22:59 06:59 Other: # Bowel Movements 0 Weight 79.832 kg GENERAL EXAM: Alert, 89-year-old white male, comfortable in no apparent dis tress. HEAD: Normocephalic and atraumatic EYES: Normal reaction of pupils, equal size. NOSE: Clear with pink turbinates. THROAT: No erythema or exudates. NECK: No masses, no JVD. CHEST: No chest wall deformity. LUNGS: Equal air entry with no crackles, wheeze, rhonchi or dullness. On room air. No conversational dyspnea or accessory muscle use.. CVS: S1 and S2 normal with no audible murmur, regular rhythm. No extra heart sounds ABDOMEN: Obese abdomen, active bowel sounds, soft, positive Corcoran, no hepatosplenomegaly or masses. SPINE: No scoliosis or deformity SKIN: No rashes CENTRAL NERVOUS SYSTEM: No focal deficits, tone is normal in all 4 extremities. EXTREMITIES: There is no peripheral edema, clubbing, or cyanosis. Peripheral pulses are intact. Results - Laboratory Findings CBC and BMP: 10/16/24 05:20 10/16/24 05:20 Abnormal lab findings: Abnormal Labs 10/15/24 10/15/24 10/15/24 07:03 07:03 07:03 WBC 16.8 H Neutrophils # 15.1 H Lymphocytes # 0.6 L Sodium 136 L Chloride 96 L Carbon Dioxide 31 H Glucose 172 H Urine Protein 3+ H Urine Ketones 2+ H Urine Blood Small H Urine Mucus Many H - Diagnostic Findings Chest x-ray: image reviewed Assessment and Plan Assessment: Acute cholecystitis with cholelithiasis, Ultrasound of the gallbladder demonstrating cholecystolithiasis with pericholecystic fluid and gallbladder wall thickening Acute leukocytosis, likely secondary to above Abdominal pain, secondary to above Left lower lobe atelectasis versus pneumonia Hypertension History of hyperlipidemia History of paroxysmal atrial fibrillation, currently sinus mechanism Memory impairment, takes Aricept on outpatient basis Plan: Patient's medications, labs, imaging reviewed Abdominal CT showing a left lower lobe infiltrate, favoring atelectasis at the base Currently resting comfortably on room air Provide patient with incentive spirometer and encourage pulmonary toileting Obtain chest x-ray Continues on empiric antibiotics Reportedly, plan is for cholecystostomy tube with General Surgery tomorrow We will continue to follow I have personally seen and examined the patient, performed the documentation and the assessment and plan as written. Number of minutes spent on the visit:20 This is a joint evaluation that was done along with the nurse practitioner. Elderly 89-year-old male patient with right upper quadrant pain and ultrasound the gallbladder showed cholelithiasis and pericholecystic fluid consistent with acute cholecystitis. The patient has some mild leukocytosis with a white cell count of 16 and the LFTs are nonelevated. Normal bilirubin. Normal alkaline phosphatase. Overall respiratory status is stable. The patient is currently on 2 L of oxygen by nasal cannula with pulse ox 94%. Pulmonary services were requested for a preoperative pulmonary clearance. No contraindications from the pulmonary standpoint. Meanwhile, the patient was also seen by cardiology as the patient has a cardiac murmur. Echocardiogram was done and this was a technically difficult study. The patient has normal LV, moderate to severe aortic stenosis with a mean gradient of 25. Ejection fraction of 55 to 60% and moderate degree of pulmonary hypertension. Remains on IV Zosyn. Awaiting a final cardiac clearance to be given by cardiology for an underlying cholecystectomy. No contraindication from the pulmonary standpoint. Chest x- ray was reviewed and it shows some mild interstitial markings and some atelect atic changes otherwise negative. Time with Patient: Greater than 30
--- NOTE | 2024-10-16 07:07 | P.PN ---
Subjective patient seen and evaluated bedside. Patient denies any abdominal pain at this time, no nausea, no vomiting, no fevers chills shortness of breath or chest pain. Objective - Vital Signs Vital signs: Vital Signs Temp 98.5 F 10/16/24 02:06 Pulse 68 10/16/24 02:06 Resp 15 10/16/24 02:06 BP 141/72 10/16/24 02:06 Pulse Ox 95 10/16/24 02:06 FiO2 Intake & Output 10/15/24 10/16/24 10/16/24 18:59 06:59 18:59 Weight 79.832 kg Other: # Voids 4 # Bowel Movements 0 - Exam GEN no acute distress Cardiovascular regular rate and rhythm Pulmonary nonlabored breathing Abdomen soft nontender nondistended no guarding rebound tenderness - Labs CBC & Chem 7: 10/15/24 07:03 10/15/24 07:03 Labs: Abnormal Lab Results - Last 24 Hours (Table) 10/15/24 10/15/24 10/15/24 Range/Units 07:03 07:03 07:03 WBC 16.8 H (3.8-10.6) k/uL Neutrophils # 15.1 H (1.3-7.7) k/uL Lymphocytes # 0.6 L (1.0-4.8) k/uL Sodium 136 L (137-145) mmol/L Chloride 96 L (98-107) mmol/L Carbon Dioxide 31 H (22-30) mmol/L Glucose 172 H (74-99) mg/dL Urine Protein 3+ H (Negative) Urine Ketones 2+ H (Negative) Urine Blood Small H (Negative) Urine Mucus Many H (None) /hpf Assessment and Plan Assessment: 89-year-old male with improving cholecystitis Continue IV antibiotics Await a.m. labs Abdominal pain is improved acknowledge pulmonology recommendations Awaiting cardiology recommendations initially recommended an IR cholecystotomy tube tube however we will not have anyone until October Time with Patient: Less than 30
--- NOTE | 2024-10-16 07:48 | XR ---
EXAMINATION TYPE: XR chest 1V portable DATE OF EXAM: 10/16/2024 6:49 AM COMPARISON: 05/15/2024 CLINICAL INDICATION: Male, 89 years old with history of f/u atelectasis vs pneumonia, TECHNIQUE: XR chest 1V portable view(s) obtained. FINDINGS: The heart size is prominent. The pulmonary vasculature is prominent. Mild diffuse scattered infiltrates are present. These are nonspecific. Correlate for pulmonary edema or atelectasis. Continued follow-up is recommended.. IMPRESSION: 1. Mild diffuse increased lung markings. Correlate for pulmonary edema or atelectasis. Follow-up [facility]ud[facility], , 10/16/2024 7:46 AM
[2024-10-16] MEDS: SENNOSIDES-DOCUSATE SODIUM 1 EACH TAB PO SCH (08:49)
[2024-10-16] MEDS: ATORVASTATIN 20 MG TAB PO SCH (08:49)
[2024-10-16] MEDS: DONEPEZIL 10 MG TAB PO SCH (08:50)
[2024-10-16 08:51] LABS: Basophils # (A) 0.03 X 10*3/uL (0.00-0.10); Basophils % (A) 0.2 %; Eosinophils # (A) 0.13 X 10*3/uL (0.04-0.35); HCT 38.6 % (39.6-50.0); HGB 12.6 g/dL (13.0-17.0); Lymphocytes # (A) 0.92 X 10*3/uL (0.90-5.00); Lymphocytes % (A) 7.1 %; MCHC 32.6 g/dL (32.0-37.0); MCV 91.9 FL (80.0-97.0); Mean Platelet Volume 9.9 FL (9.5-12.2); Monocytes # (A) 0.87 X 10*3/uL (0.20-1.00); Monocytes % (A) 6.7 %; NRBC Per 100 WBC 0 X 10*3/uL (0.00-0.01); Neutrophils # (A) 10.96 X 10*3/uL (1.80-7.70); Neutrophils % (A) 84.5 %; Platelet Count 275 X 10*3/uL (140-440); WBC 12.98 X 10*3/uL (4.50-10.00)
[2024-10-16 09:01] LABS: ALT 46 U/L (10-49); AST 54 U/L (14-35); Albumin 3.2 g/dL (3.8-4.9); Albumin/Globulin Ratio 1.39 Ratio (1.60-3.17); Alkaline Phosphatase 89 U/L (41-126); BUN/Creat Ratio 16.57 Ratio (12.00-20.00); Bilirubin, Conjugated 0.28 mg/dL (0.20-0.40); Bilirubin,Unconjugated 0.22 mg/dL (0.20-1.00); Blood Urea Nitrogen 11.6 mg/dL (9.0-27.0); Calcium 8.6 mg/dL (8.7-10.3); Carbon Dioxide 25.3 mmol/L (21.6-31.8); Chloride 104 mmol/L (96-109); Globulin 2.3 g/dL (1.6-3.3); Glucose 103 mg/dL (70-110); Sodium 140 mmol/L (135-145); Total Bilirubin 0.5 mg/dL (0.3-1.2); Total Protein 5.5 g/dL (6.2-8.2)
[2024-10-16 09:37] LABS: NT-Pro-B-Type Natriuretic Pept 514 pg/mL (0-450)
--- NOTE | 2024-10-16 10:53 | P.CRDCN ---
History of Present Illness Consult date: 10/16/24 Reason for Consult (text): Cardiac risk assessment History of present illness: This is an 89-year-old male patient of Dr. Kirk, last seen in the office on 12/29/2022, with past medical history of hypertension, hyperlipidemia, valvular heart disease with moderate aortic stenosis, mild mitral regurgitation, mild mitral stenosis and mild to moderate tricuspid regurgitation, dementia, benign prostatic hypertrophy. He does not follow with a electrical maintenance engineer and does not not have a previous cardiac surgery/stents done. We have been asked to do cardiac risk assessment. Patient presented to the hospital due to right upper quadrant abdominal pain. General surgery is following the patient for cholecystitis with plan for possible cholecystectomy. Patient currently denies abdominal pain. Patient denies having any chest pain no shortness of breath. He states he is not normally physically active at home. He lives at home with his . He d enies history of diabetes. Blood pressure 138/58, heart rate 69, pulse ox 92% on room air. -EKG: Sinus rhythm with no acute ST changes. -Chest x-ray: Mild diffuse increased lung markings correlate for pulmonary edema or atelectasis. -Laboratory studies: WBC initially 16.8 now 12.9, hemoglobin 12.6. Electrolytes and renal function are normal. proBNP 514. Procalcitonin 0.22.. -Home cardiac medications: Amlodipine 5 mg daily, atorvastatin 20 mg daily.. -Echocardiogram performed in the office on 02/23/2023 revealed EF of 55 to 60%, mild LVH. Mild aortic regurgitation and moderate aortic stenosis. Aortic valve is calcified. Mild mitral regurgitation. Mild mitral stenosis. Mitral valve is calcified. Mild to moderate tricuspid regurgitation. Normal PASP. Lexiscan Cardiolite stress test performed in the office on 09/10/2020 revealed a negative Lexiscan stress test. Probably abnormal study with mild reversible defect involving the inferior basal segment and inferior apical segment. Could be secondary to soft tissue attenuation or motion artifact but ischemia cannot be excluded. Gated images showed normal wall motion and thickening. Review Of Systems: At the time of my exam: CONSTITUTIONAL: Denies fever or chills. HEENT: Denies blurred vision, vision changes, or eye pain. Denies hemoptysis CARDIOVASCULAR: Denies chest pain. Denies orthopnea. Denies PND. Denies palpitations RESPIRATORY: Denies shortness of breath. GASTROINTESTINAL: Denies abdominal pain. Denies nausea or vomiting. HEMATOLOGIC: Denies bleeding disorders. GENITOURINARY: Denies any blood in urine. SKIN: Denies puritis. Denies rash. Physical examination: Gen: This is an 89-year-old male in no acute distress VS: reviewed HEENT: Head is atraumatic, normocephalic. Pupils equal, round. Sclerae is anict caesar. NECK: Supple. No JVD. LUNGS: Clear to auscultation. No wheezes or rhonchi. No intercostal r etractions. HEART: Regular rate and rhythm. Significant systolic murmur of . ABDOMEN: Soft No tenderness. EXTREMITIES: No pedal edema. No calf tenderness. NEUROLOGICAL: Patient is awake, alert and oriented x2. Assessment: Acute cholecystitis Valvular heart disease with moderate aortic stenosis, mild aortic regurgitation, mild mitral regurgitation and mild mitral stenosis, mild to moderate tricuspid regurgitation. Atelectasis Hypertension Hyperlipidemia Noted that there is documentation of atrial fibrillation in this chart but patient is not on appropriate medications for this and all previous EKGs were reviewed with no evidence of atrial fibrillation. This was not documented in his previous office notes. Doubt the patient has atrial fibrillation. Plan: Resume patient's home cardiac medications including amlodipine Obtain 2-D echocardiogram and Doppler study to evaluate for aortic stenosis At this time, do not feel that this patient is a good surgical candidate. We will further evaluate the aortic stenosis with an echocardiogram and make further recommendations based upon results. Further recommendations to follow based upon clinical course Thank you kindly for this consultation. Nurse practitioner note has been reviewed, I agree with documented findings and plan of care. Patient was seen and examined. Past Medical History Past Medical History: Atrial Fibrillation, Eye Disorder, Hyperlipidemia, Hypertension Additional Past Medical History / Comment(s): bubble in his left eye in the corner. Pt sees Dr Guy. mild left ankle edema History of Any Multi-Drug Resistant Organisms: None Reported Past Surgical History: Orthopedic Surgery Additional Past Surgical History / Comment(s): right rotator cuff, bilateral car pal tunnel. Cataract surgery, hip replacement Past Anesthesia/Blood Transfusion Reactions: No Reported Reaction Additional Past Anesthesia/Blood Transfusion Reaction / Comment(s): slow to wake up Past Psychological History: No Psychological Hx Reported Smoking Status: Never smoker Past Alcohol Use History: Rare Past Drug Use History: None Reported - Past Family History Father Family Medical History: No Reported History Mother Family Medical History: No Reported History Additional Family Medical History / Comment(s): lived 105 Medications and Allergies Home Medications Medication Instructions Recorded Confirmed Type Dutasteride 0.5 mg PO DAILY 05/15/24 10/15/24 History Atorvastatin [Lipitor] 20 mg PO DAILY 10/15/24 10/15/24 History Donepezil [Aricept] 10 mg PO DAILY 10/15/24 10/15/24 History Sennosides/Docusate Sodium [Senna 3 cap PO DAILY 10/15/24 10/15/24 History Plus 8.6-50 mg Softgel] amLODIPine [Norvasc] 5 mg PO DAILY 10/15/24 10/15/24 History methocarbamoL [Robaxin] 500 mg PO Q8H 10/15/24 10/15/24 History oxyCODONE-APAP 7.5-325MG [Percocet 1 tab PO Q6HR 10/15/24 10/15/24 History 7.5-325 mg] Allergies Allergy/AdvReac Type Severity Reaction Status Date / Time diazepam [From Valium] AdvReac Confusion, Verified 10/15/24 11:12 agression Physical Exam Vitals: Vital Signs Temp Pulse Pulse Resp BP BP BP 10/16/24 07:39 98.3 F 69 16 138/58 10/16/24 02:06 98.5 F 68 15 141/72 10/15/24 20:42 98.3 F 73 15 169/81 10/15/24 16:01 98.3 F 73 14 157/71 10/15/24 15:32 99.2 F 79 22 148/74 10/15/24 13:40 78 20 144/74 10/15/24 11:19 76 22 140/67 10/15/24 09:28 76 22 139/70 Pulse Ox 10/16/24 07:39 92 L 10/16/24 02:06 95 10/15/24 20:42 94 L 10/15/24 16:01 93 L 10/15/24 15:32 94 L 10/15/24 13:40 10/15/24 11:19 94 L 10/15/24 09:28 88 L Intake and Output 10/15/24 10/16/2425 22:59 06:59 14:59 Other: Voiding Method Urinal # Voids 4 # Bowel Movements 0 Weight 79.832 kg Results 10/16/24 05:20 10/16/24 05:20 CBC 10/16/24 Range/Units 05:20 WBC 12.98 H (4.50-10.00) X 10*3/uL RBC 4.20 L (4.40-5.60) X 10*6/uL Hgb 12.6 L (13.0-17.0) g/dL Hct 38.6 L (39.6-50.0) % Plt Count 275 (140-440) X 10*3/uL Current Medications Generic Name Dose Route Start Last Admin Trade Name Freq PRN Reason Stop Dose Admin Atorvastatin Calcium 20 mg 10/16/24 09:00 10/16/24 08:49 Atorvastatin 20 Mg Tab PO 20 mg DAILY LAUREL Administration Donepezil HCl 10 mg 10/16/24 09:00 10/16/24 08:50 Donepezil 10 Mg Tab PO 10 mg DAILY LAUREL Administration Hydromorphone HCl 0.5 mg 10/15/24 08:42 10/15/24 11:16 Hydromorphone 0.5 Mg/0.5 Ml Syringe IVP 0.5 mg Q3HR PRN Administration Moderate Pain (Scale 4 to 6) Piperacillin Sod/Tazobactam 100 mls @ 25 mls/hr 10/15/24 16:00 10/16/24 08:49 Sod 3.375 gm/ Sodium Chloride IVPB 25 mls/hr Q8HR LAUREL Administration Protocol Sodium Chloride 1,000 mls @ 50 mls/hr 10/15/24 14:00 10/16/24 08:50 Saline 0.9% IV Not Given .Q20H LAUREL Methocarbamol 500 mg 10/15/24 14:00 10/16/24 06:14 Methocarbamol 500 Mg Tab PO 500 mg Q8H LAUREL Administration Naloxone HCl 0.2 mg 10/15/24 08:42 Naloxone 0.4 Mg/Ml 1 Ml Vial IV Q2M PRN Opioid Reversal Oxycodone/Acetaminophen 1 each 10/15/24 18:00 10/16/24 06:14 Oxycodone-Apap 7.5-325mg 1 Each Tab PO 1 each Q6HR LAUREL Administration Senna/Docusate Sodium 3 each 10/16/24 09:00 10/16/24 08:49 Sennosides-Docusate Sodium 1 Each Tab PO 3 each DAILY LAUREL Administration Intake and Output 10/15/24 10/16/24 10/16/24 22:59 06:59 14:59 Other: Voiding Method Urinal # Voids 4 # Bowel Movements 0 Weight 79.832 kg 10/16/24 05:20 10/15/24 07:03
[2024-10-16] MEDS: amLODIPine 5 MG TAB PO SCH (11:24)
[2024-10-16] MEDS: FUROSEMIDE 10 MG/ML 4 ML VIAL IV STA (12:52)
--- NOTE | 2024-10-16 13:15 | CA ---
Transthoracic Echo Report Name: Reed Covington Age: 89 Gender: M : 1935 Exam Date: 10/16/2024 10:42 Exam Location: [facility] Ht (in): 66 Wt (lb): 176 Ordering Physician: Luna Velazquez Attending/Referring Phys: [id number], Caroline Landscaping Supervisor Lanie Carlin RDCS Procedure CPT: Indications: Cardiac Hx: Technical Quality: Good Contrast 1: Total Dose (mL): Contrast 2: Total Dose (mL): MEASUREMENTS (Male / Female) Normal Values 2D ECHO LV Diastolic Diameter PLAX 5.2 cm 4.2 - 5.9 / 3.9 - 5.3 cm LV Systolic Diameter PLAX 3.4 cm IVS Diastolic Thickness 0.9 cm 0.6 - 1.0 / 0.6 - 0.9 cm LVPW Diastolic Thickness 1.0 cm 0.6 - 1.0 / 0.6 - 0.9 cm LV Relative Wall Thickness 0.4 LVOT Diameter 2.1 cm LV Diastolic Volume MOD BP 136.5 cm??? 67 - 155 / 56 - 104 cm??? LV Systolic Volume MOD BP 54.3 cm??? 22 - 58 / 19 - 49 cm??? LV Ejection Fraction MOD BP 60.2 % >= 55 % LV Cardiac Index MOD BP 2785.5 cm???/min???m??? LV Diastolic Volume MOD 4C 139.5 cm??? LV Systolic Volume MOD 4C 54.7 cm??? LV Ejection Fraction MOD 4C 60.8 % LV Cardiac Index MOD 4C 2872.9 cm???/min???m??? LV Diastolic Length 4C 8.6 cm LV Systolic Length 4C 7.2 cm LV Diastolic Volume MOD 2C 132.7 cm??? LV Systolic Volume MOD 2C 51.4 cm??? LV Ejection Fraction MOD 2C 61.3 % LV Cardiac Index MOD 2C 2756.0 cm???/min???m??? LV Diastolic Length 2C 8.5 cm LV Systolic Length 2C 6.9 cm LA Volume 93.3 cm??? 18 - 58 / 22 - 52 cm??? LA Volume Index 47.9 cm???/m??? 16 - 28 cm???/m??? DOPPLER AV Peak Velocity 334.0 cm/s AV Peak Gradient 44.6 mmHg AV Mean Velocity 241.2 cm/s AV Mean Gradient 25.4 mmHg AV Velocity Time Integral 81.7 cm LVOT Peak Velocity 108.2 cm/s LVOT Peak Gradient 4.7 mmHg LVOT Velocity Time Integral 24.5 cm LVOT Stroke Volume 88.8 cm??? LVOT Stroke Volume Index 46.9 ml/m??? LVOT Cardiac Index 3006.3 cm???/min???m??? AV Area Cont Eq vti 1.1 cm??? AV Area Cont Eq pk 1.2 cm??? MV Peak Velocity 119.1 cm/s MV Peak Gradient 5.7 mmHg MV Mean Velocity 78.1 cm/s MV Mean Gradient 2.7 mmHg MV Velocity Time Integral 31.2 cm MV Area PHT 4.5 cm??? Mitral E Point Velocity 83.8 cm/s Mitral A Point Velocity 102.4 cm/s Mitral E to A Ratio 0.8 MV Deceleration Time 167.7 ms TR Peak Velocity 308.4 cm/s TR Peak Gradient 38.0 mmHg Right Atrial Pressure 15.0 mmHg Pulmonary Artery Systolic Pressu 53.0 mmHg Right Ventricular Systolic Press 53.0 mmHg PV Peak Velocity 82.8 cm/s PV Peak Gradient 2.7 mmHg FINDINGS Left Ventricle Left ventricular ejection fraction is estimated at 55-60 %. Left ventricular cavity size normal. Left ventricular wall thickness normal. No obvious regional wall motion abnormalities. Right Ventricle Normal right ventricular size and function. Moderate to severe pulmonary hypertension. Right Atrium Normal right atrial size. Left Atrium Severely increased left atrial volume. Mildly increased left atrial area. Mitral Valve Mitral valve thickened. Mitral annular calcification. No evidence for mitral valve prolapse. Mild mitral stenosis. Mild mitral regurgitation. Aortic Valve Trileaflet aortic valve. Diffuse thickening of the aortic valve cusps with reduced excursion. Moderate to severe aortic stenosis. Mean gradient 25mmHg, Tricuspid Valve Structurally normal tricuspid valve. No tricuspid stenosis. Mild tricuspid regurgitation. Pulmonic Valve Structurally normal pulmonic valve. No pulmonic stenosis. Trace pulmonic regurgitation. Pericardium No pericardial effusion. Aorta Aortic annulus normal. Mildly dilated ascending aorta. CONCLUSIONS Technically difficult study for interpretation Normal LV systolic function Moderate pulmonary hypertension Aortic sclerosis with moderate aortic stenosis and trace insufficiency Previewed by: Dr. See Avendaño MD (Electronically Signed) Final Date: 16 October 2024 13:14
--- NOTE | 2024-10-17 06:24 | P.PN ---
Subjective Progress Note Date: 10/16/24 Patient is a pleasant 89 years old male with multiple medical problems as below. Presents because of abdominal pain. Information were obtained with the help of 2 female family members including at bedside. Patient presents with abdominal pain which she described as severe in the right upper quadrant radiating up to the right shoulder. Associated with rigidity in his abdomen on touch. Pain is sharp associated with low appetite. With no diarrhea. Patient also reports falling about 1 week earlier. Patient also complaining from little shortness of breath with little coughing but no overt chest pain No urinary complaint, no headache dizziness weakness or numbness Patient is afebrile currently, here and there he has mild grade temperature of 99.2, is slightly tachypneic RR 20/min, blood pressure is stable and he is saturating 93% on 2 to 3 L oxygen via nasal cannula. He has leukocytosis with 16.8. Rest of CBC, BMP is unremarkable Urine sample was concentrated CT of the abdomen and pelvis showing left lower lobe infiltrate and gallbladder findings suspicious for acute cholecystitis with associated possible duodenitis EKG shows sinus rhythm at [address]-T changes but there is evidence of first-degree AV block, I reviewed the EKG by myself and there is a P wave rather than F-wave. Patient is admitted with surgical team consultation. I discussed the case with surgery team given his comorbidity the surgeon felt patient is high risk for procedure and was considering cholecystostomy as an alternative plan however IR service are not available this week to perform such procedure. At this time patient admitted to the general medical floor with close monitoring. 10/16/2024 Patient is seen and evaluated in follow-up with general surgery and cardiology following. Patient tentatively scheduled to undergo cholecystectomy awaiting cardiology clearance given significant history. Patient does not have history of A-fib but does have other cardiac issues including heart failure. Patient was continued on IV hydration which has been discontinued and will give a dose of Lasix. Patient would be considered moderate to high risk although relatively stable I would like to proceed with the surgery. Currently awaiting 2D echo at this time. Review of systems: Constitutional: No reports of fatigue, fever, or chills Cardiovascular: No reports of chest pain or palpitations Respiratory: No reports of shortness of breath or cough GI: No reports of nausea, vomiting, or diarrhea, reports abdominal tenderness in the right upper quadrant : No reports of dysuria or retention Neurovascular: No reports of weakness or numbness All medications have been reviewed Physical exam: GENERAL: The patient is alert and oriented x3, not in any acute distress. Well developed, elderly appearing, ill-appearing HEENT: Pupils are round and equally reacting to light. EOMI. No scleral icterus. No conjunctival pallor. Normocephalic, atraumatic. No pharyngeal erythema. No th yromegaly. CARDIOVASCULAR: S1 and S2 present. No murmurs, rubs, or gallops. -PULMONARY: Diminished breath sounds bilaterally otherwise chest is clear to auscultation, no wheezing , no crackles. Mildly tachypneic ABDOMEN: Soft, RUQ tenderness with deep palpation, no rebound tenderness, nondistended, normoactive bowel sounds. No palpable organomegaly. MUSCULOSKELETAL: No joint swelling or deformity. EXTREMITIES: No cyanosis, clubbing, or pedal edema. NEUROLOGICAL: Gross neurological examination did not reveal any focal deficits. Diffusely weak SKIN: No rashes. no petechiae. Assessment: Acute cholecystitis, tentatively scheduled for cholecystectomy and awaiting cardiac clearance Left lower lobe pneumonia, present on admission Acute hypoxic respiratory failure, secondary to above Sepsis with tachypnea, leukocytosis and mild fever, present on admission, possibly secondary to acute cholecystitis Generalized weakness with recent fall at home GI prophylaxis DVT prophylaxis Full code Plan: Continue with Zosyn Discontinue IV hydration and give a dose of Lasix Cultures thus far negative General Surgery following and tentatively scheduled for cholecystectomy. Discussion of cholecystostomy tube although no physician available until late October at this facility Cardiology consulted for cardiac clearance awaiting 2D echo further recommendation based on the clinical course Given patient's age and significant comorbidities, would place the patient at moderate to high risk for surgical intervention although patient is relatively stable and would like to proceed with surgical intervention. Awaiting cardiac clearance The impression and plan of care has been dictated by Yesy Tierney, Nurse Practitioner as directed. Dr. Isis MD I have performed a history and examination and MDM of this patient, discussed the same with the dictator, and agree with the dictator's assessment and plan as written ,documented as a scribe. Based on total visit time, I have performed more than 50% of the visit. Objective - Vital Signs Vital signs: Vital Signs Temp 98.3 F 10/16/24 07:39 Pulse 69 10/16/24 07:39 Resp 16 10/16/24 07:39 BP 138/58 10/16/24 07:39 Pulse Ox 92 L 10/16/24 07:39 FiO2 Intake & Output 10/15/24 10/16/24 10/16/24 18:59 06:59 18:59 Weight 79.832 kg Other: Voiding Method Urinal # Voids 4 # Bowel Movements 0 - Labs CBC & Chem 7: 10/16/24 05:20 10/16/24 05:20 Labs: Abnormal Lab Results - Last 24 Hours (Table) 10/16/24 10/16/24 Range/Units 05:20 05:20 WBC 12.98 H (4.50-10.00) X 10*3/uL RBC 4.20 L (4.40-5.60) X 10*6/uL Hgb 12.6 L (13.0-17.0) g/dL Hct 38.6 L (39.6-50.0) % Immature Gran # 0.07 H (0.00-0.04) X 10*3/uL Neutrophils # 10.96 H (1.80-7.70) X 10*3/uL Calcium 8.6 L (8.7-10.3) mg/dL AST 54 H (14-35) U/L NT-Pro-B Natriuret Pep 514 H (0-450) pg/mL Total Protein 5.5 L (6.2-8.2) g/dL Albumin 3.2 L (3.8-4.9) g/dL Albumin/Globulin Ratio 1.39 L (1.60-3.17) Ratio
[2024-10-17 09:16] LABS: Basophils # (A) 0.04 X 10*3/uL (0.00-0.10); Basophils % (A) 0.3 %; Eosinophils # (A) 0.16 X 10*3/uL (0.04-0.35); HCT 41.7 % (39.6-50.0); HGB 13.7 g/dL (13.0-17.0); Lymphocytes # (A) 0.91 X 10*3/uL (0.90-5.00); Lymphocytes % (A) 5.9 %; MCH 29.7 pg (27.0-32.0); MCHC 32.9 g/dL (32.0-37.0); MCV 90.3 FL (80.0-97.0); Mean Platelet Volume 9.6 FL (9.5-12.2); Monocytes # (A) 1.04 X 10*3/uL (0.20-1.00); Monocytes % (A) 6.8 %; NRBC Per 100 WBC 0 X 10*3/uL (0.00-0.01); Neutrophils # (A) 13.08 X 10*3/uL (1.80-7.70); Neutrophils % (A) 85.4 %; Platelet Count 329 X 10*3/uL (140-440); RBC 4.62 X 10*6/uL (4.40-5.60); RDW 12.9 % (11.5-14.5); WBC 15.32 X 10*3/uL (4.50-10.00)
[2024-10-17] MEDS: amLODIPine 5 MG TAB PO SCH (09:38)
[2024-10-17] MEDS ORDERED: ONDANSETRON 4 MG/2 ML VIAL IVP PRN (11:19)
--- NOTE | 2024-10-17 11:26 | P.PN ---
Subjective Progress Note Date: 10/17/24 Reason for Consult (text): Cardiac risk assessment History of present illness: This is an 89-year-old male patient of Dr. Kirk, last seen in the office on 12/29/2022, with past medical history of hypertension, hyperlipidemia, valvular heart disease with moderate aortic stenosis, mild mitral regurgitation, mild mitral stenosis and mild to moderate tricuspid regurgitation, dementia, benign prostatic hypertrophy. He does not follow with a miner assistant and does not not have a previous cardiac surgery/stents done. We have been asked to do cardiac risk assessment. Patient presented to the hospital due to right upper quadrant abdominal pain. General surgery is following the patient for cholecystitis with plan for possible cholecystectomy. Patient currently denies abdominal pain. Patient denies having any chest pain no shortness of breath. He states he is not normally physically active at home. He lives at home with his . He denies history of diabetes. Blood pressure 138/58, heart rate 69, pulse ox 92% on room air. -EKG: Sinus rhythm with no acute ST changes. -Chest x-ray: Mild diffuse increased lung markings correlate for pulmonary edema or atelectasis. -Laboratory studies: WBC initially 16.8 now 12.9, hemoglobin 12.6. Electrolytes and renal function are normal. proBNP 514. Procalcitonin 0.22.. -Home cardiac medications: Amlodipine 5 mg daily, atorvastatin 20 mg daily.. -Echocardiogram performed in the office on 02/23/2023 revealed EF of 55 to 60%, mild LVH. Mild aortic regurgitation and moderate aortic stenosis. Aortic valve is calcified. Mild mitral regurgitation. Mild mitral stenosis. Mitral valve is calcified. Mild to moderate tricuspid regurgitation. Normal PASP. Lexiscan Cardiolite stress test performed in the office on 09/10/2020 revealed a negative Lexiscan stress test. Probably abnormal study with mild reversible defect involving the inferior basal segment and inferior apical segment. Could be secondary to soft tissue attenuation or motion artifact but ischemia cannot be excluded. Gated images showed normal wall motion and thickening. 10/25 Patient seen and examined. Patient denies having abdominal pain. He denies chest pain or chest pressure. No shortness of breath. Blood pressures running slightly on the high side at 158/89 and we will plan to increase amlodipine. Heart rate is running 59-74, pulse ox 97% on 2 L nasal cannula. Repeat blood work reveals WBC 15.3, hemoglobin 13.7. Echocardiogram reveals difficult study for interpretation. Normal LV systolic function. Moderate pulmonary hypertension. Aortic sclerosis with moderate aortic stenosis and trace insufficiency. Physical examination: Gen: This is an 89-year-old male in no acute distress VS: reviewed HEENT: Head is atraumatic, normocephalic. Pupils equal, round. Sclerae is anicteric. NECK: Supple. No JVD. LUNGS: Clear to auscultation. No wheezes or rhonchi. No intercostal retractions. HEART: Regular rate and rhythm. Significant systolic murmur of . ABDOMEN: Soft No tenderness. EXTREMITIES: No pedal edema. No calf tenderness. NEUROLOGICAL: Patient is awake, alert and oriented x2. Assessment: Acute cholecystitis Valvular heart disease with moderate aortic stenosis, mild aortic regurgitation, mild mitral regurgitation and mild mitral stenosis, mild to moderate tricuspid regurgitation. Atelectasis Hypertension Hyperlipidemia Noted that there is documentation of atrial fibrillation in this chart but patient is not on appropriate medications for this and all previous EKGs were reviewed with no evidence of atrial fibrillation. This was not documented in his previous office notes. Doubt the patient has atrial fibrillation. Plan: Continue patient's home cardiac medications including amlodipine Patient is at intermediate risk for perioperative cardiovascular risk due to underlying aortic stenosis. No absolute contraindications. No further cardiac workup at this time Cardiology will sign off this case and follow on an as-needed basis. Please reconsult for any new concerns. Patient may follow-up in the office in [address] Kirk. Nurse practitioner note has been reviewed, I agree with documented findings and plan of care. Patient was seen and examined. Objective - Vital Signs Vital signs: Vital Signs Temp 97.7 F 10/17/24 07:00 Pulse 59 L 10/17/24 07:00 Resp 18 10/17/24 07:00 BP 159/69 10/17/24 07:00 Pulse Ox 97 10/17/24 07:00 FiO2 Intake & Output 10/16/24 10/17/24 10/17/24 18:59 06:59 18:59 Intake Total 236 240 Output Total 1750 300 Balance -1514 -300 240 Intake: Oral 236 240 Output: Urine 1750 300 Other: Voiding Method Urinal Urinal # Bowel Movements 0 - Labs CBC & Chem 7: 10/17/24 05:45 10/16/24 05:20 Labs: Abnormal Lab Results - Last 24 Hours (Table) 10/16/24 10/17/24 Range/Units 05:20 05:45 WBC 15.32 H (4.50-10.00) X 10*3/uL Immature Gran # 0.09 H (0.00-0.04) X 10*3/uL Neutrophils # 13.08 H (1.80-7.70) X 10*3/uL Monocytes # 1.04 H (0.20-1.00) X 10*3/uL NT-Pro-B Natriuret Pep 514 H (0-450) pg/mL Microbiology - Last 24 Hours (Table) 10/15/24 09:02 Blood Culture - Preliminary Blood
[2024-10-17 11:29] LABS: ALT 60 U/L (10-49); AST 61 U/L (14-35); Albumin 3.4 g/dL (3.8-4.9); Albumin/Globulin Ratio 1.31 Ratio (1.60-3.17); Alkaline Phosphatase 101 U/L (41-126); BUN/Creat Ratio 11.88 Ratio (12.00-20.00); Blood Urea Nitrogen 9.5 mg/dL (9.0-27.0); Calcium 8.8 mg/dL (8.7-10.3); Carbon Dioxide 24.6 mmol/L (21.6-31.8); Chloride 101 mmol/L (96-109); Globulin 2.6 g/dL (1.6-3.3); Glucose 144 mg/dL (70-110); Sodium 142 mmol/L (135-145); Total Bilirubin 0.5 mg/dL (0.3-1.2)
--- NOTE | 2024-10-17 11:33 | P.PN ---
Subjective Progress Note Date: 10/17/24 Patient was seen and evaluated at bedside today. Patient denies any abdominal pain at this time. Denies nausea, vomiting, fever, chills, shortness of breath or chest pain. Objective - Vital Signs Vital signs: Vital Signs Temp 97.7 F 10/17/24 07:00 Pulse 59 L 10/17/24 07:00 Resp 18 10/17/24 07:00 BP 159/69 10/17/24 07:00 Pulse Ox 97 10/17/24 07:00 FiO2 Intake & Output 10/16/24 10/17/24 10/17/24 18:59 06:59 18:59 Intake Total 236 240 Output Total 1750 300 Balance -1514 -300 240 Intake: Oral 236 240 Output: Urine 1750 300 Other: Voiding Method Urinal Urinal External Catheter # Bowel Movements 0 1 - Exam General No acute distress Cardiovascular regular rate and rhythm Pulmonary nonlabored breathing Abdomen soft nontender to palpation nondistended, no guarding or rebound tenderness - Labs CBC & Chem 7: 10/17/24 05:45 10/17/24 05:45 Labs: Abnormal Lab Results - Last 24 Hours (Table) 10/17/24 Range/Units 05:45 WBC 15.32 H (4.50-10.00) X 10*3/uL Immature Gran # 0.09 H (0.00-0.04) X 10*3/uL Neutrophils # 13.08 H (1.80-7.70) X 10*3/uL Monocytes # 1.04 H (0.20-1.00) X 10*3/uL Microbiology - Last 24 Hours (Table) 10/15/24 09:02 Blood Culture - Preliminary Blood Assessment and Plan Assessment: 89-year-old male with improving cholecystitis Continue IV antibiotics Pending a.m. labs Per cardiology, patient is at intermediate risk for perioperative cardiovascular risk due to underlying aortic stenosis. No absolute contraindications. Time with Patient: Less than 30
[2024-10-17] MEDS: PROCHLORPERAZINE INJ 10 MG/2 ML VIAL IVP PRN (11:42)
--- NOTE | 2024-10-17 19:56 | P.PN ---
Subjective Progress Note Date: 10/17/24 On 10/17/2024, the patient is being seen for a follow-up. Resting comfortably in bed. No new complaints. Diagnosed having aortic stenosis and a cardiology clearance was also given with understanding that the patient carries an increased risk of developing postoperative complications based on presence of valvular heart disease and moderate severe aortic stenosis. Pulmonary clearance was given earlier. Afebrile. Hemodynamically stable on 2 L of oxygen by nasal cannula. Remains on IV antibiotics. No nausea or emesis. No chest pain. The white cell count is currently at 15 with a hemoglobin 13.7 and a platelet count of 329. Electrolytes are all within normal limits. LFTs were noted and the p atient has AST of 61, ALT of 60 and alkaline phosphatase of 101. Afebrile for now. Objective - Vital Signs Vital signs: Vital Signs Temp 98.1 F 10/17/24 15:00 Pulse 71 10/17/24 15:00 Resp 18 10/17/24 15:00 BP 156/66 10/17/24 15:00 Pulse Ox 96 10/17/24 15:00 FiO2 Intake & Output 10/17/24 10/17/24 10/18/24 06:59 18:59 06:59 Intake Total 358 Output Total 300 350 Balance -300 8 Intake: Oral 358 Output: Urine 300 350 Other: Voiding Method Urinal External Catheter # Bowel Movements 0 1 - Exam GENERAL EXAM: Alert, 89-year-old white male, comfortable in no apparent distress. Currently on 2 L of oxygen by nasal cannula HEAD: Normocephalic and atraumatic EYES: Normal reaction of pupils, equal size. NOSE: Clear with pink turbinates. THROAT: No erythema or exudates. NECK: No masses, no JVD. CHEST: No chest wall deformity. LUNGS: Equal air entry with no crackles, wheeze, rhonchi or dullness. No conversational dyspnea or accessory muscle use.. CVS: S1 and S2 normal with n a systolic ejection murmur over the apex, regular rhythm. No extra heart sounds ABDOMEN: Obese abdomen, active bowel sounds, soft, positive Corcoran, no hepatosplenomegaly or masses. SPINE: No scoliosis or deformity SKIN: No rashes CENTRAL NERVOUS SYSTEM: No focal deficits, tone is normal in all 4 extremities. EXTREMITIES: There is no peripheral edema, clubbing, or cyanosis. Peripheral pulses are intact. - Labs CBC & Chem 7: 10/17/24 05:45 10/17/24 05:45 Labs: Abnormal Lab Results - Last 24 Hours (Table) 10/17/24 10/17/24 Range/Units 05:45 05:45 WBC 15.32 H (4.50-10.00) X 10*3/uL Immature Gran # 0.09 H (0.00-0.04) X 10*3/uL Neutrophils # 13.08 H (1.80-7.70) X 10*3/uL Monocytes # 1.04 H (0.20-1.00) X 10*3/uL Anion Gap 16.40 H (4.00-12.00) mmol/L BUN/Creatinine Ratio 11.88 L (12.00-20.00) Ratio Glucose 144 H (70-110) mg/dL AST 61 H (14-35) U/L ALT 60 H (10-49) U/L Total Protein 6.0 L (6.2-8.2) g/dL Albumin 3.4 L (3.8-4.9) g/dL Albumin/Globulin Ratio 1.31 L (1.60-3.17) Ratio Microbiology - Last 24 Hours (Table) 10/15/24 09:02 Blood Culture - Preliminary Blood Assessment and Plan Assessment: Acute cholecystitis with cholelithiasis, Ultrasound of the gallbladder demonstrating cholecystolithiasis with pericholecystic fluid and gallbladder wall thickening. LFTs are mildly abnormal. The patient remains on IV Zosyn. General surgery is on the case Acute leukocytosis, likely secondary to above Abdominal pain, secondary to above, improved Left lower lobe atelectasis versus pneumonia Moderate severe aortic stenosis Hypertension History of hyperlipidemia History of paroxysmal atrial fibrillation, currently sinus mechanism Memory impairment, takes Aricept on outpatient basis Plan: Elderly 89-year-old male patient with right upper quadrant pain and ultrasound the gallbladder showed cholelithiasis and pericholecystic fluid consistent with acute cholecystitis. The patient has some mild leukocytosis with mild disturbance of the LFTs and normal bilirubin. Overall respiratory status is stable. The patient is currently on 2 L of oxygen by nasal cannula with pulse ox 94%. Pulmonary services were requested for a preoperative pulmonary clearance. No contraindications from the pulmonary standpoint. Cardiology input is appreciated. Echocardiogram was done and this was a technically difficult study. The patient has normal LV, moderate to severe aortic stenosis with a mean gradient of 25. Ejection fraction of 55 to 60% and moderate degree of pulmonary hypertension. Awaiting final recommendations from general surgeon regarding surgery
--- NOTE | 2024-10-18 05:55 | P.PN ---
Subjective Progress Note Date: 10/17/24 Patient is a pleasant 89 years old male with multiple medical problems as below. Presents because of abdominal pain. Information were obtained with the help of 2 female family members including at bedside. Patient presents with abdominal pain which she described as severe in the right upper quadrant radiating up to the right shoulder. Associated with rigidity in his abdomen on touch. Pain is sharp associated with low appetite. With no diarrhea. Patient also reports falling about 1 week earlier. Patient also complaining from little shortness of breath with little coughing but no overt chest pain No urinary complaint, no headache dizziness weakness or numbness Patient is afebrile currently, here and there he has mild grade temperature of 99.2, is slightly tachypneic RR 20/min, blood pressure is stable and he is saturating 93% on 2 to 3 L oxygen via nasal cannula. He has leukocytosis with 16.8. Rest of CBC, BMP is unremarkable Urine sample was concentrated CT of the abdomen and pelvis showing left lower lobe infiltrate and gallbladder findings suspicious for acute cholecystitis with associated possible duodenitis EKG shows sinus rhythm at [address]-T changes but there is evidence of first-degree AV block, I reviewed the EKG by myself and there is a P wave rather than F-wave. Patient is admitted with surgical team consultation. I discussed the case with surgery team given his comorbidity the surgeon felt patient is high risk for procedure and was considering cholecystostomy as an alternative plan however IR service are not available this week to perform such procedure. At this time patient admitted to the general medical floor with close monitoring. 10/16/2024 Patient is seen and evaluated in follow-up with general surgery and cardiology following. Patient tentatively scheduled to undergo cholecystectomy awaiting cardiology clearance given significant history. Patient does not have history of A-fib but does have other cardiac issues including heart failure. Patient was continued on IV hydration which has been discontinued and will give a dose of Lasix. Patient would be considered moderate to high risk although relatively stable I would like to proceed with the surgery. Currently awaiting 2D echo at this time. 10/17/2024 Patient is seen in follow-up today actively having right upper quadrant pain and vomiting at this time. Patient is continued on 2 L via nasal cannula denies shortness of breath or chest pains. Patient is having some dyspepsia and will continue IV Protonix twice daily. General surgery following and was awaiting cardiac clearance for surgical intervention. Given patient's age and comorbidities patient is moderate risk although continues to be symptomatic, would recommend proceeding with surgical intervention at this time. Patient and family at the bedside are agreeable with moving forward with surgery. Review of systems: Constitutional: No reports of fatigue, fever, or chills Cardiovascular: No reports of chest pain or palpitations Respiratory: No reports of shortness of breath or cough GI: reports of nausea, reports 2 episodes of vomiting, no diarrhea, reports abdominal tenderness in the right upper quadrant : No reports of dysuria or retention Neurovascular: No reports of weakness or numbness All medications have been reviewed Physical exam: GENERAL: The patient is alert and oriented x3, currently vomiting on exam. Well developed, elderly appearing, ill-appearing HEENT: Pupils are round and equally reacting to light. EOMI. No scleral icterus. No conjunctival pallor. Normocephalic, atraumatic. No pharyngeal erythema. No thyromegaly. CARDIOVASCULAR: S1 and S2 present. No murmurs, rubs, or gallops. -PULMONARY: Diminished breath sounds bilaterally otherwise chest is clear to auscultation, no wheezing , no crackles. Mildly tachypneic ABDOMEN: Soft, RUQ tenderness with deep palpation, no rebound tenderness, nondistended, normoactive bowel sounds. No palpable organomegaly. MUSCULOSKELETAL: No joint swelling or deformity. EXTREMITIES: No cyanosis, clubbing, or pedal edema. NEUROLOGICAL: Gross neurological examination did not reveal any focal deficits. Diffusely weak SKIN: No rashes. no petechiae. Assessment: Acute cholecystitis, tentatively scheduled for cholecystectomy and awaiting cardiac clearance Left lower lobe pneumonia, present on admission Acute hypoxic respiratory failure, secondary to above Sepsis with tachypnea, leukocytosis and mild fever, present on admission, possibly secondary to acute cholecystitis Generalized weakness with recent fall at home GI prophylaxis DVT prophylaxis Full code Plan: Continue with Zosyn Cultures thus far negative General Surgery following and tentatively scheduled for cholecystectomy. D iscussion of cholecystostomy tube although no physician available until late October at this facility Cardiology has evaluated the patient and patient is moderate risk of surgical intervention and risks versus benefits including was explained and patient and family at the bedside are willing to proceed with surgery. Given patient's age and significant comorbidities, would place the patient at moderate to high risk for surgical intervention although patient is relatively stable and would like to proceed with surgical intervention. General surgery to reevaluate this afternoon The impression and plan of care has been dictated by Yesy Tierney, Nurse Practitioner as directed. Dr. Isis MD I have performed a history and examination and MDM of this patient, discussed th e same with the dictator, and agree with the dictator's assessment and plan as written ,documented as a scribe. Based on total visit time, I have performed more than 50% of the visit. Objective - Vital Signs Vital signs: Vital Signs Temp 97.5 F L 10/17/24 20:00 Pulse 79 10/17/24 20:00 Resp 17 10/17/24 20:00 BP 129/67 10/17/24 20:00 Pulse Ox 97 10/17/24 20:00 FiO2 Intake & Output 10/17/24 10/17/24 10/18/24 06:59 18:59 06:59 Intake Total 358 Output Total 300 350 400 Balance -300 8 -400 Intake: Oral 358 Output: Urine 300 350 400 Other: Voiding Method Urinal External Catheter External Catheter # Bowel Movements 0 1 - Labs CBC & Chem 7: 10/17/24 05:45 10/17/24 05:45 Labs: Abnormal Lab Results - Last 24 Hours (Table) 10/17/24 10/17/24 Range/Units 05:45 05:45 WBC 15.32 H (4.50-10.00) X 10*3/uL Immature Gran # 0.09 H (0.00-0.04) X 10*3/uL Neutrophils # 13.08 H (1.80-7.70) X 10*3/uL Monocytes # 1.04 H (0.20-1.00) X 10*3/uL Anion Gap 16.40 H (4.00-12.00) mmol/L BUN/Creatinine Ratio 11.88 L (12.00-20.00) Ratio Glucose 144 H (70-110) mg/dL AST 61 H (14-35) U/L ALT 60 H (10-49) U/L Total Protein 6.0 L (6.2-8.2) g/dL Albumin 3.4 L (3.8-4.9) g/dL Albumin/Globulin Ratio 1.31 L (1.60-3.17) Ratio Microbiology - Last 24 Hours (Table) 10/15/24 09:02 Blood Culture - Preliminary Blood
[2024-10-18 10:47] LABS: Basophils # (A) 0.06 X 10*3/uL (0.00-0.10); Basophils % (A) 0.3 %; Eosinophils # (A) 0.27 X 10*3/uL (0.04-0.35); Eosinophils % (A) 1.5 %; HCT 42.1 % (39.6-50.0); HGB 13.4 g/dL (13.0-17.0); Lymphocytes # (A) 1.09 X 10*3/uL (0.90-5.00); Lymphocytes % (A) 6.2 %; MCH 29.1 pg (27.0-32.0); MCHC 31.8 g/dL (32.0-37.0); MCV 91.3 FL (80.0-97.0); Mean Platelet Volume 9.5 FL (9.5-12.2); Monocytes # (A) 1.18 X 10*3/uL (0.20-1.00); Monocytes % (A) 6.7 %; NRBC Per 100 WBC 0 X 10*3/uL (0.00-0.01); Neutrophils # (A) 14.85 X 10*3/uL (1.80-7.70); Neutrophils % (A) 84.3 %; Platelet Count 385 X 10*3/uL (140-440); RBC 4.61 X 10*6/uL (4.40-5.60); RDW 12.7 % (11.5-14.5); WBC 17.62 X 10*3/uL (4.50-10.00)
[2024-10-18 11:01] LABS: ALT 56 U/L (10-49); AST 47 U/L (14-35); Albumin 3.2 g/dL (3.8-4.9); Albumin/Globulin Ratio 1.33 Ratio (1.60-3.17); Alkaline Phosphatase 102 U/L (41-126); BUN/Creat Ratio 10.62 Ratio (12.00-20.00); Bilirubin, Conjugated 0.27 mg/dL (0.20-0.40); Bilirubin,Unconjugated 0.23 mg/dL (0.20-1.00); Blood Urea Nitrogen 8.5 mg/dL (9.0-27.0); Calcium 8.7 mg/dL (8.7-10.3); Carbon Dioxide 29.7 mmol/L (21.6-31.8); Chloride 99 mmol/L (96-109); Globulin 2.4 g/dL (1.6-3.3); Glucose 110 mg/dL (70-110); Magnesium 1.9 mg/dL (1.5-2.4); Potassium 3.7 mmol/L (3.5-5.5); Sodium 139 mmol/L (135-145); Total Bilirubin 0.5 mg/dL (0.3-1.2); Total Protein 5.6 g/dL (6.2-8.2)
--- NOTE | 2024-10-18 14:41 | P.PN ---
Subjective Progress Note Date: 10/18/24 SURGICAL PROGRESS NOTE CHIEF COMPLAINT: Acute cholecystitis HISTORY OF PRESENT ILLNESS: Patient was able to tolerate breakfast this morning. He feels a little better. Denies any nausea or vomiting. Patient and would like to proceed with gallbladder surgery. Afebrile. WBC is up from 15-17 total bilirubin 0.5 AST is down from 61-47 ALT 60 down to 56 alk phos 102 PHYSICAL EXAM: VITAL SIGNS: Reviewed. GENERAL: Well-developed in no acute distress. ABDOMEN: Soft. Nondistended. NEUROLOGIC: Alert and oriented. Cranial nerves II through XII grossly intact. ASSESSMENT: 1. Acute cholecystitis with right upper quadrant abdominal pain. Gallbladder ultrasound reporting cholelithiasis with pericholecystic fluid and gallbladder wall thickening PLAN: -Patient scheduled for laparoscopic cholecystectomy tomorrow with Dr. Montalvo -N.p.o. after midnight -Continue antibiotics -Continue supportive care -Per cardiology patient is intermediate risk for perioperative cardiovascular risk due to aortic stenosis. No absolute contraindication. -Pulmonary service has cleared patient for surgery. [employer] note has been reviewed by physician. Signing provider agrees with the documented findings, assessment, and plan of care. Objective - Vital Signs Vital signs: Vital Signs Temp 97.9 F 10/18/24 07:05 Pulse 60 10/18/24 07:05 Resp 18 10/18/24 07:05 BP 152/67 10/18/24 07:05 Pulse Ox 95 10/18/24 07:05 FiO2 Intake & Output 10/17/24 10/18/24 10/18/24 18:59 06:59 18:59 Intake Total 358 240 Output Total 350 400 Balance 8 -400 240 Intake: Oral 358 240 Output: Urine 350 400 Other: Voiding Method External Catheter External Catheter # Bowel Movements 1 0 - Labs CBC & Chem 7: 10/18/24 05:41 10/18/24 05:41 Labs: Abnormal Lab Results - Last 24 Hours (Table) 10/17/24 Range/Units 05:45 Anion Gap 16.40 H (4.00-12.00) mmol/L BUN/Creatinine Ratio 11.88 L (12.00-20.00) Ratio Glucose 144 H (70-110) mg/dL AST 61 H (14-35) U/L ALT 60 H (10-49) U/L Total Protein 6.0 L (6.2-8.2) g/dL Albumin 3.4 L (3.8-4.9) g/dL Albumin/Globulin Ratio 1.31 L (1.60-3.17) Ratio Microbiology - Last 24 Hours (Table) 10/15/24 09:02 Blood Culture - Preliminary Blood Assessment and Plan Assessment: OR this weekend Time with Patient: Greater than 30
--- NOTE | 2024-10-18 16:27 | P.PN ---
Subjective Progress Note Date: 10/18/24 On 10/17/2024, the patient is being seen for a follow-up. Resting comfortably in bed. No new complaints. Diagnosed having aortic stenosis and a cardiology clearance was also given with understanding that the patient carries an increased risk of developing postoperative complications based on presence of valvular heart disease and moderate severe aortic stenosis. Pulmonary clearance was given earlier. Afebrile. Hemodynamically stable on 2 L of oxygen by nasal cannula. Remains on IV antibiotics. No nausea or emesis. No chest pain. The white cell count is currently at 15 with a hemoglobin 13.7 and a platelet count of 329. Electrolytes are all within normal limits. LFTs were noted and the p atient has AST of 61, ALT of 60 and alkaline phosphatase of 101. Afebrile for now. On 10/18/2024, the patient is being seen for a follow-up. No new complaints. The patient is acute cholecystitis with right upper quadrant pain and ultrasound the gallbladder was consistent with cholecystitis. The patient will be kept n.p.o. after midnight and the patient will be scheduled to undergo a laparoscop ic cholecystectomy by Dr. Montalvo in AM. The patient remains on IV antibiotics. White cell count is at 17, it was 13.4, electrolytes are all within normal limits. LFTs show an AST of 47, ALT of 56 with an alkaline phosphatase of 102. Albumin level is at 3.2. Objective - Vital Signs Vital signs: Vital Signs Temp 97.9 F 10/18/24 07:05 Pulse 60 10/18/24 07:05 Resp 18 10/18/24 07:05 BP 152/67 10/18/24 07:05 Pulse Ox 95 10/18/24 07:05 FiO2 Intake & Output 10/17/24 10/18/24 10/18/24 18:59 06:59 18:59 Intake Total 358 480 Output Total 350 400 Balance 8 -400 480 Intake: Oral 358 480 Output: Urine 350 400 Other: Voiding Method External Catheter External Catheter # Bowel Movements 1 0 1 - Exam GENERAL EXAM: Alert, 89-year-old white male, comfortable in no apparent distress. Currently on 2 L of oxygen by nasal cannula HEAD: Normocephalic and atraumatic EYES: Normal reaction of pupils, equal size. NOSE: Clear with pink turbinates. THROAT: No erythema or exudates. NECK: No masses, no JVD. CHEST: No chest wall deformity. LUNGS: Equal air entry with no crackles, wheeze, rhonchi or dullness. No conversational dyspnea or accessory muscle use.. CVS: S1 and S2 normal with n a systolic ejection murmur over the apex, regular rhythm. No extra heart sounds ABDOMEN: Obese abdomen, active bowel sounds, soft, positive Corcoran, no hepatosplenomegaly or masses. SPINE: No scoliosis or deformity SKIN: No rashes CENTRAL NERVOUS SYSTEM: No focal deficits, tone is normal in all 4 extremities. EXTREMITIES: There is no peripheral edema, clubbing, or cyanosis. Peripheral pulses are intact. - Labs CBC & Chem 7: 10/18/24 05:41 10/18/24 05:41 Labs: Abnormal Lab Results - Last 24 Hours (Table) 10/18/24 10/18/24 Range/Units 05:41 05:41 WBC 17.62 H (4.50-10.00) X 10*3/uL MCHC 31.8 L (32.0-37.0) g/dL Immature Gran # 0.17 H (0.00-0.04) X 10*3/uL Neutrophils # 14.85 H (1.80-7.70) X 10*3/uL Monocytes # 1.18 H (0.20-1.00) X 10*3/uL BUN 8.5 L (9.0-27.0) mg/dL BUN/Creatinine Ratio 10.62 L (12.00-20.00) Ratio AST 47 H (14-35) U/L ALT 56 H (10-49) U/L Total Protein 5.6 L (6.2-8.2) g/dL Albumin 3.2 L (3.8-4.9) g/dL Albumin/Globulin Ratio 1.33 L (1.60-3.17) Ratio Microbiology - Last 24 Hours (Table) 10/15/24 09:02 Blood Culture - Preliminary Blood Assessment and Plan Assessment: Acute cholecystitis with cholelithiasis, Ultrasound of the gallbladder demonstrating cholecystolithiasis with pericholecystic fluid and gallbladder wall thickening. LFTs are mildly abnormal. The patient remains on IV Zosyn. General surgery is on the case Acute leukocytosis, likely secondary to above, white cell count remains elevated Abdominal pain, secondary to above, improved Left lower lobe atelectasis versus pneumonia Moderate severe aortic stenosis Hypertension History of hyperlipidemia History of paroxysmal atrial fibrillation, currently sinus mechanism Memory impairment, takes Aricept on outpatient basis Plan: Elderly 89-year-old male patient with right upper quadrant pain and ultrasound the gallbladder showed cholelithiasis and pericholecystic fluid consistent with acute cholecystitis. The patient has some mild leukocytosis with mild disturbance of the LFTs and normal bilirubin. Overall respiratory status is stable. The patient is currently on 2 L of oxygen by nasal cannula with pulse ox 94%. Pulmonary services were requested for a preoperative pulmonary clearance. No contraindications from the pulmonary standpoint. Cardiology input is appreciated. Echocardiogram was done and this was a technically difficult study. The patient has normal LV, moderate to severe aortic stenosis with a mean gradient of 25. Ejection fraction of 55 to 60% and moderate degree of pulmonary hypertension. N.p.o. after midnight Laparoscopic cholecystectomy in a.m.
--- NOTE | 2024-10-19 06:09 | P.PN ---
Subjective Progress Note Date: 10/18/24 Patient is a pleasant 89 years old male with multiple medical problems as below. Presents because of abdominal pain. Information were obtained with the help of 2 female family members including at bedside. Patient presents with abdominal pain which she described as severe in the right upper quadrant radiating up to the right shoulder. Associated with rigidity in his abdomen on touch. Pain is sharp associated with low appetite. With no diarrhea. Patient also reports falling about 1 week earlier. Patient also complaining from little shortness of breath with little coughing but no overt chest pain No urinary complaint, no headache dizziness weakness or numbness Patient is afebrile currently, here and there he has mild grade temperature of 99.2, is slightly tachypneic RR 20/min, blood pressure is stable and he is saturating 93% on 2 to 3 L oxygen via nasal cannula. He has leukocytosis with 16.8. Rest of CBC, BMP is unremarkable Urine sample was concentrated CT of the abdomen and pelvis showing left lower lobe infiltrate and gallbladder findings suspicious for acute cholecystitis with associated possible duodenitis EKG shows sinus rhythm at [address]-T changes but there is evidence of first-degree AV block, I reviewed the EKG by myself and there is a P wave rather than F-wave. Patient is admitted with surgical team consultation. I discussed the case with surgery team given his comorbidity the surgeon felt patient is high risk for procedure and was considering cholecystostomy as an alternative plan however IR service are not available this week to perform such procedure. At this time patient admitted to the general medical floor with close monitoring. 10/16/2024 Patient is seen and evaluated in follow-up with general surgery and cardiology following. Patient tentatively scheduled to undergo cholecystectomy awaiting cardiology clearance given significant history. Patient does not have history of A-fib but does have other cardiac issues including heart failure. Patient was continued on IV hydration which has been discontinued and will give a dose of Lasix. Patient would be considered moderate to high risk although relatively stable I would like to proceed with the surgery. Currently awaiting 2D echo at this time. 10/17/2024 Patient is seen in follow-up today actively having right upper quadrant pain and vomiting at this time. Patient is continued on 2 L via nasal cannula denies shortness of breath or chest pains. Patient is having some dyspepsia and will continue IV Protonix twice daily. General surgery following and was awaiting cardiac clearance for surgical intervention. Given patient's age and comorbidities patient is moderate risk although continues to be symptomatic, would recommend proceeding with surgical intervention at this time. Patient and family at the bedside are agreeable with moving forward with surgery. 10/18/2024 Patient is seen in follow-up today with general surgery following and has been evaluated by pulmonary as well as cardiology and although moderate risk has been cleared for surgery. Plan for gallbladder removal on 10/19/[address] Montalvo. Patient is tolerating low fiber diet and will be NPO at midnight. Will repeat am labs and continue supportive care. Recommend incentive spirometer use now. Review of systems: Constitutional: No reports of fatigue, fever, or chills Cardiovascular: No reports of chest pain or palpitations Respiratory: No reports of shortness of breath or cough GI: reports of occasional nausea although improved with nausea medications, no further episodes of vomiting today, no diarrhea, reports abdominal tenderness in the right upper quadrant : No reports of dysuria or retention Neurovascular: No reports of weakness or numbness All medications have been reviewed Physical exam: GENERAL: The patient is alert and oriented x3, Well developed, elderly appearing, ill-appearing HEENT: Pupils are round and equally reacting to light. EOMI. No scleral icterus. No conjunctival pallor. Normocephalic, atraumatic. No pharyngeal erythema. No thyromegaly. CARDIOVASCULAR: S1 and S2 present. No murmurs, rubs, or gallops. -PULMONARY: Diminished breath sounds bilaterally otherwise chest is clear to auscultation, no wheezing , no crackles. Mildly tachypneic ABDOMEN: Soft, RUQ tenderness with deep palpation, no rebound tenderness, nondistended, normoactive bowel sounds. No palpable organomegaly. MUSCULOSKELETAL: No joint swelling or deformity. EXTREMITIES: No cyanosis, clubbing, or pedal edema. NEUROLOGICAL: Gross neurological examination did not reveal any focal deficits. Diffusely weak SKIN: No rashes. no petechiae. Assessment: Acute cholecystitis, tentatively scheduled for cholecystectomy 10/19/24 Left lower lobe pneumonia, present on admission Acute hypoxic respiratory failure, secondary to above Sepsis with tachypnea, leukocytosis and mild fever, present on admission, likely secondary to acute cholecystitis Generalized weakness with recent fall at home GI prophylaxis DVT prophylaxis Full code Plan: Continue with Zosyn Cultures thus far negative General Surgery following and tentatively scheduled for cholecystectomy 10/19. Recommend incentive spirometer and education on proper use. Cardiology has evaluated the patient and patient is moderate risk of surgical intervention and risks versus benefits including was explained and patient and family at the bedside are willing to proceed with surgery. Cardio has signed off Given patient's age and significant comorbidities, would place the patient at moderate to high risk for surgical intervention although patient is relatively stable and would like to proceed with surgical intervention. Patient will be NPO at midnight. Follow up on repeat labs in am. The impression and plan of care has been dictated by Yesy Tierney, Nurse Practitioner as directed. Dr. Isis MD I have performed a history and examination and MDM of this patient, discussed the same with the dictator, and agree with the dictator's assessment and plan as written ,documented as a scribe. Based on total visit time, I have performed more than 50% of the visit. Objective - Vital Signs Vital signs: Vital Signs Temp 97.9 F 10/18/24 07:05 Pulse 60 10/18/24 07:05 Resp 18 10/18/24 07:05 BP 152/67 10/18/24 07:05 Pulse Ox 95 10/18/24 07:05 FiO2 Intake & Output 10/17/24 10/18/24 10/18/24 18:59 06:59 18:59 Intake Total 358 240 Output Total 350 400 Balance 8 -400 240 Intake: Oral 358 240 Output: Urine 350 400 Other: Voiding Method External Catheter External Catheter # Bowel Movements 1 0 - Labs CBC & Chem 7: 10/18/24 05:41 10/18/24 05:41 Labs: Abnormal Lab Results - Last 24 Hours (Table) 10/17/24 Range/Units 05:45 Anion Gap 16.40 H (4.00-12.00) mmol/L BUN/Creatinine Ratio 11.88 L (12.00-20.00) Ratio Glucose 144 H (70-110) mg/dL AST 61 H (14-35) U/L ALT 60 H (10-49) U/L Total Protein 6.0 L (6.2-8.2) g/dL Albumin 3.4 L (3.8-4.9) g/dL Albumin/Globulin Ratio 1.31 L (1.60-3.17) Ratio Microbiology - Last 24 Hours (Table) 10/15/24 09:02 Blood Culture - Preliminary Blood
[2024-10-19 06:47] LABS: Basophils # (A) 0.1 k/uL (0-0.2); Basophils % (A) 0 %; Eosinophils # (A) 0.4 k/uL (0-0.7); Eosinophils % (A) 3 %; HCT 42.7 % (39.0-53.0); HGB 13.7 gm/dL (13.0-17.5); Lymphocytes % (A) 7 %; MCH 29.5 pg (25.0-35.0); MCHC 32.1 g/dL (31.0-37.0); MCV 91.7 fL (80.0-100.0); Mean Platelet Volume 6.9; Monocytes # (A) 0.8 k/uL (0-1.0); Monocytes % (A) 6 %; Neutrophils # (A) 12.2 k/uL (1.3-7.7); Neutrophils % (A) 84 %; Platelet Count 396 k/uL (150-450); RBC 4.66 m/uL (4.30-5.90); RDW 12.7 % (11.5-15.5); WBC 14.5 k/uL (3.8-10.6)
[2024-10-19 06:57] LABS: ALT 57 U/L (4-49); AST 52 U/L (17-59); African American GFR (CKD) >90 (>60 ml/min/1.73 sqM); Albumin/Globulin Ratio 1.2; Alkaline Phosphatase 97 U/L (38-126); Anion Gap 5 mmol/L; Blood Urea Nitrogen 9 mg/dL (9-20); Calcium 8.5 mg/dL (8.4-10.2); Carbon Dioxide 34 mmol/L (22-30); Chloride 96 mmol/L (98-107); Globulin 2.6 g/dL; Glucose 102 mg/dL (74-99); Non-African American GFR(CKD) 84 (>60 ml/min/1.73 sqM); Potassium 3.8 mmol/L (3.5-5.1); Sodium 135 mmol/L (137-145); Total Bilirubin 0.7 mg/dL (0.2-1.3); Total Protein 5.6 g/dL (6.3-8.2)
--- NOTE | 2024-10-19 13:47 | XR ---
EXAMINATION TYPE: XR chest 1V DATE OF EXAM: 10/19/2024 12:53 PM COMPARISON: 10/16/2024 CLINICAL INDICATION: Male, 89 years old with history of chf, TECHNIQUE: XR chest 1V view(s) obtained. FINDINGS: The heart size is normal. The pulmonary vasculature is normal. Some mild linear opacity at the left base may be some plate atelectasis.. Previous diffuse increased lung markings have resolved IMPRESSION: 1. There appears to be resolution of previous congestive heart failure. 2. Some platelike atelectasis is at the left base. [facility], , 10/19/2024 1:44 PM
--- NOTE | 2024-10-19 15:27 | P.PN ---
Subjective Progress Note Date: 10/19/24 On 10/17/2024, the patient is being seen for a follow-up. Resting comfortably in bed. No new complaints. Diagnosed having aortic stenosis and a cardiology clearance was also given with understanding that the patient carries an increased risk of developing postoperative complications based on presence of valvular heart disease and moderate severe aortic stenosis. Pulmonary clearance was given earlier. Afebrile. Hemodynamically stable on 2 L of oxygen by nasal cannula. Remains on IV antibiotics. No nausea or emesis. No chest pain. The white cell count is currently at 15 with a hemoglobin 13.7 and a platelet count of 329. Electrolytes are all within normal limits. LFTs were noted and the p atient has AST of 61, ALT of 60 and alkaline phosphatase of 101. Afebrile for now. On 10/18/2024, the patient is being seen for a follow-up. No new complaints. The patient is acute cholecystitis with right upper quadrant pain and ultrasound the gallbladder was consistent with cholecystitis. The patient will be kept n.p.o. after midnight and the patient will be scheduled to undergo a laparoscop ic cholecystectomy by Dr. Montalvo in AM. The patient remains on IV antibiotics. White cell count is at 17, it was 13.4, electrolytes are all within normal limits. LFTs show an AST of 47, ALT of 56 with an alkaline phosphatase of 102. Albumin level is at 3.2. 10/19/2024, no new complaints. Afebrile. Room air oxygen with a pulse ox of 95%. Awaiting a laparoscopic cholecystectomy. White cell count is 14 with a heme of 13.7. Electrolytes are stable and within normal limits. LFTs are unchanged. General surgery is on the case. Remains on IV Zosyn. Objective - Vital Signs Vital signs: Vital Signs Temp 97.6 F 10/19/24 15:00 Pulse 70 10/19/24 15:00 Resp 17 10/19/24 15:00 BP 139/69 10/19/24 15:00 Pulse Ox 95 10/19/24 15:00 FiO2 Intake & Output 10/18/24 10/19/24 10/19/24 18:59 06:59 18:59 Intake Total 480 118 Output Total 450 300 Balance 30 -300 118 Intake: Oral 480 118 Output: Urine 450 300 Other: # Voids 3 # Bowel Movements 1 1 - Exam GENERAL EXAM: Alert, 89-year-old white male, comfortable in no apparent distress. Currently on 2 L of oxygen by nasal cannula HEAD: Normocephalic and atraumatic EYES: Normal reaction of pupils, equal size. NOSE: Clear with pink turbinates. THROAT: No erythema or exudates. NECK: No masses, no JVD. CHEST: No chest wall deformity. LUNGS: Equal air entry with no crackles, wheeze, rhonchi or dullness. No conversational dyspnea or accessory muscle use.. CVS: S1 and S2 normal with n a systolic ejection murmur over the apex, regular rhythm. No extra heart sounds ABDOMEN: Obese abdomen, active bowel sounds, soft, positive Corcoran, no hepatosplenomegaly or masses. SPINE: No scoliosis or deformity SKIN: No rashes CENTRAL NERVOUS SYSTEM: No focal deficits, tone is normal in all 4 extremities. EXTREMITIES: There is no peripheral edema, clubbing, or cyanosis. Peripheral pulses are intact. - Labs CBC & Chem 7: 10/19/24 06:10 10/19/24 06:10 Labs: Abnormal Lab Results - Last 24 Hours (Table) 10/19/24 10/19/24 Range/Units 06:10 06:10 WBC 14.5 H (3.8-10.6) k/uL Neutrophils # 12.2 H (1.3-7.7) k/uL Sodium 135 L (137-145) mmol/L Chloride 96 L (98-107) mmol/L Carbon Dioxide 34 H (22-30) mmol/L Glucose 102 H (74-99) mg/dL ALT 57 H (4-49) U/L Total Protein 5.6 L (6.3-8.2) g/dL Albumin 3.0 L (3.5-5.0) g/dL Microbiology - Last 24 Hours (Table) 10/15/24 09:02 Blood Culture - Preliminary Blood Assessment and Plan Assessment: Acute cholecystitis with cholelithiasis, Ultrasound of the gallbladder demonstrating cholecystolithiasis with pericholecystic fluid and gallbladder wall thickening. LFTs are mildly abnormal. The patient remains on IV Zosyn. General surgery is on the case Acute leukocytosis, likely secondary to above, white cell count remains elevated Abdominal pain, secondary to above, improved Left lower lobe atelectasis versus pneumonia Moderate severe aortic stenosis Hypertension History of hyperlipidemia History of paroxysmal atrial fibrillation, currently sinus mechanism Memory impairment, takes Aricept on outpatient basis Plan: Elderly 89-year-old male patient with right upper quadrant pain and ultrasound the gallbladder showed cholelithiasis and pericholecystic fluid consistent with acute cholecystitis. The patient has some mild leukocytosis with mild disturbance of the LFTs and normal bilirubin. Overall respiratory status is stable. The patient is currently on 2 L of oxygen by nasal cannula with pulse ox 94%. Pulmonary services were requested for a preoperative pulmonary clearance. No contraindications from the pulmonary standpoint. Cardiology input is appreciated. Echocardiogram was done and this was a technically difficult study. The patient has normal LV, moderate to severe aortic stenosis with a mean gradient of 25. Ejection fraction of 55 to 60% and moderate degree of pulmonary hypertension. Proceed with cholecystectomy per general surgery Pulmonary clearance was given Contact us back should there be any patient is postop.
--- NOTE | 2024-10-19 20:18 | P.PN ---
Subjective Progress Note Date: 10/19/24 Patient is a pleasant 89 years old male with multiple medical problems as below. Presents because of abdominal pain. Information were obtained with the help of 2 female family members including at bedside. Patient presents with abdominal pain which she described as severe in the right upper quadrant radiating up to the right shoulder. Associated with rigidity in his abdomen on touch. Pain is sharp associated with low appetite. With no diarrhea. Patient also reports falling about 1 week earlier. Patient also complaining from little shortness of breath with little coughing but no overt chest pain No urinary complaint, no headache dizziness weakness or numbness Patient is afebrile currently, here and there he has mild grade temperature of 99.2, is slightly tachypneic RR 20/min, blood pressure is stable and he is saturating 93% on 2 to 3 L oxygen via nasal cannula. He has leukocytosis with 16.8. Rest of CBC, BMP is unremarkable Urine sample was concentrated CT of the abdomen and pelvis showing left lower lobe infiltrate and gallbladder findings suspicious for acute cholecystitis with associated possible duodenitis EKG shows sinus rhythm at [address]-T changes but there is evidence of first-degree AV block, I reviewed the EKG by myself and there is a P wave rather than F-wave. Patient is admitted with surgical team consultation. I discussed the case with surgery team given his comorbidity the surgeon felt patient is high risk for procedure and was considering cholecystostomy as an alternative plan however IR service are not available this week to perform such procedure. At this time patient admitted to the general medical floor with close monitoring. 10/16/2024 Patient is seen and evaluated in follow-up with general surgery and cardiology following. Patient tentatively scheduled to undergo cholecystectomy awaiting cardiology clearance given significant history. Patient does not have history of A-fib but does have other cardiac issues including heart failure. Patient was continued on IV hydration which has been discontinued and will give a dose of Lasix. Patient would be considered moderate to high risk although relatively stable I would like to proceed with the surgery. Currently awaiting 2D echo at this time. 10/17/2024 Patient is seen in follow-up today actively having right upper quadrant pain and vomiting at this time. Patient is continued on 2 L via nasal cannula denies shortness of breath or chest pains. Patient is having some dyspepsia and will continue IV Protonix twice daily. General surgery following and was awaiting cardiac clearance for surgical intervention. Given patient's age and comorbidities patient is moderate risk although continues to be symptomatic, would recommend proceeding with surgical intervention at this time. Patient and family at the bedside are agreeable with moving forward with surgery. 10/18/2024 Patient is seen in follow-up today with general surgery following and has been evaluated by pulmonary as well as cardiology and although moderate risk has been cleared for surgery. Plan for gallbladder removal on 10/19/[address] Montalvo. Patient is tolerating low fiber diet and will be NPO at midnight. Will repeat am labs and continue supportive care. Recommend incentive spirometer use now. 10/19/2024 Patient evaluated in follow up today on the medical floor. He is currently pen ding robotic assisted cholecystectomy which has been rescheduled for tomorrow. He states he had breakfast today and not having any abdominal pain afterwards. No acute complaints currently. Chest xray today reveals resolution of previous CHF. Some platelike atelectasis is at the left base. Patient has been using the incentive spirometer at the bedside. Labs today reveal sodium level 135. White blood cell count 14.5, LFTs improving. Review of systems: Constitutional: No reports of fatigue, fever, or chills Cardiovascular: No reports of chest pain or palpitations Respiratory: No reports of shortness of breath or cough GI: reports of occasional nausea although improved with nausea medications, no further episodes of vomiting today, no diarrhea, reports abdominal tenderness in the right upper quadrant : No reports of dysuria or retention Neurovascular: No reports of weakness or numbness All medications have been reviewed Physical exam: GENERAL: The patient is alert and oriented x3, Well developed, elderly appearing, ill-appearing HEENT: Pupils are round and equally reacting to light. EOMI. No scleral icterus. No conjunctival pallor. Normocephalic, atraumatic. No pharyngeal erythema. No thyromegaly. CARDIOVASCULAR: S1 and S2 present. No murmurs, rubs, or gallops. -PULMONARY: Diminished breath sounds bilaterally otherwise chest is clear to auscultation, no wheezing , no crackles. Mildly tachypneic ABDOMEN: Soft, RUQ tenderness with deep palpation, no rebound tenderness, nondistended, normoactive bowel sounds. No palpable organomegaly. MUSCULOSKELETAL: No joint swelling or deformity. EXTREMITIES: No cyanosis, clubbing, or pedal edema. NEUROLOGICAL: Gross neurological examination did not reveal any focal deficits. Diffusely weak SKIN: No rashes. no petechiae. Assessment: Acute cholecystitis, tentatively scheduled for cholecystectomy 10/20/24 Left lower lobe pneumonia, present on admission Acute hypoxic respiratory failure, secondary to above Sepsis with tachypnea, leukocytosis and mild fever, present on admission, likely secondary to acute cholecystitis Generalized weakness with recent fall at home GI prophylaxis DVT prophylaxis Full code Plan: Continue with Zosyn Cultures thus far negative General Surgery following and tentatively scheduled for cholecystectomy 10/20. Recommend incentive spirometer and education on proper use. Cardiology has evaluated the patient and patient is moderate risk of surgical intervention and risks versus benefits including was explained and patient and family at the bedside are willing to proceed with surgery. Cardio has signed off Given patient's age and significant comorbidities, would place the patient at moderate to high risk for surgical intervention although patient is relatively stable and would like to proceed with surgical intervention. Patient will be NPO at midnight. Follow up on repeat labs in am. The impression and plan of care has been dictated by Leigh Ann Zamora, Nurse Practitioner as directed. Dr. Isis MD I have performed a history and examination and MDM of this patient, discussed the same with the dictator, and agree with the dictator's assessment and plan as written ,documented as a scribe. Based on total visit time, I have performed more than 50% of the visit. Objective - Vital Signs Vital signs: Vital Signs Temp 97.6 F 10/19/24 07:00 Pulse 73 10/19/24 07:00 Resp 16 10/19/24 07:00 BP 159/53 10/19/24 07:00 Pulse Ox 92 L 10/19/24 07:00 FiO2 Intake & Output 10/18/24 10/19/24 10/19/24 18:59 06:59 18:59 Intake Total 480 Output Total 450 300 Balance 30 -300 Intake: Oral 480 Output: Urine 450 300 Other: # Bowel Movements 1 1 - Labs CBC & Chem 7: 10/19/24 06:10 10/19/24 06:10 Labs: Abnormal Lab Results - Last 24 Hours (Table) 10/19/24 10/19/24 Range/Units 06:10 06:10 WBC 14.5 H (3.8-10.6) k/uL Neutrophils # 12.2 H (1.3-7.7) k/uL Sodium 135 L (137-145) mmol/L Chloride 96 L (98-107) mmol/L Carbon Dioxide 34 H (22-30) mmol/L Glucose 102 H (74-99) mg/dL ALT 57 H (4-49) U/L Total Protein 5.6 L (6.3-8.2) g/dL Albumin 3.0 L (3.5-5.0) g/dL Microbiology - Last 24 Hours (Table) 10/15/24 09:02 Blood Culture - Preliminary Blood Assessment and Plan Time with Patient: Less than 30
--- NOTE | 2024-10-19 22:29 | P.PN ---
Subjective pt seen and evaluated at bedside. Patient doing well, denies abdominal pain. Objective - Vital Signs Vital signs: Vital Signs Temp 97.5 F L 10/19/24 19:20 Pulse 77 10/19/24 19:20 Resp 16 10/19/24 19:20 BP 125/64 10/19/24 19:20 Pulse Ox 97 10/19/24 19:20 FiO2 Intake & Output 10/19/24 10/19/24 10/20/24 06:59 18:59 06:59 Intake Total 118 Output Total 300 650 Balance -300 -532 Intake: Oral 118 Output: Urine 300 650 Other: Voiding Method External Catheter # Voids 2 # Bowel Movements 1 1 - Exam GEN no acute distress Cardiovascular regular rate and rhythm Pulmonary nonlabored breathing Abdomen soft nontender nondistended no guarding rebound tenderness - Labs CBC & Chem 7: 10/19/24 06:10 10/19/24 06:10 Labs: Abnormal Lab Results - Last 24 Hours (Table) 10/19/24 10/19/24 Range/Units 06:10 06:10 WBC 14.5 H (3.8-10.6) k/uL Neutrophils # 12.2 H (1.3-7.7) k/uL Sodium 135 L (137-145) mmol/L Chloride 96 L (98-107) mmol/L Carbon Dioxide 34 H (22-30) mmol/L Glucose 102 H (74-99) mg/dL ALT 57 H (4-49) U/L Total Protein 5.6 L (6.3-8.2) g/dL Albumin 3.0 L (3.5-5.0) g/dL Assessment and Plan Assessment: OR tomorrow, npo after midnight
[2024-10-20] MEDS: FAMOTIDINE 20 MG TAB PO SCH (07:48)
[2024-10-20] MEDS: IV FLUID CONTINUATION 1,000 ML IV ONE (08:43)
[2024-10-20] MEDS: LACTATED RINGERS 1,000 ML BAG IV STA (08:46)
[2024-10-20] MEDS: ONDANSETRON 4 MG/2 ML VIAL IVP STA (08:48)
[2024-10-20] MEDS ORDERED: SUCCINYLCHOLINE CHLORIDE 200 MG/10 ML VIAL IV ONE (08:57)
[2024-10-20] MEDS ORDERED: ROCURONIUM 10 MG/ML (5 ML VIAL) IV ONE (08:57)
[2024-10-20] MEDS ORDERED: fentaNYL (PF) 50 MCG/ML 2 ML AMP ONE (08:57)
[2024-10-20] MEDS ORDERED: PROPOFOL 10 MG/ML 20 ML VIAL IV ONE (08:57)
[2024-10-20] MEDS: LACTATED RINGERS 1,000 ML IV ONE ×2 (09:00→10:35)
[2024-10-20 09:25] LABS: Basophils % (A) 0.6 %; Eosinophils # (A) 0.42 X 10*3/uL (0.04-0.35); Eosinophils % (A) 2.7 %; HCT 39.6 % (39.6-50.0); HGB 12.8 g/dL (13.0-17.0); Lymphocytes % (A) 8.4 %; MCH 29.4 pg (27.0-32.0); MCHC 32.3 g/dL (32.0-37.0); MCV 90.8 FL (80.0-97.0); Mean Platelet Volume 9.3 FL (9.5-12.2); Monocytes # (A) 0.89 X 10*3/uL (0.20-1.00); Monocytes % (A) 5.7 %; NRBC Per 100 WBC 0 X 10*3/uL (0.00-0.01); Neutrophils # (A) 12.56 X 10*3/uL (1.80-7.70); Neutrophils % (A) 80.9 %; Platelet Count 359 X 10*3/uL (140-440); RBC 4.36 X 10*6/uL (4.40-5.60); RDW 12.4 % (11.5-14.5); WBC 15.53 X 10*3/uL (4.50-10.00)
[2024-10-20] MEDS: LIDOCAINE 1%-EPI 1:100,000 20 ML VIAL SQ ONE ×2 (09:33→10:34)
[2024-10-20] MEDS: HYDROmorphone 0.5 MG/0.5 ML SYRINGE IVP STA (11:03)
[2024-10-20] MEDS: KETOROLAC 15 MG/ML 1 ML VIAL IVP STA (11:15)
[2024-10-20] MEDS: LABETALOL SYRINGE 5 MG/ML (4 ML SYR) IVP STA (11:25)
[2024-10-20 11:52] LABS: BUN/Creat Ratio 8.43 Ratio (12.00-20.00); Blood Urea Nitrogen 5.9 mg/dL (9.0-27.0); Calcium 8.2 mg/dL (8.7-10.3); Carbon Dioxide 28.2 mmol/L (21.6-31.8); Chloride 100 mmol/L (96-109); Glucose 111 mg/dL (70-110); Potassium 3.7 mmol/L (3.5-5.5); Sodium 137 mmol/L (135-145)
[2024-10-20] MEDS: INDOCYANINE GREEN 25 MG VIAL IV STA (13:28)
--- NOTE | 2024-10-20 18:25 | P.OP ---
Date of Procedure: 10/20/24 Preoperative Diagnosis: acute cholecystitis Postoperative Diagnosis: gangrenous acute cholecystitis Procedure(s) Performed: by consistent cholecystectomy with J-P drain placement Anesthesia: MICHELLE Surgeon: Adria Montalvo Pathology: none sent Condition: stable Disposition: PACU Indications for Procedure: Acute cholecystitis Operative Findings: gangrenous gallbladder Description of Procedure: patient was brought to the operating room where he was converted in sterile fashion and timeout was performed and everyone agreed with the information resided X #15 blade was then used making incision in the left upper quadrant and a 5 mm Visiport was then used to gain access to the abdomen. Next number working plates were placed in the mid abdomen and right upper quadrant. These were all 8 mm ports A 5 mm port was then exchanged for an an 8 mm port and then the robot was undocked. Upon entering the abdomen the gallbladder was not visualized it was surrounded by omentum and small bowel this was carefully taken down with blunt dissection once this was done I immediately saw gangrenous patches of the gallbladder wall. This was very difficult to dissect through so I decided to do a dome down approach taking down the lateral and medial attachments not going below the right view sulcus. Once the gallbladder was removed the gallbladder fossa to use a 45 blue staple load to staple across the duct and the artery. This is placed in an Endo Catch and passed off for specimen. The abdomen was then suctioned and a hemostatic, was performed Zehn powder 2 was applied a DERECK drain was placed in the right upper quadrant underneath the liver this was sutured in using 2-0 nylon all other measurements were removed out of the abdomen intact. The left lower quadrants and it was closed using a Gerard Rushing device. This incisions were closed using 4-0 Vicryl suture in an interrupted fashion.
[2024-10-20] MEDS ORDERED: ONDANSETRON 4 MG/2 ML VIAL IVP PRN (21:06)
[2024-10-20] MEDS ORDERED: ACETAMINOPHEN TAB 325 MG TAB PO PRN (21:06)
--- NOTE | 2024-10-20 21:07 | P.PN ---
Subjective Progress Note Date: 10/20/24 Patient is a pleasant 89 years old male with multiple medical problems as below. Presents because of abdominal pain. Information were obtained with the help of 2 female family members including at bedside. Patient presents with abdominal pain which she described as severe in the right upper quadrant radiating up to the right shoulder. Associated with rigidity in his abdomen on touch. Pain is sharp associated with low appetite. With no diarrhea. Patient also reports falling about 1 week earlier. Patient also complaining from little shortness of breath with little coughing but no overt chest pain No urinary complaint, no headache dizziness weakness or numbness Patient is afebrile currently, here and there he has mild grade temperature of 99.2, is slightly tachypneic RR 20/min, blood pressure is stable and he is saturating 93% on 2 to 3 L oxygen via nasal cannula. He has leukocytosis with 16.8. Rest of CBC, BMP is unremarkable Urine sample was concentrated CT of the abdomen and pelvis showing left lower lobe infiltrate and gallbladder findings suspicious for acute cholecystitis with associated possible duodenitis EKG shows sinus rhythm at [address]-T changes but there is evidence of first-degree AV block, I reviewed the EKG by myself and there is a P wave rather than F-wave. Patient is admitted with surgical team consultation. I discussed the case with surgery team given his comorbidity the surgeon felt patient is high risk for procedure and was considering cholecystostomy as an alternative plan however IR service are not available this week to perform such procedure. At this time patient admitted to the general medical floor with close monitoring. 10/16/2024 Patient is seen and evaluated in follow-up with general surgery and cardiology following. Patient tentatively scheduled to undergo cholecystectomy awaiting cardiology clearance given significant history. Patient does not have history of A-fib but does have other cardiac issues including heart failure. Patient was continued on IV hydration which has been discontinued and will give a dose of Lasix. Patient would be considered moderate to high risk although relatively stable I would like to proceed with the surgery. Currently awaiting 2D echo at this time. 10/17/2024 Patient is seen in follow-up today actively having right upper quadrant pain and vomiting at this time. Patient is continued on 2 L via nasal cannula denies shortness of breath or chest pains. Patient is having some dyspepsia and will continue IV Protonix twice daily. General surgery following and was awaiting cardiac clearance for surgical intervention. Given patient's age and comorbidities patient is moderate risk although continues to be symptomatic, would recommend proceeding with surgical intervention at this time. Patient and family at the bedside are agreeable with moving forward with surgery. 10/18/2024 Patient is seen in follow-up today with general surgery following and has been evaluated by pulmonary as well as cardiology and although moderate risk has been cleared for surgery. Plan for gallbladder removal on 10/19/[address] Montalvo. Patient is tolerating low fiber diet and will be NPO at midnight. Will repeat am labs and continue supportive care. Recommend incentive spirometer use now. 10/19/2024 Patient evaluated in follow up today on the medical floor. He is currently pen ding robotic assisted cholecystectomy which has been rescheduled for tomorrow. He states he had breakfast today and not having any abdominal pain afterwards. No acute complaints currently. Chest xray today reveals resolution of previous CHF. Some platelike atelectasis is at the left base. Patient has been using the incentive spirometer at the bedside. Labs today reveal sodium level 135. White blood cell count 14.5, LFTs improving. 10/20/2024 Patient going for laproscopic robotic assisted cholecystectomy today. Postoperative diagnosis of gangrenous acute petrona per surgical reports. Blood culture is negative. White blood cell count 15.53. Hemoglobin 12.8. Sodium better at 137. Review of systems: Constitutional: No reports of fatigue, fever, or chills Cardiovascular: No reports of chest pain or palpitations Respiratory: No reports of shortness of breath or cough GI: reports of occasional nausea although improved with nausea medications, no further episodes of vomiting today, no diarrhea, reports abdominal tenderness in the right upper quadrant : No reports of dysuria or retention Neurovascular: No reports of weakness or numbness All medications have been reviewed Physical exam: GENERAL: The patient is alert and oriented x3, Well developed, elderly appearing, ill-appearing HEENT: Pupils are round and equally reacting to light. EOMI. No scleral icterus. No conjunctival pallor. Normocephalic, atraumatic. No pharyngeal erythema. No thyromegaly. CARDIOVASCULAR: S1 and S2 present. No murmurs, rubs, or gallops. -PULMONARY: Diminished breath sounds bilaterally otherwise chest is clear to auscultation, no wheezing , no crackles. Mildly tachypneic ABDOMEN: Soft, RUQ tenderness with deep palpation, no rebound tenderness, nondistended, normoactive bowel sounds. No palpable organomegaly. MUSCULOSKELETAL: No joint swelling or deformity. EXTREMITIES: No cyanosis, clubbing, or pedal edema. NEUROLOGICAL: Gross neurological examination did not reveal any focal deficits. Diffusely weak SKIN: No rashes. no petechiae. Assessment: Acute cholecystitis, tentatively scheduled for cholecystectomy 10/20/24 Left lower lobe pneumonia, present on admission Acute hypoxic respiratory failure, secondary to above Sepsis with tachypnea, leukocytosis and mild fever, present on admission, likely secondary to acute cholecystitis Generalized weakness with recent fall at home GI prophylaxis DVT prophylaxis Full code Plan: Continue with Zosyn Blood culture currently negative. General Surgery following and patient going for cholecystectomy 10/20. Recommend incentive spirometer and education on proper use. Cardiology has evaluated the patient and patient is moderate risk of surgical intervention and risks versus benefits including was explained and patient and family at the bedside are willing to proceed with surgery. Cardio has signed off Given patient's age and significant comorbidities, would place the patient at moderate to high risk for surgical intervention although patient is relatively stable and would like to proceed with surgical intervention. Repeat chest xray in the am and follow up on repeat labs in am. PT/OT are consulted. The impression and plan of care has been dictated by Leigh Ann Zamora, Nurse Practitioner as directed. Dr. Isis MD I have performed a history and examination and MDM of this patient, discussed the same with the dictator, and agree with the dictator's assessment and plan as written ,documented as a scribe. Based on total visit time, I have performed more than 50% of the visit. Objective - Vital Signs Vital signs: Vital Signs Temp 98.5 F 10/20/24 19:10 Pulse 85 10/20/24 19:10 Resp 22 10/20/24 19:10 BP 132/70 10/20/24 19:10 Pulse Ox 96 10/20/24 19:10 FiO2 Intake & Output 10/20/24 10/20/24 10/21/24 06:59 18:59 06:59 Intake Total 1350 Output Total 600 995 Balance -600 355 Intake: IV 1350 Output: Drainage 25 Right Lower Abdomen 25 Urine 600 950 Straight 550 Estimated Blood Loss 20 Other: Voiding Method External Catheter External Catheter # Voids 1 - Labs CBC & Chem 7: 10/20/24 04:41 10/20/24 04:41 Labs: Abnormal Lab Results - Last 24 Hours (Table) 10/20/24 10/20/24 Range/Units 04:41 04:41 WBC 15.53 H (4.50-10.00) X 10*3/uL RBC 4.36 L (4.40-5.60) X 10*6/uL Hgb 12.8 L (13.0-17.0) g/dL MPV 9.3 L (9.5-12.2) FL Immature Gran # 0.26 H (0.00-0.04) X 10*3/uL Neutrophils # 12.56 H (1.80-7.70) X 10*3/uL Eosinophils # 0.42 H (0.04-0.35) X 10*3/uL BUN 5.9 L (9.0-27.0) mg/dL BUN/Creatinine Ratio 8.43 L (12.00-20.00) Ratio Glucose 111 H (70-110) mg/dL Calcium 8.2 L (8.7-10.3) mg/dL Microbiology - Last 24 Hours (Table) 10/15/24 09:02 Blood Culture - Final Blood Assessment and Plan Time with Patient: Less than 30
--- NOTE | 2024-10-21 07:07 | XR ---
EXAMINATION TYPE: XR chest 2V DATE OF EXAM: 10/21/2024 6:55 AM COMPARISON: Chest x-ray 2 days earlier. CLINICAL INDICATION: Male, 89 years old with history of hypoxia, TECHNIQUE: Frontal and lateral views of the chest are obtained. FINDINGS: There are increasing bibasilar opacities. Upper lungs remain clear. The cardiac silhouette size is stable and upper limits of normal. Surgical change right humeral head is noted. IMPRESSION: New small bilateral pleural effusions and worsening bibasilar acute infiltrates and/or at electasis. [facility] Antonieta Sharif, , 10/21/2024 7:05 AM
[2024-10-21 08:41] LABS: Basophils # (A) 0.05 X 10*3/uL (0.00-0.10); Basophils % (A) 0.3 %; Eosinophils # (A) 0.16 X 10*3/uL (0.04-0.35); HCT 39.1 % (39.6-50.0); HGB 12.8 g/dL (13.0-17.0); Lymphocytes # (A) 0.91 X 10*3/uL (0.90-5.00); Lymphocytes % (A) 5.9 %; MCH 29.6 pg (27.0-32.0); MCHC 32.7 g/dL (32.0-37.0); MCV 90.3 FL (80.0-97.0); Mean Platelet Volume 9.2 FL (9.5-12.2); Monocytes # (A) 0.89 X 10*3/uL (0.20-1.00); Monocytes % (A) 5.8 %; NRBC Per 100 WBC 0 X 10*3/uL (0.00-0.01); Neutrophils # (A) 13.09 X 10*3/uL (1.80-7.70); Neutrophils % (A) 85.4 %; Platelet Count 368 X 10*3/uL (140-440); RBC 4.33 X 10*6/uL (4.40-5.60); RDW 12.7 % (11.5-14.5); WBC 15.34 X 10*3/uL (4.50-10.00)
[2024-10-21 08:44] LABS: Blood Urea Nitrogen 7.7 mg/dL (9.0-27.0); Calcium 8.1 mg/dL (8.7-10.3); Carbon Dioxide 29.3 mmol/L (21.6-31.8); Chloride 99 mmol/L (96-109); Glucose 145 mg/dL (70-110); Sodium 138 mmol/L (135-145)
[2024-10-21] MEDS: HEPARIN SODIUM,PORCINE 5,000 UNIT/ML 1 ML VIAL SQ SCH (09:53)
[2024-10-21] MEDS: TAMSULOSIN 0.4 MG CAP.ER.24H PO SCH (12:37)
--- NOTE | 2024-10-21 12:50 | P.PN ---
Subjective Progress Note Date: 10/21/24 SURGICAL PROGRESS NOTE CHIEF COMPLAINT: Acute cholecystitis HISTORY OF PRESENT ILLNESS: Patient postop day #1 status post laparoscopic cholecystectomy. Patient reports his pain is controlled. He is sitting up in a chair. He had an episode of urinary retention and had to be straight cath. He does take prostate medication at home. He denies any nausea or vomiting. His pain is controlled. Afebrile. WBC is 15.34 Hgb 12.8 DERECK drain 45 mL output PHYSICAL EXAM: VITAL SIGNS: Reviewed. GENERAL: Well-developed in no acute distress. ABDOMEN: Soft. Nondistended. Incision sites clean dry and intact. DERECK drain output dark NEUROLOGIC: Alert and oriented. Cranial nerves II through XII grossly intact. ASSESSMENT: 1. Gangrenous cholecystitis status post laparoscopic cholecystectomy PLAN: -Continue antibiotics -Patient will need antibiotics at discharge -Encourage patient to increase activity level -Continue to monitor for urinary retention. Flomax added due to enlarged prostate history -Anticipate discharge tomorrow Physician [employer] note has been reviewed by physician. Signing provider agrees with the documented findings, assessment, and plan of care. Attestation Patient seen and examined at bedside. Postoperative day #1 status post laparoscopic cholecystectomy. Patient appears to be doing well. White count is slightly elevated. Continue IV antibiotics. Continue DERECK drain. Will require antibiotics at discharge. Encouraged patient to increase activity. Will continue to follow with urinary retention as well. Lesley Robles, Objective - Vital Signs Vital signs: Vital Signs Temp 98.4 F 10/21/24 07:10 Pulse 60 10/21/24 07:10 Resp 18 10/21/24 07:10 BP 145/75 10/21/24 07:10 Pulse Ox 92 L 10/21/24 07:10 FiO2 Intake & Output 10/20/24 10/21/24 10/21/24 18:59 06:59 18:59 Intake Total 1350 Output Total 995 80 Balance 355 -80 Intake: IV 1350 Output: Drainage 25 30 Right Lower Abdomen 25 30 Urine 950 50 Straight 550 Estimated Blood Loss 20 Other: Voiding Method External Catheter External Catheter External Catheter - Labs CBC & Chem 7: 10/21/24 04:08 10/21/24 04:08 Labs: Abnormal Lab Results - Last 24 Hours (Table) 10/21/24 10/21/24 Range/Units 04:08 04:08 WBC 15.34 H (4.50-10.00) X 10*3/uL RBC 4.33 L (4.40-5.60) X 10*6/uL Hgb 12.8 L (13.0-17.0) g/dL Hct 39.1 L (39.6-50.0) % MPV 9.2 L (9.5-12.2) FL Immature Gran # 0.24 H (0.00-0.04) X 10*3/uL Neutrophils # 13.09 H (1.80-7.70) X 10*3/uL BUN 7.7 L (9.0-27.0) mg/dL BUN/Creatinine Ratio 11.00 L (12.00-20.00) Ratio Glucose 145 H (70-110) mg/dL Calcium 8.1 L (8.7-10.3) mg/dL Microbiology - Last 24 Hours (Table) 10/15/24 09:02 Blood Culture - Final Blood
[2024-10-21] MEDS: FUROSEMIDE 10 MG/ML 4 ML VIAL IV STA (15:29)
--- NOTE | 2024-10-22 00:43 | P.PN ---
Subjective Progress Note Date: 10/21/24 Patient is a pleasant 89 years old male with multiple medical problems as below. Presents because of abdominal pain. Information were obtained with the help of 2 female family members including at bedside. Patient presents with abdominal pain which she described as severe in the right upper quadrant radiating up to the right shoulder. Associated with rigidity in his abdomen on touch. Pain is sharp associated with low appetite. With no diarrhea. Patient also reports falling about 1 week earlier. Patient also complaining from little shortness of breath with little coughing but no overt chest pain No urinary complaint, no headache dizziness weakness or numbness Patient is afebrile currently, here and there he has mild grade temperature of 99.2, is slightly tachypneic RR 20/min, blood pressure is stable and he is saturating 93% on 2 to 3 L oxygen via nasal cannula. He has leukocytosis with 16.8. Rest of CBC, BMP is unremarkable Urine sample was concentrated CT of the abdomen and pelvis showing left lower lobe infiltrate and gallbladder findings suspicious for acute cholecystitis with associated possible duodenitis EKG shows sinus rhythm at [address]-T changes but there is evidence of first-degree AV block, I reviewed the EKG by myself and there is a P wave rather than F-wave. Patient is admitted with surgical team consultation. I discussed the case with surgery team given his comorbidity the surgeon felt patient is high risk for procedure and was considering cholecystostomy as an alternative plan however IR service are not available this week to perform such procedure. At this time patient admitted to the general medical floor with close monitoring. 10/16/2024 Patient is seen and evaluated in follow-up with general surgery and cardiology following. Patient tentatively scheduled to undergo cholecystectomy awaiting cardiology clearance given significant history. Patient does not have history of A-fib but does have other cardiac issues including heart failure. Patient was continued on IV hydration which has been discontinued and will give a dose of Lasix. Patient would be considered moderate to high risk although relatively stable I would like to proceed with the surgery. Currently awaiting 2D echo at this time. 10/17/2024 Patient is seen in follow-up today actively having right upper quadrant pain and vomiting at this time. Patient is continued on 2 L via nasal cannula denies shortness of breath or chest pains. Patient is having some dyspepsia and will continue IV Protonix twice daily. General surgery following and was awaiting cardiac clearance for surgical intervention. Given patient's age and comorbidities patient is moderate risk although continues to be symptomatic, would recommend proceeding with surgical intervention at this time. Patient and family at the bedside are agreeable with moving forward with surgery. 10/18/2024 Patient is seen in follow-up today with general surgery following and has been evaluated by pulmonary as well as cardiology and although moderate risk has been cleared for surgery. Plan for gallbladder removal on 10/19/[address] Montalvo. Patient is tolerating low fiber diet and will be NPO at midnight. Will repeat am labs and continue supportive care. Recommend incentive spirometer use now. 10/19/2024 Patient evaluated in follow up today on the medical floor. He is currently pending robotic assisted cholecystectomy which has been rescheduled for tomorrow. He states he had breakfast today and not having any abdominal pain afterwards. No acute complaints currently. Chest xray today reveals resolution of previous CHF. Some platelike atelectasis is at the left base. Patient has been using the incentive spirometer at the bedside. Labs today reveal sodium level 135. White blood cell count 14.5, LFTs improving. 10/20/2024 Patient going for laproscopic robotic assisted cholecystectomy today. Postoperative diagnosis of gangrenous acute petrona per surgical reports. Blood cu lture is negative. White blood cell count 15.53. Hemoglobin 12.8. Sodium better at 137. 10/21/2024 Patient is seen in follow-up today status post cholecystectomy with general surgery yesterday. Patient reports to feeling well with some mild discomfort of the abdomen. Patient per nursing staff is generally weak and awaiting to work with physical therapy. Plan will be to return home with family. Patient is afebrile and white count remains elevated at 15 and will continue on antibiotics. Likely oral antibiotics on discharge per general surgery. Patient does have some bronchial congestion recommend holding any IV fluids as patient is tolerating diet and will give a dose of Lasix. Chest x-ray shows mild pleural effusion and atelectasis. Patient needs constant re-encouragement on using incentive spirometer. Review of systems: Constitutional: No reports of fatigue, fever, or chills Cardiovascular: No reports of chest pain or palpitations Respiratory: reports of shortness of breath, denies cough GI: No reports of nausea vomiting, or diarrhea, patient is passing gas and had a bowel movement : No reports of dysuria or retention Neurovascular: reports of generalized weakness All medications have been reviewed Physical exam: GENERAL: The patient is alert and oriented x3, Well developed, elderly appearing, ill-appearing HEENT: Pupils are round and equally reacting to light. EOMI. No scleral icterus. No conjunctival pallor. Normocephalic, atraumatic. No pharyngeal erythema. No thyromegaly. CARDIOVASCULAR: S1 and S2 present. No murmurs, rubs, or gallops. -PULMONARY: Diminished breath sounds bilaterally otherwise chest is clear to auscultation, no wheezing , no crackles. Mildly tachypneic ABDOMEN: Soft, RUQ tenderness , no rebound tenderness, nondistended, normoac tive bowel sounds. No palpable organomegaly. Surgical sites are intact MUSCULOSKELETAL: No joint swelling or deformity. EXTREMITIES: No cyanosis, clubbing, or pedal edema. NEUROLOGICAL: Gross neurological examination did not reveal any focal deficits. Diffusely weak SKIN: No rashes. no petechiae. Assessment: Acute cholecystitis, status post cholecystectomy 10/20/24 Left lower lobe pneumonia, present on admission Acute hypoxic respiratory failure, secondary to above Sepsis with tachypnea, leukocytosis and mild fever, prsent on admission, likely secondary to acute cholecystitis Generalized weakness with recent fall at home GI prophylaxis DVT prophylaxis Full code Plan: Continue with Zosyn as patient is status post cholecystectomy. Per surgery continue antibiotics and will transition to oral antibiotics on discharge. White count remains mildly elevated although trending down recommend follow-up labs Blood culture remain negative General Surgery following and patient status post cholecystectomy 10/20. Recommend incentive spirometer and education on proper use. Continue to reencourage and reinforce. Chest x-ray shows some mild pleural effusion and atelectasis. Will give a dose of IV Lasix. Wean FiO2 as tolerated as patient does not wear oxygen outpatient PT/OT therapy to evaluate as patient with generalized weakness. Plan will be to return home with home care on discharge. Possible discharge planning in the next 24 hours The impression and plan of care has been dictated by Yesy Tierney, Nurse Practitioner as directed. Dr. Isis MD I have performed a history and examination and MDM of this patient, discussed the same with the dictator, and agree with the dictator's assessment and plan as written ,documented as a scribe. Based on total visit time, I have performed more than 50% of the visit. Objective - Vital Signs Vital signs: Vital Signs Temp 98.4 F 10/21/24 07:10 Pulse 60 10/21/24 07:10 Resp 18 10/21/24 07:10 BP 145/75 10/21/24 07:10 Pulse Ox 92 L 10/21/24 07:10 FiO2 Intake & Output 10/20/24 10/21/24 10/21/24 18:59 06:59 18:59 Intake Total 1350 Output Total 995 80 Balance 355 -80 Intake: IV 1350 Output: Drainage 25 30 Right Lower Abdomen 25 30 Urine 950 50 Straight 550 Estimated Blood Loss 20 Other: Voiding Method External Catheter External Catheter - Labs CBC & Chem 7: 10/21/24 04:08 10/21/24 04:08 Labs: Abnormal Lab Results - Last 24 Hours (Table) 10/20/24 10/21/24 10/21/24 Range/Units 04:41 04:08 04:08 WBC 15.34 H (4.50-10.00) X 10*3/uL RBC 4.33 L (4.40-5.60) X 10*6/uL Hgb 12.8 L (13.0-17.0) g/dL Hct 39.1 L (39.6-50.0) % MPV 9.2 L (9.5-12.2) FL Immature Gran # 0.24 H (0.00-0.04) X 10*3/uL Neutrophils # 13.09 H (1.80-7.70) X 10*3/uL BUN 5.9 L 7.7 L (9.0-27.0) mg/dL BUN/Creatinine Ratio 8.43 L 11.00 L (12.00-20.00) Ratio Glucose 111 H 145 H (70-110) mg/dL Calcium 8.2 L 8.1 L (8.7-10.3) mg/dL Microbiology - Last 24 Hours (Table) 10/15/24 09:02 Blood Culture - Final Blood
[2024-10-22 09:38] LABS: Basophils % (A) 0 %; Eosinophils # (A) 0.2 k/uL (0-0.7); Eosinophils % (A) 2 %; HGB 13.1 gm/dL (13.0-17.5); Lymphocytes # (A) 1.1 k/uL (1.0-4.8); Lymphocytes % (A) 11 %; MCH 28.5 pg (25.0-35.0); MCHC 31.1 g/dL (31.0-37.0); MCV 91.7 fL (80.0-100.0); Mean Platelet Volume 7.1; Monocytes # (A) 0.5 k/uL (0-1.0); Monocytes % (A) 5 %; Neutrophils # (A) 8.2 k/uL (1.3-7.7); Neutrophils % (A) 81 %; Platelet Count 394 k/uL (150-450); RBC 4.58 m/uL (4.30-5.90); RDW 12.9 % (11.5-15.5); WBC 10.1 k/uL (3.8-10.6)
--- NOTE | 2024-10-22 11:24 | P.PN ---
Subjective Progress Note Date: 10/22/24 SURGICAL PROGRESS NOTE CHIEF COMPLAINT: Acute cholecystitis HISTORY OF PRESENT ILLNESS: Patient postop day #2 status post laparoscopic cholecystectomy. Patient sitting at bedside chair. Pain is controlled. Denies any nausea or vomiting. DERECK drain with 30 mL purulent output. Afebrile. WBC normalized at 10.1 PHYSICAL EXAM: VITAL SIGNS: Reviewed. GENERAL: Well-developed in no acute distress. ABDOMEN: Soft. Nondistended. Incision sites clean dry and intact. DERECK drain output purulent NEUROLOGIC: Alert and oriented. Cranial nerves II through XII grossly intact. ASSESSMENT: 1. Gangrenous cholecystitis status post laparoscopic cholecystectomy PLAN: -Patient can be discharged from surgical standpoint -Continue antibiotics at discharge -Continue DERECK drain at discharge -Social work arranging home health care at discharge Physician [employer] note has been reviewed by physician. Signing provider agrees with the documented findings, assessment, and plan of care. Objective - Vital Signs Vital signs: Vital Signs Temp 97.9 F 10/22/24 07:30 Pulse 66 10/22/24 07:30 Resp 16 10/22/24 07:30 BP 134/64 10/22/24 07:30 Pulse Ox 94 L 10/22/24 11:02 FiO2 Intake & Output 10/21/24 10/22/24 10/22/24 18:59 06:59 18:59 Intake Total 358 Output Total 1300 780 Balance -942 -780 Intake: Oral 358 Output: Drainage 30 Right Lower Abdomen 30 Urine 1300 750 Other: Voiding Method External Catheter External Catheter # Voids 2 1 # Bowel Movements 1 - Labs CBC & Chem 7: 10/22/24 09:15 10/21/24 04:08 Labs: Abnormal Lab Results - Last 24 Hours (Table) 10/22/24 Range/Units 09:15 Neutrophils # 8.2 H (1.3-7.7) k/uL
[2024-10-22 14:10] VITALS: BP 126/75; PULSE 80; RESP 17; TEMP 98.7
[2024-10-22 15:14] LABS: ALT 47 U/L (10-49); AST 43 U/L (14-35); Alkaline Phosphatase 86 U/L (41-126); BUN/Creat Ratio 8.25 Ratio (12.00-20.00); Blood Urea Nitrogen 6.6 mg/dL (9.0-27.0); Calcium 8.5 mg/dL (8.7-10.3); Carbon Dioxide 33.1 mmol/L (21.6-31.8); Chloride 96 mmol/L (96-109); Globulin 2.5 g/dL (1.6-3.3); Glucose 204 mg/dL (70-110); Potassium 3.8 mmol/L (3.5-5.5); Sodium 138 mmol/L (135-145); Total Bilirubin 0.3 mg/dL (0.3-1.2); Total Protein 5.5 g/dL (6.2-8.2)
== END 2024-10-22 17:22 | disposition home health service (06) | DRG 853 ==
LOC: EC 06:26 → 6NMEDSUR 08:27 → OBSVTOIN 10-17 08:39
PROVIDERS: ADMIT Hospitalist; ATTEND Hospitalist
PROC: 0W9G40Z Drainage of Peritoneal Cavity with Drainage Device, Percutaneous Endoscopic Approach (ICD-10-PCS; 2024-10-20)
PROC: 8E0W4CZ Robotic Assisted Procedure of Trunk Region, Percutaneous Endoscopic Approach (ICD-10-PCS; 2024-10-20)
PROC: 0FT44ZZ Resection of Gallbladder, Percutaneous Endoscopic Approach (ICD-10-PCS; principal; 2024-10-20 08:00)
DX: A41.9 Sepsis, unspecified organism (principal); J18.9 Pneumonia, unspecified organism; J96.01 Acute respiratory failure with hypoxia; K82.A1 Gangrene of gallbladder in cholecystitis; I11.0 Hypertensive heart disease with heart failure; J98.09 Other diseases of bronchus, not elsewhere classified; E11.9 Type 2 diabetes mellitus without complications; F03.90 Unspecified dementia, unspecified severity, without behavioral disturbance, psychotic disturbance, mood disturbance, and anxiety; I08.2 Rheumatic disorders of both aortic and tricuspid valves; K80.00 Calculus of gallbladder with acute cholecystitis without obstruction; J98.11 Atelectasis; I48.0 Paroxysmal atrial fibrillation; N40.0 Benign prostatic hyperplasia without lower urinary tract symptoms; E78.5 Hyperlipidemia, unspecified; I44.0 Atrioventricular block, first degree; N40.1 Benign prostatic hyperplasia with lower urinary tract symptoms; R29.6 Repeated falls; R33.8 Other retention of urine; W19.XXXA Unspecified fall, initial encounter; Z79.899 Other long term (current) drug therapy; Z96.649 Presence of unspecified artificial hip joint; Z98.42 Cataract extraction status, left eye; Z98.41 Cataract extraction status, right eye
CPT/HCPCS: 36415; 71045; 71046; 74176; 76705; 80048; 80053; 80076; 81001; 82150; 83605; 83690; 83735; 83880; 84145; 85025; 87040; 88304; 93005; 93306; 96361; 96374; 96375; 99285